=== PATIENT | female | born 1975 | race Caucasian/White ===

== ENCOUNTER 2018-09-19 16:19 | Inpatient (IN) | payer MEDICAID ==
[2018-09-19] VITALS (10 sets, daily range): BP systolic 84–184; BP diastolic 48–95; BMI 38.2
[~2018-09-19] VITALS: Ht 170.2 cm; Wt 106.8 kg
--- NOTE | 2018-09-19 18:18 | NUR ---
RECEIVED PT FROM SURVIVAL FLIGHT TO 2300 TRANSFERRED TO BED. COMFORT GLIDE AIR BLOW SLIDE SHEET PLACED UNDER BED. PT ORALLY INTUBATED SIZE 7.5 TUBE 23 CM LIPLINE VENT SETTINGS AC RATE 16 TV 450 100% PEEP 8.
--- NOTE | 2018-09-19 18:33 | NUR ---
PTS O2 SAT 78% DAVIE RT AT BEDSIDE PT ALREADY ON 100% PEEP INCREASED TO 10 STAT CXR ORDERED
--- NOTE | 2018-09-19 18:35 | NUR ---
DR MOORE ANSWERED PAGE INFORMED PTS O2 SAT 70'S SHE IS CYANOTIC AND VENT ALREADY ON 100% WITH PEEP OF 10. INFORMED RESP WAS GETTING ABG AND CHEST X RAY HERE NOW FOR STAT CHEST XRAY. ASKED WHEN HE WOULD BE HERE. HE STATED HE WOULD BE HERE IN 40-45 MIN TO CALL ABG RESULTS TO HIM
--- NOTE | 2018-09-19 18:37 | NUR ---
RT THERAPY TRYING TO GET STAT ABG
--- NOTE | 2018-09-19 18:38 | NUR ---
DR TERESA OVIEDO
--- NOTE | 2018-09-19 18:39 | NUR ---
XRAY HERE FOR STAT CHEST XRAY
--- NOTE | 2018-09-19 18:50 | NUR ---
DR MOORE PAGED WITH ABG RESULTS OF 7.269, CO2 58.6, PO2 36, HCO3 OF 26.8 HE REQUESTED TO SPEAK TO RESP THERAPIST PER RESP THERAPISTS SEE RESP NOTES FOR ORDERS.
--- NOTE | 2018-09-19 18:56 | NUR ---
CALLED LAB TO COME DRAW STAT LABS THAT ARE ORDERED
--- NOTE | 2018-09-19 19:00 | NUR ---
Received patient in bed on BiPAP 100% with Dr Pimentel at bedside, assessment completed per flowsheet. Patient restless in bed moving extremities, eyes PERRLA @ 3mm with brisk response. ETT 7.0 @ 23cm secured, OGT placed and verified by auscultation. S1/S2 noted NSR on telemetry with HR 98, rythmic and regular. Vent settings A/C R-24 V-450 100% P-12 with O2 sat 88%, crackles noted bilateral upper and mid with diminished lower. Abdomen is obese/soft with bowel sounds active x4, non-tender. Calero secured, small concentrated yellow urine noted. Weakness noted all extremities with all pulses palpable, cap refill < 3 sec with skin warm/dry. No further needs at this time, see flowsheet for details. Will continue close monitoring.
[2018-09-19 19:15] LABS: BASOPHILS 0.3 % (0-2); EOSINOPHILS 0 % (0-7); HEMATOCRIT 40.7 % (36.0-48.0); HEMOGLOBIN 14.1 g/dL (12-16); IMMATURE GRANULOCYTES 0.4 % (0-5); LYMPHOCYTES 6.8 % (15-50); MCH 32.2 pg (26.0-34.0); MCHC 34.6 g/dL (31.0-37.0); MCV 92.9 fL (80.0-100.0); MEAN PLATELET VOLUME 10.4 fL (7.4-10.4); MONOCYTES 3.3 % (2-11); NEUTROPHILS 89.2 % (40-80); PLATELET COUNT 167 10x3/uL (130-400); RBC 4.38 10x6/uL (4.00-5.40); RDW 12.7 % (11.5-14.5)
--- NOTE | 2018-09-19 19:17 | NUR ---
DR MOORE HERE DR SCHWARTZ HERE SLASHER RN KRISHNA AT BEDSIDE. PTS IS ENROUTE
[2018-09-19 19:31] LABS: ALBUMIN 2.5 g/dL (3.4-5.0); ANION GAP 15.4 mmol/L (8-16); BILIRUBIN - TOTAL 0.39 mg/dL (0.2-1.3); CALCIUM 8.1 mg/dL (8.5-10.1); CARBON DIOXIDE 24.9 mmol/L (21.0-32.0); POTASSIUM - SERUM 4.3 mmol/L (3.5-5.1); PROTEIN - SERUM 7.2 g/dL (6.4-8.2)
[2018-09-19 19:39] LABS: CALCIUM 7.8 mg/dL (8.5-10.1); CARBON DIOXIDE 25.3 mmol/L (21.0-32.0); POTASSIUM - SERUM 4.3 mmol/L (3.5-5.1)
--- NOTE | 2018-09-19 20:25 | NUR ---
Dr Pimentel at bedside to place R IJ CVL, to be verified by radiology.
--- NOTE | 2018-09-19 21:00 | NUR ---
Patient off unit to radiology for CTA of chest, patient desat to 76% with movement. Accompanied by RT with AMBU bag for ventilation, O2 sat slow to increase to 94%. Returned to 2300 and reconnected to monitors, family at bedside for visitation. Dr Pimentel/RN answered all questions to satisfaction, no further questions at this time. Will continue close monitoring.
[2018-09-19 21:25] LABS: CKMB 2.8 U/L (0.0-3.6)
[2018-09-19 21:26] LABS: CREATINE KINASE 974 UL (21-215)
[2018-09-19 21:27] LABS: TROPONIN-I 0.625 ng/mL (0.000-0.060)
--- NOTE | 2018-09-19 23:00 | NUR ---
Reassessment completed per flowsheet, patient sedated in bed on vent. S1/S2 noted NSR on telemetry with HR 74, rythmic and regular. Vent settings changed, A/C R-20 V-450 100% P-12 with O2 sat 90%. Crackles noted bilateral upper and mid with diminished lower. All pulses palpable with cap refill < 3 sec, skin warm/dry. No suctioning/repositioning per Dr Pimentel, patient decompensates quickly and slow to recover. See flowsheet for details, will continue close monitoring.
[2018-09-20] VITALS (25 sets, daily range): BP systolic 96–146; BP diastolic 49–66
--- NOTE | 2018-09-20 01:00 | NUR ---
Patient sedated in bed on vent with eyes closed, no changes from previous assessment. Will continue close monitoring.
--- NOTE | 2018-09-20 03:15 | NUR ---
Reassessment completed per flowsheet, no changes from previous assessment. S1/S2 noted NSR on telemetry, rythmic and regular. Vent settings unchanged, crackles noted bilateral upper and mid with diminished lower. All pulses palpable with cap refill < 3 sec, skin warm/dry. No further needs at thist lin, see flowsheet for details. Will continue close monitoring.
--- NOTE | 2018-09-20 05:00 | NUR ---
Patient sedated in bed on vent with eyes closed, no s/s of distress at this time. No changes from previous assessment, all VSS and will continue close monitoring.
[2018-09-20 06:50] LABS: BASOPHILS 0.2 % (0-2); EOSINOPHILS 0 % (0-7); HEMATOCRIT 35.2 % (36.0-48.0); HEMOGLOBIN 11.8 g/dL (12-16); IMMATURE GRANULOCYTES 0.3 % (0-5); LYMPHOCYTES 7.9 % (15-50); MCH 31.5 pg (26.0-34.0); MCHC 33.5 g/dL (31.0-37.0); MCV 93.9 fL (80.0-100.0); MEAN PLATELET VOLUME 10.3 fL (7.4-10.4); MONOCYTES 5.9 % (2-11); NEUTROPHILS 85.7 % (40-80); PLATELET COUNT 156 10x3/uL (130-400); RBC 3.75 10x6/uL (4.00-5.40); RDW 12.8 % (11.5-14.5); WBC 11.1 10x3/uL (4.8-10.8)
[2018-09-20 07:13] LABS: ALBUMIN 2.3 g/dL (3.4-5.0); ALKALINE PHOSPHATASE 97 U/L (46-116); ALT (SGPT) 47 U/L (10-68); BILIRUBIN - TOTAL 0.29 mg/dL (0.2-1.3); CALC OSMOLALITY 290 mosm/kg (275-300); CARBON DIOXIDE 27.1 mmol/L (21.0-32.0); CHLORIDE - SERUM 105 mmol/L (98-107); CKMB 1.9 U/L (0.0-3.6); CREATINE KINASE 770 UL (21-215); GLUCOSE 198 mg/dL (74-106); POTASSIUM - SERUM 4.7 mmol/L (3.5-5.1); PROTEIN - SERUM 6.4 g/dL (6.4-8.2); SODIUM 140 mmol/L (136-145); UREA NITROGEN 28 mg/dL (7-18); eGFR NON AFRICAN AMERICAN 64 mL/min (90-120)
[2018-09-20 07:14] LABS: TROPONIN-I 0.603 ng/mL (0.000-0.060)
--- NOTE | 2018-09-20 08:00 | NUR ---
DAVIE RESP THERAPIST AT BEDSIDE FOR EKG AND RESP TREATMENT.
--- NOTE | 2018-09-20 08:15 | NUR ---
PTS MOTHER (GILBERTO) AT BEDSIDE FOR VISITATION UPDATE GIVEN, INFORMED TRYING TO KEEP PT SEDATED
[2018-09-20 09:01] LABS: CKMB 2.1 U/L (0.0-3.6); CREATINE KINASE 779 UL (21-215)
[2018-09-20 09:02] LABS: TROPONIN-I 0.411 ng/mL (0.000-0.060)
--- NOTE | 2018-09-20 11:00 | NUR ---
HERE FOR ROUNDS
--- NOTE | 2018-09-20 12:18 | NUR ---
DR MOORE ON UNIT SEEING SEVERAL PATIENTS. FAMILY (PTS AND MOTHER) HERE FOR VISITATION INFORMED DR MOORE THEY WISHED TO SPEAK TO HIM HE STATED HE HAD A FEW PATIENTS TO SEE ELSEWHERE AND HE WOULD BE BACK TO SPEAK WITH THEM
--- NOTE | 2018-09-20 13:30 | NUR ---
DR MOORE INSTRUCTS THIS NURSE TO LOOK UP "PRONING FOR ARDS" A VIDEO ON THE NEW [employer] WEBSITE. DR MOORE STATES WE WILL DO THIS LATER TODAY. WHILE I UNDERSTAND THE THEORY AND PRACTICE WE DO NOT HAVE THE EQUIPMENT OR STAFF TO ACCOMODATE AT THIS TIME. RAMIRO GREEN RN, DAVIE RT IN AGREEMENT. NURSE OYSTER UNLOADER NOTIFIED BY PHONE.
--- NOTE | 2018-09-20 14:00 | NUR ---
IVANIA NURSE ARCHITECTURAL DRAFTING INSTRUCTOR SPEAKING WITH DR MOORE VIA PHONE ABOUT PRONING PATIENTS WITH ARDS.
--- NOTE | 2018-09-20 16:35 | NUR ---
DR MOORE HERE TO PLACE ARTLINE. HE SPOKE TO PTS SPOUSE AND PTS MOTHER INFORMED CONSENT BY PTS CONCHA.
--- NOTE | 2018-09-20 17:35 | NUR ---
PTS FAMILY AT BEDSIDE SHE HAS EYES OPEN AND HEART RATE INCREASING AND MOORE STATES INCREASE SEDATION SO DOLORES
--- NOTE | 2018-09-20 19:05 | NUR ---
Received patient sedated in bed on vent with eyes closed, assessment completed per flowsheet. ETT/OGT secured, R IJ CVL patent with dressing CDI. S1/S2 noted NSR on telemetry, rythmic and regular. Vent settings A/C R-26 V-400 100% P-14, lung sounds diminished throughout. R radial A-line zeroed with good waveform, wrist protector in use. Remaining pulses palpable with cap refill < 3 sec, skin warm/dry. No repositioning/suction per Pulmonology, see flowsheet for details. All VSS and will continue to monitor.
--- NOTE | 2018-09-20 21:00 | NUR ---
Patient sedated in bed on vent with eyes closed, family at bedside for visitation. Discussed ventilator/medications, all questions answered to satisfaction. No further needs at this time, all VSS and will continue to monitor.
--- NOTE | 2018-09-20 23:00 | NUR ---
Reassessment completed per flowsheet, no changes from previous assessment. Patient sedated on vent, settings unchanged from previous. R radial A-line with good waveform, wrist protector in use. Remaining pulses palpable with cap refill < 3 sec, skin warm/dry. No repositioning/suction per Pulmonology, no further needs at this time. See flowsheet for details, all VSS and will continue to monitor.
[2018-09-21] VITALS (36 sets, daily range): BP systolic 106–146; BP diastolic 48–87; Ht 170.2 cm; Wt 106.8 kg
--- NOTE | 2018-09-21 01:00 | NUR ---
Patient sedated in bed on vent with eyes closed, no s/s of distress at this time. All VSS and will continue to monitor.
--- NOTE | 2018-09-21 03:00 | NUR ---
Reassessment completed per flowsheet, no changes from previous assessment. ETT/OGT secured, R IJ patent with fluids infusing. Vent settings unchanged, lung sounds diminished throughout. R radial A-line with good waveform, wrist protector in use. Remaining pulses palpable with cap refill < 3 sec, skin warm/dry. No repositioning/suctioning per pulmonology, see flowsheet for details. All VSS and will continue to monitor.
[2018-09-21 04:46] LABS: BASOPHILS 0.1 % (0-2); EOSINOPHILS 0.1 % (0-7); HEMATOCRIT 32.3 % (36.0-48.0); HEMOGLOBIN 10.9 g/dL (12-16); IMMATURE GRANULOCYTES 0.5 % (0-5); LYMPHOCYTES 11.6 % (15-50); MCH 31.9 pg (26.0-34.0); MCHC 33.7 g/dL (31.0-37.0); MCV 94.4 fL (80.0-100.0); MEAN PLATELET VOLUME 10.2 fL (7.4-10.4); MONOCYTES 4.1 % (2-11); NEUTROPHILS 83.6 % (40-80); PLATELET COUNT 151 10x3/uL (130-400); RBC 3.42 10x6/uL (4.00-5.40); RDW 12.7 % (11.5-14.5); WBC 9.5 10x3/uL (4.8-10.8)
[2018-09-21 05:01] LABS: ALBUMIN 2.1 g/dL (3.4-5.0); ANION GAP 9.4 mmol/L (8-16); BILIRUBIN - TOTAL 0.62 mg/dL (0.2-1.3); CALCIUM 7.3 mg/dL (8.5-10.1); CARBON DIOXIDE 28.6 mmol/L (21.0-32.0); CREATININE - SERUM 1.1 mg/dL (0.6-1.3); PROTEIN - SERUM 6.1 g/dL (6.4-8.2)
--- NOTE | 2018-09-21 09:00 | NUR ---
SEDATION CONTINUE---SEE GRAPHIC---FAMILY AT BS
--- NOTE | 2018-09-21 13:00 | NUR ---
SEDATION CONTINUE --BECOME AGITATED AT TIMES----FAMILY AT BS --UPDATE STATUS REPORT GIVE TO FAMILY VIA DR CANNON
--- NOTE | 2018-09-21 17:00 | NUR ---
RESTING QUIETLY CONTINUE--PROPOFOL & FENTANYL CONTINUE FAMILY AT BS
--- NOTE | 2018-09-21 19:10 | NUR ---
PT RECEIVED SEDATED ON VENT. AC 26, TV 400, 100%, 14PEEP. VITAL SIGNS WNL. OGT PATENT TO PULMOCARE AT 20ML/HR AND INCREASE BY 10ML/HR Q 12HRS TOLERATED WITH GOAL OF 40ML/HR. GUNTER PATENT WITH EVELIO URINE. RIGHT IJ WITH DRESSNG C/D/I. FEET AND HANDS ELEVATED. WILL CONTINUE TO OBSERVE.
--- NOTE | 2018-09-21 20:30 | NUR ---
, MOTHER AND FRIEND IN FOR VISITATION. UPDATED ON LAB RESULTS AND ANSWERED OTHER QUESTIONS. WILL CONTINUE TO OBSERVE.
--- NOTE | 2018-09-21 21:40 | NUR ---
MOTHER LEFT UNIT. NO CONCERNS MADE KNOWN BEFORE LEAVING. JUST ASKED TO BE CALL IF CHANGE IN CONDITION. WILL CONTINUE TO OBSERVE.
--- NOTE | 2018-09-21 23:50 | NUR ---
REASSESSMENT COMPLETED, SEE FLOW SHEET. CONTINUES SEDATION WITH VENT. VITAL SIGNS REMAIN WNL, TEMP INCREASED TO 100.2, TYLENOL TO BE GIVEN. WILL CONTINUE TO OBSERVE
[2018-09-22] VITALS (24 sets, daily range): BP systolic 111–175; BP diastolic 56–75
--- NOTE | 2018-09-22 01:40 | NUR ---
PT CONTINUES SEDATION WITH VENT, NO CHANGES TO SETTINGS. FENTANYL SYRINGE CHANGED WITH NEW DIPROVAN BOTTLE. WILL CONTINUE TO OBSERVE.
--- NOTE | 2018-09-22 03:59 | NUR ---
REASSESSMENT COMPLETED, SEE FLOW SHEET. TUBE FEEDING RESIDUAL 90MLS WITH FEED RATE INCREASE TO 30ML/HR PER ORDERS. WILL CONTINUE TO OBSERVE.
[2018-09-22 04:59] LABS: BASOPHILS 0 % (0-2); EOSINOPHILS 0 % (0-7); HEMATOCRIT 30.1 % (36.0-48.0); HEMOGLOBIN 10.1 g/dL (12-16); IMMATURE GRANULOCYTES 0.3 % (0-5); LYMPHOCYTES 5.5 % (15-50); MCH 31.7 pg (26.0-34.0); MCHC 33.6 g/dL (31.0-37.0); MCV 94.4 fL (80.0-100.0); MEAN PLATELET VOLUME 9.7 fL (7.4-10.4); MONOCYTES 1.2 % (2-11); PLATELET COUNT 132 10x3/uL (130-400); RBC 3.19 10x6/uL (4.00-5.40); RDW 12.6 % (11.5-14.5)
[2018-09-22 05:00] LABS: WBC 6.8 10x3/uL (4.8-10.8)
[2018-09-22 05:30] LABS: % SATURATION 13 % (15-55); IRON 24 ug/dl (35-150); TOTAL IRON BIND CAPACITY 174 ug/dl (260-445); UNSAT IRON BIND CAPACITY 150 ug/dl (150-375)
[2018-09-22 05:37] LABS: ALBUMIN 1.9 g/dL (3.4-5.0); BILIRUBIN - TOTAL 0.47 mg/dL (0.2-1.3); CALCIUM 7.6 mg/dL (8.5-10.1); CARBON DIOXIDE 30.3 mmol/L (21.0-32.0); CREATININE - SERUM 0.9 mg/dL (0.6-1.3); PROTEIN - SERUM 6.3 g/dL (6.4-8.2)
[2018-09-22 05:40] LABS: ANION GAP 10.9 mmol/L (8-16); POTASSIUM - SERUM 5.2 mmol/L (3.5-5.1)
[2018-09-22 06:43] LABS: ERYTHROCYTE SEDIMENTATION RATE 75 mm/hr (0-20)
--- NOTE | 2018-09-22 07:00 | NUR ---
SHIFT ASSESSMENT COMPLETED, PT CARE ASSUMED, MONITORS ON AND WORKING, VITALS STABLE. LABS REVIEWED, NO SIGNS/SYMPTOMS OF PAIN OR DISCOMFORT NOTED, PT RESTING SEDATED ON VENTILATOR. WILL CONTINUE TO OBSERVE.
--- NOTE | 2018-09-22 09:00 | NUR ---
PT TURNED AND REPOSITIONED, NO CHANGES, MONITORS ON AND WORKING. VITALS STABLE. NO SIGNS/SYMPTOMS OF PAIN OR DISCOMFORT NOTED AT THIS TIME. WILL CONTINUE TO OBSERVE.
--- NOTE | 2018-09-22 10:45 | EC ---
PATIENT:LELA RIVERA DATE OF SERVICE: 09/19/18 SEX: F MEDICAL RECORD: [id number] DATE OF : [birth year] LOCATION:[facility] AGE OF PATIENT: 43 ADMISSION DATE: 09/19/18 REFERRING PHYSICIAN: INTERPRETING PHYSICIAN: MACEY MANRIQUE MD ECHOCARDIOGRAM REPORT ECHO CHARGES 4 ECHO COMPLETE Date: 09/20/18 CLINICAL DIAGNOSIS: RESP FAILURE,PNEUMONIA ECHOCARDIOGRAPHIC MEASUREMENTS (adult normal given) AC root (d.<3.7cm) 2.6 cm LV Septum d (<1.2 cm> 1.3 cm Valve Excursion 1.7 cm LV Septum (systole) 1.5 cm Left Atria (s.<4.0cm> 3.6 cm LVPW d(<1.2cm) 1.4 cm RV (d.<2.3cm) 3.8 cm LVPW (sytole) 1.5 cm LV diastole(<5.6CM) 3.7 cm MV E-F(>70mm/sec) cm LV systole 2.6 cm LVOT Diameter 1.8 cm MV exc.(>10mm) 1.3 cm Est.ejection fraction (50-75%) % DOPPLER: LVIT cm/sec A 56.0 cm/sec E 78.0 cm/sec LA cm/sec RVSP 40 mmHg LVOT 105 cm/sec AOP1/2T m/s Asc. Ao 176 cm/sec RVOT 100 cm/sec RA cm/sec PA 112 cm/sec AV Gradient Peak 12.37mmHg AV Mean 6.95 mmHg AV Area 1.5 cm MV Gradient Peak 3.95 mmHg MV Mean 1.63 mmHg MV Area cm COMMENTS: Driftman: Henry SHARP Design Consultant: 1 Dr. Manrique TAPE# PACS Pericardial Effusion N DATE OF SERVICE: 09/20/2018 PROCEDURE: Echocardiogram. FINDINGS: 1. Left ventricular chamber size is within normal limits. Left ventricular systolic function is normal. Overall ejection fraction estimated 60%. 2. Left atrium is within normal limits at 3.6 cm. Right atrium and right ventricular chamber sizes are mildly dilated. 3. Valvular structures have normal structure and motion. ECHOCARDIOGRAM REPORT [id number] LELA RIVERA 4. Doppler interrogation reveals mild to moderate tricuspid regurgitation, no other valvular insufficiency or stenosis. Pulmonary systolic pressure is estimated at 40 mmHg. 5. No evidence of pericardial effusion or left ventricular thrombus. TRANSINT:[id number] Voice Confirmation ID: [id number] DOCUMENT ID: [id number] MACEY MANRIQUE MD at 1045 CC: [id number] DICTATION DATE: 09/21/18921 PIPE FITTER FIRE SPRINKLER SYSTEMS: 09/21/18 1117 ADM IN [facility] [address] [id number]
--- NOTE | 2018-09-22 11:00 | NUR ---
PT TURNED AND REPOSITIONED. NO SIGNS/SYMPTOMS OF PAIN OR DISCOMFORT, SEE FLOW SHEET FOR FURTHER DETAILS. WILL CONTINUE TO OBSERVE.
--- NOTE | 2018-09-22 13:00 | NUR ---
PT TURNED AND REPOSITIONED, BED BATH GIVEN, LINEN CHANGE AND OVERLAY AIR MATTRESS PLACED ON PTS BED, NO SIGNS/SYMPTOMS OF PAIN OR DISCOMFORT NOTED AT THIS TIME. WILL CONTINUE TO OBSERVE.
--- NOTE | 2018-09-22 15:00 | NUR ---
PT TURNED AND REPOSITIONED, HEELS FLOATED. SEE FLOW SHEET FOR FURTHER DETAILS. FAMILY AT BEDSIDE DURING ALL VISITING HOURS, UPDATES PROVIDED EACH TIME. MONIOTRS ON AND WORKING, VITALS STABLE, WILL CONTINUE TO OBSERVE.
--- NOTE | 2018-09-22 16:05 | MORECARE ---
CASE MANAGEMENT DISCHARGE SUMMARY PATIENT: LELA RIVERA UNIT: [id number] ADM DATE: 09/19/18 AGE: 43 : [birth year] SEX: F ROOM/BED: D.2301 AUTHOR: YINA WHITTINGTON PHYSICIAN: REFERRING PHYSICIAN: ROYAL SCHWARTZ MD DATE OF SERVICE: 09/22/18 Discharge Plan Patient Name: LELA RIVERA [facility] [facility] 1975 Planned Disposition: Home Anticipated Discharge Date: Discharge Date: Expected LOS: Initial Reviewer: [email or web address] Initial Review Date: 09/21/2018 Generated: 09/22/18 5:04 pm DCPIA - Discharge Planning Initial Assessment Updated by [email or web address]: Jeanne Lopez on 09/22/18 4:04 pm * Is the patient Alert and Oriented? Yes * How many steps to enter\exit or inside your home? * PCP Artis Garcia * Pharmacy [facility] * Preadmission Environment Home with Family * ADLs Independent * Equipment None * List name and contact numbers for known caregivers / representatives who currently or will assist patient after discharge: [facility] - [phone] * Verbal permission to speak to the caregivers and representatives has been obtained from the patient. N/A * Community resources currently utilized None * Additional services required to return to the preadmission environment? No * Can the patient safely return to the preadmission environment? Yes * Has this patient been hospitalized within the prior 30 days at any hospital? No Patient Name: LELA RIVERA Page [phone] at 1605 All edits/amendments must be made on the electronic document DICTATION DATE: 09/22/18 160 BOX CAR CHECKER: FRANCISCA 09/22/18 1604 RPT#: [id number] DC DATE: STATUS: ADM IN [facility] [address] [place] [address] END OF REPORT
--- NOTE | 2018-09-22 16:14 | MORECARE ---
CASE MANAGEMENT DISCHARGE SUMMARY PATIENT: LELA RIVERA UNIT: [id number] ADM DATE: 09/19/18 AGE: 43 : [birth year] SEX: F ROOM/BED: D.2301 AUTHOR: PK,DOC PHYSICIAN: REFERRING PHYSICIAN: ROYAL SCHWARTZ MD DATE OF SERVICE: 09/22/18 Discharge Plan Patient Name: LELA RIVERA Facility: [facility]:[place] : 1975 Planned Disposition: Home Anticipated Discharge Date: Discharge Date: Expected LOS: Initial Reviewer: [email or web address] Initial Review Date: 09/21/2018 Generated: 09/22/18 5:14 pm Comments DCP- Discharge Planning Updated by [id number]: Jeanne Lopez on 09/22/18 3:[address] LATE ENTRY 09/21/18 @ 1610 Patient Name: LELA RIVERA Admission Status: Elective Accout number: [id number] Admission Date: 09-19-2018 : 1975 Admission Diagnosis:ACUTE RESPIRATORY FAILURE WITH HYPOXIA Attending: ROYAL SCHWARTZ Current LOS: 3 Anticipated DC Date: Planned Disposition: Home Primary [place]: [place] [employer] [place] Discharge Planning Comments: CM met with patients mother (Alma Rosa) at beside. Patient is currently on ventilator and sedated. Plan is for patient to return to her home upon discharge. Patient lives at home with her . Alma Rosa stated that the patient and her (Edy) are currently in process of moving. Family uncertain of discharge needs at this time. CM will continue to follow and assist as needed with discharge planning/ needs. Machine Hand: Jeanne Lopez DCPIA - Discharge Planning Initial Assessment Updated by [id number]: Jeanne Lopez on 09/22/18 4:04 pm * Is the patient Alert and Oriented? Yes * How many steps to enter\exit or inside your home? * PCP Artis Garcia * Pharmacy [place] * Preadmission Environment Home with Family * ADLs Independent * Equipment None * List name and contact numbers for known caregivers / representatives who currently or will assist patient after discharge: EDY - - [phone] * Verbal permission to speak to the caregivers and representatives has been obtained from the patient. N/A * Community resources currently utilized None * Additional services required to return to the preadmission environment? No * Can the patient safely return to the preadmission environment? Yes * Has this patient been hospitalized within the prior 30 days at any hospital? No Last DP export: 09/22/18 3:04 p Patient Name: LELA RIVERA Page [phone] at 1614 All edits/amendments must be made on the electronic document DICTATION DATE: 09/22/181612 MINE EQUIPMENT DESIGN ENGINEER: FRANCISCA 09/22/181612 RPT#: [id number] DC DATE: STATUS: ADM IN [facility] [address] [place] [address] END OF REPORT
--- NOTE | 2018-09-22 17:00 | NUR ---
PT TURNED AND REPOSITIONED, NO CHANGES, MONITORS ON AND WORKING, VITALS STABLE, NO SIGNS/SYMPTOMS OF PAIN OR DISCOMFORT NOTED. WILL CONTINUE TO OBSERVE.
--- NOTE | 2018-09-22 19:30 | NUR ---
REPORT RECEIVED, ASSESSEMENT COMPLETE PER FLOW SHEET, MONITORS ON AND WORKING, PT SEDATED ON VENT PER ORDERS, NO ACUTE DISTRESS AT THIS TIME NOTED, MEDS INFUSING PER ORDERS/MAR, VSS, PT MOTHER AT BEDSIDE, ALL QUESTIONS ANSWERED, WILL CONTINUE TO ASSESS
--- NOTE | 2018-09-22 21:00 | NUR ---
PT PLACED IN HEEL PROTECTORS TO REDUCE PRESSURE ON HEELS, FAMILY AT BEDSIDE AND AWARE, REMOVED AND SKIN ASSESSED UNDER RESTRAINTS NO BREAKDOWN NOTED RESTRAINTS REPLACED, VSS, WILL CONTINUE TO ASSESS
--- NOTE | 2018-09-22 22:00 | NUR ---
RT NOTIFIED OF PT GARGLING WITH RESPIRATIONS, ASKED TO CHECK CUFF PRESSURE, INFORMED BY RT THAT LONG Vt IS ABOVE 400 THEN PT IS OK, CUFF CONTINUES TO MAKE GARGLING SOUNDS, WILL CONTINUE TO MONITOR
--- NOTE | 2018-09-22 23:00 | NUR ---
REASSESSMENT COMPLETE PER FLOW SHEET, NO ACUTE CHANGES, PT ON MENSTRUAL CYCLE WITH SNOW PAD IN PLACE, x1 SMALL SEMISOLID BROWN BM NOTED, RPOSITIONED AND CLEANED WITH RT AT BEDSIDE, PT TOLLERATED POSITION CHANGES, VSS, WILL CONTINUE TO MONITOR
[2018-09-23] VITALS (24 sets, daily range): BP systolic 109–150; BP diastolic 49–68
--- NOTE | 2018-09-23 03:00 | NUR ---
REASSESSMENT COMPLETE PER FLOW SHEET, NO ACUTE CHANGES, REPOSITIONED WITH RT AT BEDSIDE, RT AWARE OF GARGLING SOUND FROM ETT CUFF, OGT PLACEMENT VERIFIED, HEEL PROTECTORS IN PLACE, VSS, WILL CONTINUE TO MONITOR
[2018-09-23 05:02] LABS: BASOPHILS 0 % (0-2); EOSINOPHILS 0 % (0-7); HEMATOCRIT 28.9 % (36.0-48.0); HEMOGLOBIN 9.6 g/dL (12-16); IMMATURE GRANULOCYTES 0.8 % (0-5); MCH 31.7 pg (26.0-34.0); MCHC 33.2 g/dL (31.0-37.0); MCV 95.4 fL (80.0-100.0); MEAN PLATELET VOLUME 10.2 fL (7.4-10.4); MONOCYTES 4.8 % (2-11); NEUTROPHILS 90.4 % (40-80); RBC 3.03 10x6/uL (4.00-5.40); RDW 12.8 % (11.5-14.5)
[2018-09-23 05:10] LABS: PLATELET COUNT 192 10x3/uL (130-400)
[2018-09-23 05:24] LABS: ALBUMIN 1.9 g/dL (3.4-5.0); ANION GAP 10.7 mmol/L (8-16); BILIRUBIN - TOTAL 0.36 mg/dL (0.2-1.3); CALCIUM 7.6 mg/dL (8.5-10.1); CARBON DIOXIDE 30.8 mmol/L (21.0-32.0); MAGNESIUM - SERUM 3.2 mg/dL (1.8-2.4); PHOSPHOROUS 2.6 mg/dL (2.5-4.9); POTASSIUM - SERUM 5.5 mmol/L (3.5-5.1); PROTEIN - SERUM 6.3 g/dL (6.4-8.2)
--- NOTE | 2018-09-23 06:00 | NUR ---
[facility], PT TOLLERATING WITH NO S/S OF ACUTE DISTRESS, WILL CONTINUE TO MONITOR
--- NOTE | 2018-09-23 08:07 | NUR ---
FAMILY AT BEDSIDE. UPDATE GIVEN.
--- NOTE | 2018-09-23 09:00 | NUR ---
PATIENT RESTING IN BED SEDATED ON VENT WITH PROPOFOL AT 55MCG AND FENTANYL AT 200MCG. VENT PER ORDERED SETTINGS. VSS. FAMILY IN ROOM. WITHDREW 120 ML RESIDUAL FROM OGT. AUSCULTATED FOR PLACEMENT VERIFICATION. WILL CONTINUE TO MONITOR
--- NOTE | 2018-09-23 09:09 | NUR ---
Nutrition follow-up: Pt remains intubated, sedated Propofol @ 36.4 ml/hr TF formula changed to Nepro due to elevated K Nepro infusing @ 20 ml/hr and will increase to goal rate of 35 ml/hr Labs reviewed WT: 261# +BM Recommend goal rate of 40 ml/hr to meet 100% of daily RDI's RDN following.
[2018-09-23] MEDS ORDERED: TOPROL XL50 MG PO (09:27)
--- NOTE | 2018-09-23 10:00 | NUR ---
CHANGED IV TUBING FOR PROPOFOL.
[2018-09-23 11:20] LABS: ANA REFLEX - DIRECT Negative (Negative)
--- NOTE | 2018-09-23 12:00 | NUR ---
CHANGED CENTRAL LINE DRESSING.
--- NOTE | 2018-09-23 14:10 | NUR ---
CONSULTED DR. SCHWARZ PER DR. CANNON ORDERS
--- NOTE | 2018-09-23 14:57 | NUR ---
CHANGED ALL PATIENT LINENS AND TURNED TO LEFT SIDE. SUCTIONED ORALLY AND ET. CHANGED PERINEAL PAD FOR PERIOD. PADS WERE BLOODY. CLEANED AREA AND CATHETER.
--- NOTE | 2018-09-23 17:00 | NUR ---
PT RESTING IN BED SEDATED ON VENTILATOR PER SETTINGS. FI02 AT 75%. PROPOFOL INFUSING AT 55 MCG. FENTANYL INFUSING AT 200MCG/KG/MIN. VSS. WILL CONTINUE TO MONITOR
--- NOTE | 2018-09-23 19:30 | NUR ---
SHIFT ASSESSMENT COMPLETE, ORAL CARE PROVIDED, PATIENT REPOSITIONED, WILL CONTINUE TO MONITOR
--- NOTE | 2018-09-23 20:00 | NUR ---
THIS PATIENTS MOTHER AND AT BEDSIDE. CURRENTLY ANSWERING QUESTIONS AND GIVING UPDATES
--- NOTE | 2018-09-23 21:30 | NUR ---
THIS NURSE HAS REMAINED AT PATIENT BEDSIDE, WITH PATIENT'S MOTHER AND SINCE 1999 ANSWERING ANY AND ALL QUESTIONS REGARDING LAB VALUES, MEDICAL EQUIPMENT, DISEASE PROCESS, ETC. MOTHER AND SON STATE THAT THEY HAVE NO FURTHER QUESTIONS AT THIS TIME, WILL CONTINUEU POC
--- NOTE | 2018-09-23 23:00 | NUR ---
RE-ASSESSMENT COMPLETE, PER NURSING FLOWSHEET, PATIENT REPOSITIONED, ORAL CARE PROVIDED, TYLENOL GIVEN FOR FEVER
[2018-09-24] VITALS (24 sets, daily range): BP systolic 109–149; BP diastolic 48–107
--- NOTE | 2018-09-24 | NUR ---
TEMPERATURE RECHECK FOR THIS PATIENT, STILL REMAINS ELEVATED, PLACED ICE PACKS TO THIS PATIENT'S ARM PITS AND GROIN, WILL RE-EVALUATE
--- NOTE | 2018-09-24 01:00 | NUR ---
PATIENT REPOSITIONED, GUNTER CARE PROVIDED, PATIENT TEMPERATURE RECHECKED AND HAS IMPROVED, WILL CONTINUE TO CLOSELY MONITOR
--- NOTE | 2018-09-24 03:00 | NUR ---
RE-ASSESSMENT COMPLETE, PER NURSING FLOWSHEET, PATIENT REPOSITIONED, ORAL CARE PROVIDED, CONTINOUSLY MONITORING VSS
--- NOTE | 2018-09-24 05:00 | NUR ---
PATIENT REPOSITIONED, ORAL CARE PROVIDED, FEVER IMPROVED, VSS, CONTINUE POC
[2018-09-24 06:18] LABS: BASOPHILS 0 % (0-2); EOSINOPHILS 0.5 % (0-7); HEMATOCRIT 28.5 % (36.0-48.0); HEMOGLOBIN 9.3 g/dL (12-16); LYMPHOCYTES 4.5 % (15-50); MCH 31.3 pg (26.0-34.0); MCHC 32.6 g/dL (31.0-37.0); MEAN PLATELET VOLUME 9.7 fL (7.4-10.4); MONOCYTES 7.1 % (2-11); NEUTROPHILS 86.9 % (40-80); PLATELET COUNT 225 10x3/uL (130-400); RBC 2.97 10x6/uL (4.00-5.40); RDW 13.3 % (11.5-14.5); WBC 8.7 10x3/uL (4.8-10.8)
--- NOTE | 2018-09-24 06:30 | NUR ---
COMPLETE LINEN CHANGE, SMALL INCONTINENT EPISODE, STOOL SAMPLE COLLECTED, SNOW CARE PROVIDED AND FEMININE PAD CHANGED, MINIMAL AMONUNT NOTED TO FEMININE PAD
[2018-09-24 06:39] LABS: ALBUMIN 2.1 g/dL (3.4-5.0); ANION GAP 11.3 mmol/L (8-16); BILIRUBIN - TOTAL 0.45 mg/dL (0.2-1.3); CALCIUM 7.9 mg/dL (8.5-10.1); CARBON DIOXIDE 31.1 mmol/L (21.0-32.0); POTASSIUM - SERUM 5.4 mmol/L (3.5-5.1); PROTEIN - SERUM 6.3 g/dL (6.4-8.2)
--- NOTE | 2018-09-24 07:00 | NUR ---
PATIENT RESTING IN BED SEDATED ON VENTILATOR. PROPOFOL INFUSING AT 55 MCG/MIN. NS INFUSING AT 20ML--BOTH THROUGH RIGHT IJ. DRESSING CLEAN AND DRY. RIGHT RADIAL ART LINE FLUSHES--DRESSING CLEAN AND DRY. BP MATCHES CUFF BLOOD PRESSURE. OGT CAME OUT OF PLACE--WILL REINSERT. RESTRAINTS IN PLACE. NURSES TURNED PATIENT LEFT SIDE LYING POSITION. LINENS CLEAN AND DRY. HEELS ELEVATED OFF BED. SUCTIONED. ORALLY AND ETT. VSS. WILL CONTINUE TO MONITOR
--- NOTE | 2018-09-24 08:36 | NUR ---
OGT FELL OUT LAST NIGHT. DROPPED NEW 18 GUAGE OGT. GOT YELLOW BILE RETURN. AUSCULTATED FOR PLACCEMENT. TAPED TO ETT.
--- NOTE | 2018-09-24 11:10 | NUR ---
ADMINISTERED MEDS. INCREASED NEPRO OGT FEED TO 30L/HR (35 IS GOAL). TEMP 100.6. MOVED BP CUFF FROM RIGHT CALF TO LEFT ARM--READING IS CLOSER TO ART LINE HERE. WILL CONTINUE TO MONITOR.
--- NOTE | 2018-09-24 13:00 | NUR ---
TURNED PATIENT TO RIGHT SIDE LYING POSITION AND CLEANED CATHETER. VSS. FAMILY IN ROOM.
--- NOTE | 2018-09-24 14:54 | NUR ---
DR. SCHWARZ CAME BY TO SEE PATIENT AND RECEIVE PATIENT UPDATE. NO VERBAL ORDERS GIVEN.
--- NOTE | 2018-09-24 15:30 | NUR ---
CALLED PATIENTS MOTHER GILBERTO PER DR. PARKER REQUEST SINCE HE MISSED THEM TODAY MAKING ROUNDS. JUST WANTED TO TOUCH BASE WITH THE FAMILY FOR TODAY AND GIVE UPDATES.
--- NOTE | 2018-09-24 15:50 | NUR ---
CHANGED FEMININ PADS AND CLEANED SNOW AREA/CATHETER. VSS. WILL CONTINUE TO MONITOR
--- NOTE | 2018-09-24 17:00 | NUR ---
PATIENT RESTING IN BED SEDATED ON VENTILATOR PER PRESCRIBED SETTINGS. VSS. WILL CONTINUE TO MONITOR
--- NOTE | 2018-09-24 19:25 | NUR ---
REPORT RECEIVED. PT CONTINUES SEDATION AND VENT. TUBE FEEDING PATENT TO OGT. RECEIVING FENTANYL AND DIPROVAN. GUNTER PATENT. RIGHT IJ DRESSING C/D/I. NO S/S OF DISTRESS. WILL CONTINUE TO OBSERVE.
--- NOTE | 2018-09-24 20:55 | NUR ---
MOTHER INTO ROOM AT 2009. DIPROVAN CHANGED WITH TUBING. NEW SYRINGE OF FENTANYL ADMINISTERING. TUBE FEEDING CHANGED WITH 65ML RESIDUAL NOTED. REPOSTIONING PROVIDED. GUNTER EMPTIED WITH 1200ML NOTED YELLOW URINE. ZOSYN ORDER D/C'D WITH MAXAPINE STARTED. WILL CONTINUE TO OBSERVE.
--- NOTE | 2018-09-24 23:15 | NUR ---
REASSESSMENT COMPLETED, SEE FLOW SHEET. NO CHANGES NOTED. REPOSITIONING PROVIDED. WILL CONTINUE TO OBSERVE.
[2018-09-25] VITALS (26 sets, daily range): BP systolic 91–169; BP diastolic 49–90
--- NOTE | 2018-09-25 01:26 | NUR ---
PT REPOSITIONED. PERICARE PROVIDED DUE TO MENSTRAL BLEEDING, SLIGHT BLEEDING NOTED. WILL CONTINUE TO OBSERVE.
--- NOTE | 2018-09-25 03:30 | NUR ---
REASSESSMENT COMPLETED, SEE FLOW SHEET. NO CHANGES NOTED. WILL CONTINUE TO OBSERVE.
[2018-09-25 04:31] LABS: BASOPHILS 0.1 % (0-2); EOSINOPHILS 0.6 % (0-7); HEMATOCRIT 28.8 % (36.0-48.0); HEMOGLOBIN 9.5 g/dL (12-16); IMMATURE GRANULOCYTES 4.2 % (0-5); LYMPHOCYTES 9.4 % (15-50); MCH 31.6 pg (26.0-34.0); MCV 95.7 fL (80.0-100.0); MEAN PLATELET VOLUME 9.6 fL (7.4-10.4); MONOCYTES 8.8 % (2-11); NEUTROPHILS 76.9 % (40-80); PLATELET COUNT 244 10x3/uL (130-400); RBC 3.01 10x6/uL (4.00-5.40); RDW 13.1 % (11.5-14.5); WBC 9.1 10x3/uL (4.8-10.8)
[2018-09-25 04:43] LABS: ALBUMIN 2.1 g/dL (3.4-5.0); ANION GAP 6.2 mmol/L (8-16); BILIRUBIN - TOTAL 0.41 mg/dL (0.2-1.3); CARBON DIOXIDE 36.3 mmol/L (21.0-32.0); CREATININE - SERUM 1.1 mg/dL (0.6-1.3); PROTEIN - SERUM 6.1 g/dL (6.4-8.2)
[2018-09-25 04:45] LABS: POTASSIUM - SERUM 4.5 mmol/L (3.5-5.1)
--- NOTE | 2018-09-25 06:03 | NUR ---
PT DRESSINGS REINFORCED WITH ABD PAD AND SECURED WITH TAPE. PT TOLERATED WELL. WILL CONTINUE TO OBSERVE.
--- NOTE | 2018-09-25 07:00 | NUR ---
PATIENT RESTING IN BED SEDATED ON VENTILATOR PER ORDERED SETTINGS WITH 60% FI02. O2 SAT 98%. BP STABLE. HR SLIGHTLY SINUS TACHY (101). TEMP 100.6. LUNG ARTEAGA CLEAR. HEELS PROPPED UP AND WITH HEEL PROTECTORS. SCD'S IN PLACE. ART LINE TO RIGHT RADIAL (BP MATCHES CUFF). CVP ZEROED AND READS 9. PROPOFOL AT 50 MCG, FENTANYL AT 200MCG, BOTH INFUSING THROUGH RIGHT IJ. LINENS ARE CLEAN AND DRY.
--- NOTE | 2018-09-25 07:43 | NUR ---
Nutrition follow-up: Intubated, sedated Nepro infusing @ 30 ml/hr via OGT; shoudl be at goal rate of 35 ml/hr today Labs reviewed; Na, Cl elevated NS @ 20 ml/hr Wt: 268# Diuretics increased Pt appears dry with no TF flushes ordered. Recommend 25 ml h2o flush hour RDN following.
--- NOTE | 2018-09-25 09:00 | NUR ---
FAMILY IN ROOM. PULLED PATIENT UP IN BED AND TURNED TO LEFT SIDE. SUCTIONED ETT. HOLDING LASIX FOR CVP OF 9. DR. CANNON WROTE NOTE TO HOLD LASIX FOR CVP LESS THAN 12. VSS.
--- NOTE | 2018-09-25 11:00 | NUR ---
CHANGED PROPOFOL TUBING. VSS. WILL CONTINUE TO MONITOR
--- NOTE | 2018-09-25 12:52 | NUR ---
VANCOMYCIN TROUGH WAS 9.7 DRAWN AFTER ABOUT 10 HOURS. WILL BUMP UP HIS DOSING FREQUENCY TO 1.5 GM Q8H
--- NOTE | 2018-09-25 13:00 | NUR ---
PULLED PATIENT UP IN BED AND TURNED TO RIGHT SIDE. LINENS CLEAN AND DRY. VSS.
--- NOTE | 2018-09-25 15:00 | NUR ---
INCREASED FENTANYL DRIP FROM 200 TO 300MCG/MIN BECAUSE PATIENT IS REQUIRING MORE AND MORE PROPOFOL TO REMAIN SEDATED.
--- NOTE | 2018-09-25 17:00 | NUR ---
CHANGED TUBING FOR OGT. NEPRO INFUSING AT 35ML/HR. VSS. WILL CONTINUE TO MONITOR.
--- NOTE | 2018-09-25 19:43 | NUR ---
RECEIVED PT CARE - PATIENT INTUBATED/SEDATED ON VENTILATOR SOFT WRIST RESTRAINTS BILAT. SHIFT ASSESSMENT COMPLETED - SEE FLOWSHEET VSS CPOC
--- NOTE | 2018-09-25 20:50 | NUR ---
HS MEDS RECEIVED - FAMILY AT BEDSIDE. ALL QUESTIONS ANSWERED UPDATE GIVEN, GUNTER CARE PERFORMED AT THIS TIME, SCANT MENSTURAL BLOOD NOTED VSS CPOC
--- NOTE | 2018-09-25 23:20 | NUR ---
REASSESSMENT COMPLETED SEE FLOWSHEET
[2018-09-26] VITALS (26 sets, daily range): BP systolic 87–140; BP diastolic 52–103
--- NOTE | 2018-09-26 00:02 | NUR ---
[facility] CONTACTED REGARDING ELEVATED SYSTOLIC BLOOD PRESSURE, NO NEW ORDERS AT THIS TIME
--- NOTE | 2018-09-26 01:05 | NUR ---
PT INTUBATED/SEDATED AND ON VENTILATOR - NO APPARANT DISTRESS NO ACUTE CHANGES VSS CPOC
--- NOTE | 2018-09-26 03:15 | NUR ---
REASSESSMENT COMPLETED SEE FLOWSHEET
--- NOTE | 2018-09-26 05:20 | NUR ---
PT INTUBATED AND SEDATED ON THE VENTILATOR - VSS CPOC
[2018-09-26 05:24] LABS: BASOPHILS 0.1 % (0-2); EOSINOPHILS 0.7 % (0-7); HEMATOCRIT 28.9 % (36.0-48.0); HEMOGLOBIN 9.6 g/dL (12-16); IMMATURE GRANULOCYTES 3.1 % (0-5); MCH 31.8 pg (26.0-34.0); MCHC 33.2 g/dL (31.0-37.0); MCV 95.7 fL (80.0-100.0); MEAN PLATELET VOLUME 9.6 fL (7.4-10.4); MONOCYTES 5.3 % (2-11); NEUTROPHILS 78.8 % (40-80); PLATELET COUNT 224 10x3/uL (130-400); RBC 3.02 10x6/uL (4.00-5.40); RDW 12.7 % (11.5-14.5); WBC 9.6 10x3/uL (4.8-10.8)
[2018-09-26 05:42] LABS: ALBUMIN 2.2 g/dL (3.4-5.0); ANION GAP 9.5 mmol/L (8-16); BILIRUBIN - TOTAL 0.45 mg/dL (0.2-1.3); CREATININE - SERUM 0.9 mg/dL (0.6-1.3); MAGNESIUM - SERUM 2.3 mg/dL (1.8-2.4); PHOSPHOROUS 3.5 mg/dL (2.5-4.9); POTASSIUM - SERUM 4.5 mmol/L (3.5-5.1); PROTEIN - SERUM 6.3 g/dL (6.4-8.2)
--- NOTE | 2018-09-26 07:00 | NUR ---
REPORT RECEIVED. INITIAL ASSESSMENT COMPLETE. PT SEDATED WITH DIPRIVAN AND FENTANYL SEE IV FLOWSHEET PT HAS RIGHT CENTRAL LINE WITH CVP AND RIGHT RADIAL ARTLINE BOTH CALIBRATED AND ZEROED CVP READING 11 AND ARTLINE CORRELATING WITH NIBP GOOD WAVEFORM. CM READING SR WITH ALARMS ON AND AUDIBLE PT ON FIRST STEP OVERLAY. ORALLY INTUBATED TO VENT SEE RESP FLOWSHEETS FOR DETAILS. O2 SAT READING 96%. BED IN LOW POSITION AND SIDE RAILS UP TIMES 3 FOR SAFETY. VSS AT THIS TIME WILL CONTINUE TO MONITOR
--- NOTE | 2018-09-26 08:00 | NUR ---
PTS MOTHER AND FATHER AT BEDSIDE UPDATED AND ANSWERED QUESTIONS
--- NOTE | 2018-09-26 10:00 | NUR ---
REPOSITIONED FOR PRESSURE RELIEF WITH WEDGES. VSS NO DISTRESS NOTED AT THIS ITME
--- NOTE | 2018-09-26 11:00 | NUR ---
REASSESSMENT COMPLETED SEE FLOWSHEET FOR CHANGES
--- NOTE | 2018-09-26 11:00 | NUR ---
DR CANNON ROUNDING NEW ORDERS NOTED PTS PEEP DECREASED TO 12
--- NOTE | 2018-09-26 12:00 | NUR ---
FAMILY HERE UPDATE GIVEN
--- NOTE | 2018-09-26 15:00 | NUR ---
REASSESSMENT MADE REPOSITIONED
--- NOTE | 2018-09-26 16:00 | NUR ---
PTS MOTHER AND FATHER AT BEDSIDE UPDATE GIVEN
--- NOTE | 2018-09-26 16:20 | NUR ---
DR CANNON CALLED UNIT REQUESTING TO SPEAK WITH PTS . UPDATE GIVEN VIA PHONE. THIS NURSE ALSO SPOKE WITH DAVIS INFORMED OF DECREASED URINE OUTPUT CVP 11 THIS AM AND 13 NOW, HE STATED JUST WATCH FOR NOW.
[2018-09-26 17:15] LABS: APPEARANCE HAZY (CLEAR); COLOR YELLOW (YELLOW); NITRITE NEGATIVE (NEGATIVE); PROTEIN TRACE mg/dL (NEGATIVE)
[2018-09-26 17:16] LABS: AMORPHOUS SEDIMENT <1+ /lpf (NONE SEEN); BACTERIA FEW /hpf (NONE SEEN); BILIRUBIN NEGATIVE (NEGATIVE); EPITHELIAL CELLS 0-5 /hpf (0-5); GLUCOSE 1000 mg/dL (NEGATIVE); KETONE NEGATIVE (NEGATIVE); UROBILINOGEN NORMAL (NORMAL); WHITE CELLS - URINE 0-5 /hpf (0-5)
--- NOTE | 2018-09-26 19:17 | NUR ---
RECEIVED PATIENT CARE - SHIFT ASSESSMENT COMPLETED SEE FLOWSHEET. PT REPOSITONED FOR COMFORT. VSS CPOC
--- NOTE | 2018-09-26 21:00 | NUR ---
HS MEDICATIONS RECEIVED - FAMILY AT BEDSIDE, ELEVATED HR AND BP NOTED - PT BREATHING 22-30 BREATHS PER MINUTE - FENTANYL TITRATED AT THIS TIME SEE FLOWSHEET. NO FEVER NOTED - TEMP 99.5. CPOC
--- NOTE | 2018-09-26 23:03 | NUR ---
REASSESSMENT COMPLETED SEE FLOWSHEET. VSS. NORMAL SINUS NOTED, BP STABLE. CPOC
[2018-09-27] VITALS (25 sets, daily range): BP systolic 103–140; BP diastolic 45–92
--- NOTE | 2018-09-27 02:47 | NUR ---
REASSESSMENT COMPLETED, ELEVATED TEMP AT THIS TIME. WILL REASSESS TEMPERATURE AFTER BED BATH. CVP TUBING CHANGED PER PROTOCOL, TUBE FEED BAG CHANGED PER PROTOCOL. VSS CPOC
[2018-09-27 05:15] LABS: BASOPHILS 0.1 % (0-2); EOSINOPHILS 0.7 % (0-7); HEMOGLOBIN 9.6 g/dL (12-16); IMMATURE GRANULOCYTES 2.7 % (0-5); LYMPHOCYTES 8.5 % (15-50); MCH 31.6 pg (26.0-34.0); MCHC 33.1 g/dL (31.0-37.0); MCV 95.4 fL (80.0-100.0); MEAN PLATELET VOLUME 10.3 fL (7.4-10.4); MONOCYTES 5.1 % (2-11); NEUTROPHILS 82.9 % (40-80); PLATELET COUNT 235 10x3/uL (130-400); RBC 3.04 10x6/uL (4.00-5.40); RDW 12.6 % (11.5-14.5)
[2018-09-27 05:18] LABS: WBC 12.8 10x3/uL (4.8-10.8)
[2018-09-27 05:34] LABS: CALC OSMOLALITY 300 mosm/kg (275-300); CALCIUM 8.1 mg/dL (8.5-10.1); CHLORIDE - SERUM 106 mmol/L (98-107); CREATINE KINASE 195 UL (21-215); CREATININE - SERUM 0.7 mg/dL (0.6-1.3); GLUCOSE 246 mg/dL (74-106); POTASSIUM - SERUM 4.5 mmol/L (3.5-5.1); SODIUM 144 mmol/L (136-145); UREA NITROGEN 29 mg/dL (7-18); eGFR NON AFRICAN AMERICAN > 90 mL/min (90-120)
--- NOTE | 2018-09-27 05:45 | NUR ---
PT TEMPERATURE 99.1 AT THIS TIME, FULL BED BATH AND LINEN CHANGE COMPLETED. VSS. NO SIGNS OF DISTRESS CPOC
--- NOTE | 2018-09-27 07:00 | NUR ---
ASSESSMENT COMPLETE PT SEDATED WITH FENTANYL AND DIPRIVAN. HELD DIPRIVAN FOR FEW MINUTES TO ASSESS NEURO SHE DOES MOVE UPPER EXTREMITIES HER HEART RATE AND BLOOD PRESSURE INCREASE RAPIDLY SO BACK ON DIPRIVAN. PT ON CM WITH ALARMS ON AND AUDIBLE READING SR WITHOUT ECTOPY. ORALLY INTUBATED SEE RESP CHARTING FOR VENT SETTINGS. RIGHT RADIAL ARTLINE AND CVP BOTH ZEROED AND CALIBRATED WITH GOOD WAVEFORM. CVP READING OF 7. BED IN LOW POSITION SIDE RAILS UP TIMES 3 FOR SAFETY. SKIN WARM AND DRY PT DOES HAVE DEEP TISSUE RED AREAS TO BUTTOCK AND LEFT HEEL SKIN INTACT. USING COMFORT GLIDE AND WEDGES TO RELIEVE PRESSURE
--- NOTE | 2018-09-27 08:00 | NUR ---
FAMILY HERE FOR VISITATION UPDATE GIVEN.
--- NOTE | 2018-09-27 09:00 | NUR ---
DR CANNON ROUNDING ON PT, HE DECREASED PTS VENT O2 DOWN TO 40% FROM 45%
--- NOTE | 2018-09-27 11:00 | NUR ---
REASSESSMENT MADE SEE FLOWSHEET FOR CHANGES. REPOSITIONED FOR COMFORT. NO DISTRESS NOTED
--- NOTE | 2018-09-27 12:45 | NUR ---
DR CANNON HERE SPEAKING WITH FAMILY AND UPDATE GIVEN
--- NOTE | 2018-09-27 13:30 | NUR ---
DR SORTO ROUNDING AND SPEAKING WITH FAMILY.
--- NOTE | 2018-09-27 16:00 | NUR ---
PTS FAMILY HERE FOR VISITATION. VSS NO DISTRESS NOTED.
--- NOTE | 2018-09-27 19:05 | NUR ---
RECEIVED PATIENT CARE - SHIFT ASSESSMENT COMPLETED, VSS SKIN WARM, TEMPERATURE SLIGHTLY ELEVATED. WILL CONTINUE TO MONITOR CPOC
--- NOTE | 2018-09-27 21:55 | NUR ---
FAMILY AT BEDSIDE, QUESTIONS ANSWERED UPDATE GIVEN CPOC - VSS
--- NOTE | 2018-09-27 23:30 | NUR ---
REASSESSMENT COMPLETED - SEE FLOWSHEET VSS CPOC
[2018-09-28] VITALS (25 sets, daily range): BP systolic 98–157; BP diastolic 52–96
--- NOTE | 2018-09-28 00:09 | NUR ---
PATIENT ALARMING - 15 BEAT RUN OF VTACH , HR AT 140 - CALLED DR SORTO. LINE IS BUSY
--- NOTE | 2018-09-28 00:16 | NUR ---
DR. SORTO CONTACTED - NEW ORDERS RECEIVED
--- NOTE | 2018-09-28 00:33 | NUR ---
RT AT BEDSIDE DRAWING ABG'S PER ORDER
[2018-09-28 01:36] LABS: CALC OSMOLALITY 297 mosm/kg (275-300); CALCIUM 7.9 mg/dL (8.5-10.1); CHLORIDE - SERUM 103 mmol/L (98-107); CKMB 0.6 U/L (0.0-3.6); CREATINE KINASE 124 UL (21-215); CREATININE - SERUM 0.8 mg/dL (0.6-1.3); GLUCOSE 300 mg/dL (74-106); MAGNESIUM - SERUM 2.1 mg/dL (1.8-2.4); POTASSIUM - SERUM 4.7 mmol/L (3.5-5.1); SODIUM 141 mmol/L (136-145); TROPONIN-I 0.025 ng/mL (0.000-0.060); UREA NITROGEN 30 mg/dL (7-18); eGFR NON AFRICAN AMERICAN 82 mL/min (90-120)
--- NOTE | 2018-09-28 03:07 | NUR ---
PT INTUBATED/SEDATED - VSS REASSESSMENT COMPLETED SEE FLOWSHEET CPOC
--- NOTE | 2018-09-28 05:50 | NUR ---
MOTHER GILBERTO CALLED QUESTIONS ANSWERED UPDATE GIVEN
[2018-09-28 05:55] LABS: BASOPHILS 0.2 % (0-2); EOSINOPHILS 0.6 % (0-7); HEMATOCRIT 26.8 % (36.0-48.0); HEMOGLOBIN 8.9 g/dL (12-16); LYMPHOCYTES 8.5 % (15-50); MCH 31.8 pg (26.0-34.0); MCHC 33.2 g/dL (31.0-37.0); MCV 95.7 fL (80.0-100.0); MONOCYTES 4.7 % (2-11); PLATELET COUNT 200 10x3/uL (130-400); RDW 12.8 % (11.5-14.5); WBC 13.1 10x3/uL (4.8-10.8)
[2018-09-28 06:32] LABS: ALBUMIN 2.2 g/dL (3.4-5.0); ALKALINE PHOSPHATASE 57 U/L (46-116); ALT (SGPT) 58 U/L (10-68); AMYLASE - SERUM 149 U/L (25-115); BILIRUBIN - TOTAL 0.53 mg/dL (0.2-1.3); CALC OSMOLALITY 298 mosm/kg (275-300); CALCIUM 8.1 mg/dL (8.5-10.1); CARBON DIOXIDE 31.3 mmol/L (21.0-32.0); CHLORIDE - SERUM 107 mmol/L (98-107); CKMB 0.6 U/L (0.0-3.6); CREATINE KINASE 105 UL (21-215); CREATININE - SERUM 0.7 mg/dL (0.6-1.3); MAGNESIUM - SERUM 2.3 mg/dL (1.8-2.4); PHOSPHOROUS 3.6 mg/dL (2.5-4.9); POTASSIUM - SERUM 4.3 mmol/L (3.5-5.1); PROTEIN - SERUM 6.4 g/dL (6.4-8.2); SODIUM 143 mmol/L (136-145); TROPONIN-I 0.024 ng/mL (0.000-0.060); UREA NITROGEN 30 mg/dL (7-18); eGFR NON AFRICAN AMERICAN > 90 mL/min (90-120)
[2018-09-28 07:09] LABS: GLUCOSE 246 mg/dL (74-106); LIPASE 1611 U/L (73-393)
--- NOTE | 2018-09-28 09:06 | NUR ---
Nutrition follow-up: Pt remains intubated, sedated Propofol @ 36.4 ml/hr Nepro @ 35 ml/hr Labs reviewed; glucose elevated; pt on SoluMedrol Wt: 272# Recommend increasing TF to goal rate of 40 ml/hr to better meet est protein needs. RDN following.
--- NOTE | 2018-09-28 09:20 | NUR ---
DR. MOORE - ORDERED ADD ONE CHOLESTEROL - SUGGESTED LOWERING PROPROFOL AFTER ASSESSMENT OF CHOLESEROL LABS
--- NOTE | 2018-09-28 10:20 | MORECARE ---
CASE MANAGEMENT DISCHARGE SUMMARY PATIENT: LELA RIVERA UNIT: [id number] ADM DATE: 09/19/18 AGE: 43 : 73 SEX: F ROOM/BED: D.2301 AUTHOR: PK,DOC PHYSICIAN: REFERRING PHYSICIAN: ROYAL SCHWARTZ MD DATE OF SERVICE: 09/28/18 Discharge Plan Patient Name: LELA RIVERA Facility: [facility]:[place] : 1975 Planned Disposition: Home Anticipated Discharge Date: Discharge Date: Expected LOS: Initial Reviewer: [id number] Initial Review Date: 09/21/2018 Generated: 09/28/18 11:19 am Comments DCP- Discharge Planning Updated by [email or web address]: Jeanne Lopez on 09/22/18 3:[address] LATE ENTRY 09/21/18 @ 1610 Patient Name: LELA RIVERA Admission Status: Elective Accout number: [id number] Admission Date: 09-19-2018 : 1975 Admission Diagnosis:ACUTE RESPIRATORY FAILURE WITH HYPOXIA Attending: ROYAL SCHWARTZ Current LOS: 3 Anticipated DC Date: Planned Disposition: Home Primary [place]: [place] [employer] [place] Discharge Planning Comments: CM met with patients mother (Alma Rosa) at beside. Patient is currently on ventilator and sedated. Plan is for patient to return to her home upon discharge. Patient lives at home with her . Alma Rosa stated that the patient and her (Edy) are currently in process of moving. Family uncertain of discharge needs at this time. CM will continue to follow and assist as needed with discharge planning/ needs. Outboard Motor Inspector: Jeanne Lopez DCPIA - Discharge Planning Initial Assessment Updated by [id number]: Jeanne Lopez on 09/22/18 4:04 pm * Is the patient Alert and Oriented? Yes * How many steps to enter\exit or inside your home? * PCP Artis Garcia * Pharmacy [facility] * Preadmission Environment Home with Family * ADLs Independent * Equipment None * List name and contact numbers for known caregivers / representatives who currently or will assist patient after discharge: EDY - - [phone] * Verbal permission to speak to the caregivers and representatives has been obtained from the patient. N/A * Community resources currently utilized None * Additional services required to return to the preadmission environment? No * Can the patient safely return to the preadmission environment? Yes * Has this patient been hospitalized within the prior 30 days at any hospital? No Last DP export: 09/22/18 3:14 p Patient Name: LELA RIVERA Page [id number] at 1020 All edits/amendments must be made on the electronic document DICTATION DATE: 09/28/18 1019 ROOF BOLTER HELPER: FRANCISCA 09/28/18 1019 RPT#: [id number] DC DATE: STATUS: ADM IN [facility] [address] [place] [address] END OF REPORT
[2018-09-28 13:19] LABS: CKMB 0.9 U/L (0.0-3.6); CREATINE KINASE 133 UL (21-215)
--- NOTE | 2018-09-28 14:26 | NUR ---
DR. SCHWARZ AT BEDSIDE FOR ASSESMSENT - REQUESTED ARTLINE TO BE REMOVED IF MD APPROVES - WILL F/U WITH
--- NOTE | 2018-09-28 14:27 | NUR ---
DR. SCHWARZ D/C CONTACT [facility]
--- NOTE | 2018-09-28 14:29 | NUR ---
PAGED DR. MOORE TO DISCUSS REMOVAL OF ARTLINE RECOMMENDATIONS - AWAITING CALL BACK
[2018-09-28 14:56] LABS: CHOL - HDL RATIO 5.5 ratio (2.3-4.1); LDL-HDL RATIO 2.3 ratio (1.5-3.5)
--- NOTE | 2018-09-28 15:00 | NUR ---
ASSESSMENT COMPLETE - NO JOSRE JACK
--- NOTE | 2018-09-28 16:00 | NUR ---
I&O COMPLETE - BATHED PATIENT - CHANGED LINENS - DECREASED PROPROFOL PER DR. MOORE DIRECTED - CALLED LAB ASKED FOR CHOLESTEROL RESULTS - WILL NOTIFY
--- NOTE | 2018-09-28 17:00 | NUR ---
NOTIFIED DR. MOORE OF TRIG 335. ;O[OD 169, HDL 31, LDL 71 - DR. MOORE SAID TO D/C PROPROFOL AND CONFIRMED TO GIVE VERSED Q2 HOURS PRN FOR PAIN
--- NOTE | 2018-09-28 18:30 | NUR ---
DR. MOORE UPDATED - NO NEW ORDERS
--- NOTE | 2018-09-28 19:07 | NUR ---
BEDSIDE SHIFT REPORT GIVEN BY DEPARTING RN. SEDATED ON VENT AND RESTRAINED. SEE FLOWSHEET FOR FULL ASSESSMENT. RT IJ CENTRAL LINE PATENT AND INFUSING MD ORDERED MEDS. F/C DRAINING TO GRAVITY. HEELS FLOATED. REPOSITIONED FOR COMFORT. ORAL CARE PROVIDED. SAFETY MEASURES IN PLACE. CBIR.
--- NOTE | 2018-09-28 19:40 | NUR ---
PAGED DR. MOORE. RETURNED PHONE CALL IMMEDIATELY. VERIFIED MED ORDERS. UPDATED MD ON PT VS. ELEVATED HR AND BP. PT 6 ON RASHID SCALE. ORDERED TO DC PROPOFOL ORDER AND FOR VERSED PRN IVP TO BE CHANGED FROM Q2H TO Q1H. ORDERS RECIEVED, VERIFIED, AND READ BACK.
--- NOTE | 2018-09-28 20:00 | NUR ---
FAMILY AT BEDSIDE. UPDATE GIVEN. ALL QUESTIONS ANSWERED.
--- NOTE | 2018-09-28 21:12 | NUR ---
REPOSITIONED PT. ORAL CARE PROVIDED.
--- NOTE | 2018-09-28 23:44 | NUR ---
REASSESSMENT COMPLETE. NO CHANGE IN PT CONDITION. SEE MAR FOR FULL PRN DETAILS.
[2018-09-29] VITALS (24 sets, daily range): BP systolic 105–190; BP diastolic 55–101
--- NOTE | 2018-09-29 03:34 | NUR ---
REASSESSMENT COMPLETE. REPOSITIONED. ORAL CARE PROVIDED. TUBE FEEDING BAG CHANGED. SNOW CARE PERFORMED. TOLERATED OK.
[2018-09-29 04:41] LABS: BASOPHILS 0.1 % (0-2); EOSINOPHILS 0.1 % (0-7); HEMATOCRIT 27.8 % (36.0-48.0); HEMOGLOBIN 9.2 g/dL (12-16); IMMATURE GRANULOCYTES 1.1 % (0-5); LYMPHOCYTES 7.3 % (15-50); MCH 31.7 pg (26.0-34.0); MCHC 33.1 g/dL (31.0-37.0); MCV 95.9 fL (80.0-100.0); MEAN PLATELET VOLUME 10.1 fL (7.4-10.4); MONOCYTES 4.4 % (2-11); PLATELET COUNT 220 10x3/uL (130-400); WBC 14.3 10x3/uL (4.8-10.8)
[2018-09-29 05:16] LABS: ALBUMIN 2.2 g/dL (3.4-5.0); ALKALINE PHOSPHATASE 60 U/L (46-116); ALT (SGPT) 60 U/L (10-68); BILIRUBIN - TOTAL 0.58 mg/dL (0.2-1.3); CALC OSMOLALITY 300 mosm/kg (275-300); CALCIUM 7.8 mg/dL (8.5-10.1); CARBON DIOXIDE 30.2 mmol/L (21.0-32.0); CHLORIDE - SERUM 107 mmol/L (98-107); CREATININE - SERUM 0.7 mg/dL (0.6-1.3); GLUCOSE 241 mg/dL (74-106); POTASSIUM - SERUM 3.7 mmol/L (3.5-5.1); PRO BNP 1445 pg/mL (0-125); PROTEIN - SERUM 5.9 g/dL (6.4-8.2); SODIUM 144 mmol/L (136-145); UREA NITROGEN 28 mg/dL (7-18); eGFR NON AFRICAN AMERICAN > 90 mL/min (90-120)
--- NOTE | 2018-09-29 17:34 | NUR ---
0700 RECEIVED REPORT FROM OUTGOING SAMPLING EXPERT COMPLETE
--- NOTE | 2018-09-29 17:41 | NUR ---
0751 VERSED 2MG IV GIVEN TO SUPPLIMENT FENTANYL WHILE ON VENT
--- NOTE | 2018-09-29 17:43 | NUR ---
0941 FEMTANYL REMAINS CONTINIOUS INFUSION AT 500MCG/HOUR VERSED 2MG IVP GIVEN FOR ANXIETY AND RESTLESSNESS
--- NOTE | 2018-09-29 17:45 | NUR ---
1100 CONTINUE TO TURN EVERY 2 HOURS PT SEDATED AND FOLLOWS COMMANDS
--- NOTE | 2018-09-29 17:45 | NUR ---
1300 FAMILY REMAINS AT BEDSIDE EMOTIONAL SUPPORT GIVEN
--- NOTE | 2018-09-29 17:46 | NUR ---
1500 PEEP 10. TOLERATING VENT WELL
--- NOTE | 2018-09-29 17:46 | NUR ---
1323 VERSED 2MG IVP GIVEN
--- NOTE | 2018-09-29 17:47 | NUR ---
1602 VERSED 2MG IVP GIVEN CBS 268 COVERED WITH 16 UNITS.
--- NOTE | 2018-09-29 18:43 | NUR ---
1822 VERSED 2MG IV GIVEN
--- NOTE | 2018-09-29 19:16 | NUR ---
BEDSIDE SHIFT REPORT GIVEN BY DEPARTING RN. SEDATED ON VENT IN SOFT WRIST RESTRAINTS. ASSESSMENT COMPLETE. SEE FLOWSHEET FOR FULL DETAILS. REPOSITIONED FOR COMFORT. ORAL CARE PROVIDED. SAFETY MEASURES IN PLACE.
--- NOTE | 2018-09-29 19:43 | NUR ---
PRN VERSED GIVEN. PT RASHID SCALE 6. HR ELEVATED, BP ELEVATED. PT IN CLEAR DISTRESS. SEE MAR FOR DETAILS.
--- NOTE | 2018-09-29 19:51 | NUR ---
TEMP 100.7 (AX) PRN TYLENOL GIVEN PER OGT. SEE MAR FOR DETAILS
--- NOTE | 2018-09-29 20:01 | NUR ---
FAMILY AT BEDSIDE CONCERNED ABOUT PROGNOSIS. UPDATE GIVEN. ALL QUESTIONS ANSWERED.
--- NOTE | 2018-09-29 20:10 | NUR ---
PT IN DISTRESS. HR ELEVATED, BP ELEVATED. AGITATED AND PULLING AT RESTRAINTS. FENTANYL TITRATED PER HOSPITAL PROTOCOL. REPOSITIONED FOR COMFORT. ORAL CARE PROVIDED. SAFETY MEASURES IN PLACE. CBIR.
--- NOTE | 2018-09-29 23:08 | NUR ---
REASSESSMENT COMPLETE. NO CHANGES IN PT CONDITION. NO SS OF DISTRESS.
[2018-09-30] VITALS (24 sets, daily range): BP systolic 107–181; BP diastolic 56–99
--- NOTE | 2018-09-30 00:51 | NUR ---
TEMP 101.3 (AX). PRN TYLENOL GIVEN. SEE MAR FOR DETAILS. REPOSITIONED FOR COMFORT. ORAL CARE PROVIDED.
--- NOTE | 2018-09-30 02:00 | NUR ---
TUBE FEEDING BAGS CHANGED PER HOSPITAL PROTOCOL. CENTRAL LINE DRESSING CHANGED USING STERILE PROCEDURE. TOLERATED WELL.
--- NOTE | 2018-09-30 03:18 | NUR ---
REASSESSMENT COMPLETE. NO CHANGES NOTED. AX TEMP 100.2. REPOSITIONED FOR COMFORT. ORAL CARE PROVIDED. CBIR.
--- NOTE | 2018-09-30 04:14 | NUR ---
PRN VERSED GIVEN. PT ANXIOUS AND REACHING FOR LINES. HR AND BP ELEVATED. SEE MAR FOR FULL DETAILS. COMPLETE BED BATH GIVEN. LINENS CHANGED. RT ARM PIT NOTICIBLY RED AND ESCORIATED. WILL REPORT TO ONCIMING SHIFT.
[2018-09-30 05:30] LABS: BASOPHILS 0.1 % (0-2); EOSINOPHILS 0 % (0-7); HEMATOCRIT 24.3 % (36.0-48.0); HEMOGLOBIN 8.1 g/dL (12-16); IMMATURE GRANULOCYTES 0.8 % (0-5); LYMPHOCYTES 10.6 % (15-50); MCH 31.8 pg (26.0-34.0); MCHC 33.3 g/dL (31.0-37.0); MCV 95.3 fL (80.0-100.0); MEAN PLATELET VOLUME 10.4 fL (7.4-10.4); MONOCYTES 5.6 % (2-11); NEUTROPHILS 82.9 % (40-80); PLATELET COUNT 219 10x3/uL (130-400); RBC 2.55 10x6/uL (4.00-5.40); RDW 13.3 % (11.5-14.5); WBC 14.4 10x3/uL (4.8-10.8)
--- NOTE | 2018-09-30 05:33 | NUR ---
PRN VERSED GIVEN. RASHID SCALE OF 6. SEE MAR FOR DETAILS.
[2018-09-30 05:54] LABS: CALC OSMOLALITY 296 mosm/kg (275-300); CALCIUM 8.1 mg/dL (8.5-10.1); CARBON DIOXIDE 30.2 mmol/L (21.0-32.0); CHLORIDE - SERUM 106 mmol/L (98-107); CREATININE - SERUM 0.7 mg/dL (0.6-1.3); POTASSIUM - SERUM 3.5 mmol/L (3.5-5.1); PRO BNP 1540 pg/mL (0-125); SODIUM 144 mmol/L (136-145); UREA NITROGEN 30 mg/dL (7-18); eGFR NON AFRICAN AMERICAN > 90 mL/min (90-120)
[2018-09-30 06:00] LABS: GLUCOSE 173 mg/dL (74-106)
--- NOTE | 2018-09-30 07:56 | NUR ---
0735 RESTLESS B/P 180/99 HR 126 VERSED 2MG IV GIVEN
--- NOTE | 2018-09-30 10:40 | NUR ---
Nutrition follow-up: Intubated, sedated. Propofol discontinue Nepro infusing @ 35 ml/hr Labs reviewed Wt: 300# RDN will increase TF to 45 ml/hr to better meet pts estimated energy needs now that propofol discontinued. RDN following.
--- NOTE | 2018-09-30 15:15 | NUR ---
0700 [facility]
--- NOTE | 2018-09-30 15:17 | NUR ---
0735 RESTLESS AND AGITATED ELEVATED B/P AND HEART RATE
--- NOTE | 2018-09-30 15:18 | NUR ---
0936 UPDATING FAMILY MEMBERS ON PATIENTS NIGHT.
--- NOTE | 2018-09-30 15:19 | NUR ---
0935 FENTANYL INFUSING AT 600MCG/HOUR SUPPLEMENTED WITH VERSED 2MG IV
--- NOTE | 2018-09-30 15:20 | NUR ---
1100 PEEP DECREASED FROM 10 TO 9 TUBE FEEDING OF NEPRO INCREASED TO 45ML/HOUR RESIDUAL 15ML TOLERATED WELL
--- NOTE | 2018-09-30 15:23 | NUR ---
1300 FAMILY AT BEDSIDE EMOTIONAL SUPPORT PROVIDED
--- NOTE | 2018-09-30 15:24 | NUR ---
1500 CHANGED VENT SETTINGS TO SIMV AND PRESSURE SUPPORT OF 15 DECREASED FEMTANYL TO 400 MCG/HR
--- NOTE | 2018-09-30 15:26 | NUR ---
1520 RETURNED VENT TO ASSIST CONTROL WITH NO PRESSURE SUPPORT VERSED 2MG IV GIVEN AND INCREASED FENTANYL BACK UP TO 600MCG/MG TRIAL UNCUCCESSFUL RAPID HEART RATE 123, 178/99
--- NOTE | 2018-09-30 20:06 | NUR ---
PHONED DR MOORE REGARDING VERSED IVP AND FREQUENCY OF NEED. NEW MEDICATION ORDERED. SEE MAR FOR DETAILS. ORDERS RECEIVED, VERIFIED, AND READ BACK.
--- NOTE | 2018-09-30 20:12 | NUR ---
FAMILY REQUESTING PT BE PULLED UP IN BED. Marciano CLARK RN AND MYSELF PULLED PT UP IN BED. REPOSITIONED AND PILLOWS PLACED UNDER BONY PROMINENCES. TOLERATED OK. HR ELEVATED AND BP ELEVATED. FAMILY ASKING PT QUESTIONS FREQUENTLY ABOUT POSITIONING AND COMFORTABILITY. HR INCREASINGLY ELEVATING. ASKED FAMILY TO ALLOW PT TO REST AND TO HELP LOWER STIMULATION. FAMILY DEMONSTRATED NO COMPREHENSION THEY CONTINUED TO SHOWER PT WITH QUESTIONS.
--- NOTE | 2018-09-30 21:42 | NUR ---
SPOUSE REMAINS AT BEDSIDE. UPON ENTERING ROOM, PT RAISED ARM UP TO ETT TUBE. RESTRAINTS LOOSE AND HANGING OFF BED RAILS. WHEN ASKED, SPOUSE ADMITTED TO LOOSENING RESTRAINTS AFTER NURSE TIED THEM. SAID "SHE NEEDS TO BE ABLE TO MOVE HER ARMS AROUND MORE." EDUCATION PROVIDED IMMEDIATELY. DANGERS OF SELF EXTUBATION EXPLAINED IN GREAT DETAIL. RESTRAINTS IMMEDIATELY TIED AND CHECKED FOR SECURE PLACEMENT. SPOUSE PASSIVE AND UNYEILDING IN REASONING. EXPLAINED TO SPOUSE THAT HE WILL BE ESCORTED BY SECURITY IF HE INTERFERES WILL MEDICAL EQUIPMENT AND TREATMENT AGAIN. NURSE REMAINED AT BEDSIDE UNTIL VISITING HOURS ENDED.
[2018-10-01] VITALS (24 sets, daily range): BP systolic 116–179; BP diastolic 63–96
[2018-10-01 05:16] LABS: BASOPHILS 0.2 % (0-2); EOSINOPHILS 0.4 % (0-7); HEMATOCRIT 25.2 % (36.0-48.0); HEMOGLOBIN 8.2 g/dL (12-16); IMMATURE GRANULOCYTES 0.4 % (0-5); LYMPHOCYTES 10.5 % (15-50); MCH 31.4 pg (26.0-34.0); MCHC 32.5 g/dL (31.0-37.0); MCV 96.6 fL (80.0-100.0); MONOCYTES 5.5 % (2-11); PLATELET COUNT 223 10x3/uL (130-400); RBC 2.61 10x6/uL (4.00-5.40); RDW 13.7 % (11.5-14.5); WBC 11.2 10x3/uL (4.8-10.8)
[2018-10-01 05:44] LABS: ALBUMIN 2.2 g/dL (3.4-5.0); ALKALINE PHOSPHATASE 54 U/L (46-116); ALT (SGPT) 60 U/L (10-68); BILIRUBIN - TOTAL 0.63 mg/dL (0.2-1.3); CALC OSMOLALITY 301 mosm/kg (275-300); CALCIUM 8.3 mg/dL (8.5-10.1); CARBON DIOXIDE 31.2 mmol/L (21.0-32.0); CHLORIDE - SERUM 104 mmol/L (98-107); CREATININE - SERUM 0.8 mg/dL (0.6-1.3); POTASSIUM - SERUM 3.9 mmol/L (3.5-5.1); PROTEIN - SERUM 7.1 g/dL (6.4-8.2); SODIUM 144 mmol/L (136-145); UREA NITROGEN 32 mg/dL (7-18); eGFR NON AFRICAN AMERICAN 82 mL/min (90-120)
[2018-10-01 05:47] LABS: GLUCOSE 239 mg/dL (74-106)
--- NOTE | 2018-10-01 12:01 | NUR ---
0700 REPORT FROM [facility] ASSESSMENT COMPLETE SEDATED WITH CONT FENTANYL AND PRECIDEX MIGUEL WELL
--- NOTE | 2018-10-01 12:02 | NUR ---
0900 D/C FENTANYL PRECIDEX REMAINS INFUSING FAMILY REMAINS AT BEDSIDE
--- NOTE | 2018-10-01 12:03 | NUR ---
1100 SMALL LOOSE BM NOTED PATIENT AWAKE BED LINENS CHANGED
--- NOTE | 2018-10-01 12:04 | NUR ---
1142 EXTUBATED PER DANIELA RESP THERAPY PATIENT MIGUEL WELL FAMILY MEMBERS NOTIFIED
--- NOTE | 2018-10-01 12:05 | NUR ---
[address] GARCIA UPDATING FAMILY PATIENT PLACED ON BPAP AT40% TOLERATED WELL
--- NOTE | 2018-10-01 15:12 | NUR ---
1400 RESTING QUIETLY ON 40% BPAP RR 33 O2SAT 98%
--- NOTE | 2018-10-01 19:30 | NUR ---
SHIFT ASSESSMENT COMPLETE, PER NURSING FLOWSHEET, PATIENT REPOSITIONED, BIPAP REMAINS IN PLACE, PER DR. TEREAS PACK
--- NOTE | 2018-10-01 19:42 | NUR ---
1800 MOTHER REMAINS AT BEDSIDE TO KEEP PATIENT CALM
--- NOTE | 2018-10-01 20:35 | NUR ---
LAB CALLED, NOTIFIED THIS NURSE OF GRAM + COCCI IN BLOOD CULTURE THAT WAS DRAWN YESTERDAY. DR. MOORE NOTIFIED, NEW ORDER RECEIVED. MOTHER AND AT BEDSIDE, UPDATE GIVEN, QUESTIONS ANSWERED
--- NOTE | 2018-10-01 21:00 | NUR ---
COMPLETE LINEN CHANGE FOR LARGE INCONTINENT BOWEL EPISODE, GUNTER CARE PROVIDED, METICULOUS SNOW CARE PROVIDED, BARRIED CREAM APPLIED, PATIENT REPOSITIONED
--- NOTE | 2018-10-01 23:00 | NUR ---
RE-ASSESSMENT COMPLETE, PER NURSING FLOWSHEET, PATIENT SNOW AREA C/D/I, PATIENT REPOSITIONED
[2018-10-02] VITALS (24 sets, daily range): BP systolic 117–169; BP diastolic 55–88
--- NOTE | 2018-10-02 01:00 | NUR ---
PATIENT REPOSITIONED, CONTINUOUSLY TITRATING PRECEDEX FOR AGGITATION, WILL CONTINUE TO MONITOR
--- NOTE | 2018-10-02 03:00 | NUR ---
COMPLETE LINEN CHANGE FOR INCONTINENT BOWEL EPISODE, PATIENT REPOSITIONED, CONTINUE POC
--- NOTE | 2018-10-02 05:00 | NUR ---
PATIENT REPOSITIONED, CONTINUOUSLY TITRATING PRECEDEX FOR AGGITATION, NO OTHER NEEDS VOICED OR NOTED AT THIS TIME
[2018-10-02 06:04] LABS: CALC OSMOLALITY 305 mosm/kg (275-300); CALCIUM 8.3 mg/dL (8.5-10.1); CARBON DIOXIDE 32.8 mmol/L (21.0-32.0); CHLORIDE - SERUM 108 mmol/L (98-107); CREATININE - SERUM 0.7 mg/dL (0.6-1.3); GLUCOSE 234 mg/dL (74-106); LIPASE 238 U/L (73-393); POTASSIUM - SERUM 3.6 mmol/L (3.5-5.1); PRO BNP 1609 pg/mL (0-125); SODIUM 145 mmol/L (136-145); UREA NITROGEN 37 mg/dL (7-18); eGFR NON AFRICAN AMERICAN > 90 mL/min (90-120)
[2018-10-02 06:16] LABS: HEMATOCRIT 23.4 % (36.0-48.0); HEMOGLOBIN 8.2 g/dL (12-16); LYMPHOCYTES 8.7 % (15-50); MCH 33.2 pg (26.0-34.0); MCV 94.7 fL (80.0-100.0); MEAN PLATELET VOLUME 9.8 fL (7.4-10.4); NEUTROPHILS 85.8 % (40-80); PLATELET COUNT 190 10x3/uL (130-400); RBC 2.47 10x6/uL (4.00-5.40); WBC 9.6 10x3/uL (4.8-10.8)
--- NOTE | 2018-10-02 07:00 | NUR ---
PATIENT RESTING IN BED ON BIPAP FIO2 40%. 25/03. SEDATED ON PRECEDEX AT 0.8MCG. NS INFUSING AT 10ML/HR. BOTH INFUSING THROUGH RIGHT IJ CENTRAL LINE. CVP ZEROED READS 12. LUNG ARTEAGA CLEAR. VSS. BOWELS SOUNDS PRESENT. SCD'S INTACT. HEELS FLOATED. TURNED TO RIGHT SIDE WITH PANMAN NURSE. LINENS CLEAN AND DRY. WILL CONTINUE TO MONITOR.
--- NOTE | 2018-10-02 09:03 | NUR ---
CALLED PHARMACY FOR SECOND TIME TO BRING UP HUMILIN. PATIENT RESTING IN BED STABLE ON BIPAP. FAMILY IN ROOM. VSS.
--- NOTE | 2018-10-02 09:44 | NUR ---
CUT PRECEDEX SEDATION DOWN TO 0.5 IN PREPARATION FOR VAPOTHERM.
--- NOTE | 2018-10-02 10:52 | NUR ---
NUTRITION F//U PT EXTUBATED. NURSING TO ORDER SWALLOW EVAL FOR TODAY. PT STATES SHE IS WANTING TO GO HOME. WILL PROVIDE DIET PER SPEECH REC'S, MONITOR PO INTAKE. RD FOLLOWING
--- NOTE | 2018-10-02 13:00 | NUR ---
PATIENT RESTING IN BED ON VAPOTHERM MILDLY SEDATED WITH PRECEDEX INFUSING AT 0.5MCG/KG/MIN. O2 SAT ABOVE 95%. FAMILY IN ROOM. ALLOWING ICE CHIPS TILL SWALLOW EVALUATION.
--- NOTE | 2018-10-02 15:00 | NUR ---
PATIENT RESTING IN C STABLE VS ON VAPOTHERM. MILDLY SEDATED WITH PRECEDEX AT O.4MCG. WILL CONTINUE TO MONITOR
--- NOTE | 2018-10-02 16:21 | NUR ---
PULLED UP PATIENT IN BED AND TURNED TO LEFT SIDE. LINENS CLEAN AND DRY.
--- NOTE | 2018-10-02 16:58 | NUR ---
SERVED DINNER TRAY. RAISED HEAD OF BED HIGH IT WILL GO. FAMILY IS GOING TO ASSIST PATIENT EAT. INSTRUCTED TO GIVE PLENTY OF TIME TO CHEW AND ALLOW FOR SIPS OF TEA BETWEEN BITES.
--- NOTE | 2018-10-02 18:00 | NUR ---
CHANGED ALL PATIENT LINENS, PULLED UP IN BED AND TURNED TO RIGHT SIDE. VSS. WILL CONTINUE TO MONITOR. REDNESS ON BUTTOCK NO LONGER VISIBLE.
--- NOTE | 2018-10-02 19:30 | NUR ---
SHIFT ASSESSMENT COMPLETE, PATIENT REPOSITIONED, CONTINUES ON VASSOTHERM AT 40%, VSS, C/. IN REACH
--- NOTE | 2018-10-02 21:00 | NUR ---
PATIENT REPOSITIONED, MOTHER & AT BEDSIDE, UPDATE GIVEN, QUESTIONS ANSWERED
--- NOTE | 2018-10-02 23:00 | NUR ---
RE-ASSESSMENT COMPLETE, PER NURSING FLOWSHEET, BIPAP PLACED, VSS, CONTINUE POC
[2018-10-03] VITALS (24 sets, daily range): BP systolic 125–148; BP diastolic 63–85
--- NOTE | 2018-10-03 01:00 | NUR ---
PATIENT REPOSITIONED, GUNTER CARE PROVIDED, NO OTHER NEED COMMUNICATED OR NOTED AT THIS TIME, C/L IN REACH
--- NOTE | 2018-10-03 03:00 | NUR ---
RE-ASSESSMENT COMPLETE, PER NURSING FLOWSHEET, PATIENT REPOSITIONED, ORAL CARE PROVIDED, LEFT HEEL FLOATED
--- NOTE | 2018-10-03 05:00 | NUR ---
PATIENT REPOSITIONED, EASILY FALLS BACK TO SLEEP, IS ON VASOTHERM AT 40%, VSS, WILL CONTINUE TO MONITOR
[2018-10-03 07:21] LABS: ALKALINE PHOSPHATASE 47 U/L (46-116); ALT (SGPT) 50 U/L (10-68); BILIRUBIN - TOTAL 0.67 mg/dL (0.2-1.3); CALC OSMOLALITY 294 mosm/kg (275-300); CARBON DIOXIDE 27.2 mmol/L (21.0-32.0); CHLORIDE - SERUM 105 mmol/L (98-107); CREATININE - SERUM 0.7 mg/dL (0.6-1.3); POTASSIUM - SERUM 3.1 mmol/L (3.5-5.1); PROTEIN - SERUM 6.5 g/dL (6.4-8.2); SODIUM 142 mmol/L (136-145); UREA NITROGEN 34 mg/dL (7-18); eGFR NON AFRICAN AMERICAN > 90 mL/min (90-120)
[2018-10-03 07:22] LABS: GLUCOSE 173 mg/dL (74-106)
[2018-10-03 08:04] LABS: BASOPHILS 0.1 % (0-2); HEMATOCRIT 25.8 % (36.0-48.0); HEMOGLOBIN 8.7 g/dL (12-16); IMMATURE GRANULOCYTES 0.3 % (0-5); LYMPHOCYTES 8.4 % (15-50); MCH 31.9 pg (26.0-34.0); MCHC 33.7 g/dL (31.0-37.0); MCV 94.5 fL (80.0-100.0); MEAN PLATELET VOLUME 9.6 fL (7.4-10.4); NEUTROPHILS 85.2 % (40-80); PLATELET COUNT 198 10x3/uL (130-400); RBC 2.73 10x6/uL (4.00-5.40); RDW 13.7 % (11.5-14.5); WBC 9.6 10x3/uL (4.8-10.8)
--- NOTE | 2018-10-03 09:00 | NUR ---
DR TERESA FORD NEW ORDERS RECEIVED
--- NOTE | 2018-10-03 09:00 | NUR ---
DR TERESA FORD NEW ORDERS RECEIVED
--- NOTE | 2018-10-03 09:45 | NUR ---
COMPLETE BED BATH GIVEN AND LINEN CHANGE. PT HAD SMALL SMEAR OF LIQUID BROWN STOOL. NO REDNESS OR BREAKDOWN OF SKIN NOTED TO BUTTOCKS.
--- NOTE | 2018-10-03 11:00 | NUR ---
REASSESSMENT MADE NO CHANGES SEE FLOWSHEET. DENIES PAIN OR DISCOMFORT AT THIS TIME
--- NOTE | 2018-10-03 11:55 | NUR ---
TROUGH LEVEL HIGH PER LAB. DUE TO THIS AM LABS HAVING TO BE REDRAWN. SENDING ANOTHER SAMPLE AFTER FLUSHING BROWN PORT WITH 10 CC NORMAL SALINE AND WASTING 20 CC TO MAKE SURE LEVEL
--- NOTE | 2018-10-03 12:00 | NUR ---
PTS AND MOTHER HERE FOR VISITATION
--- NOTE | 2018-10-03 12:30 | NUR ---
DR MOORE BACK CHECKING ON DIURESIS POST LASIX. INFORMED URINE CLEAR AND ABOUT 400-500 IN GUNTER BAG. ALSO ASKED AGAIN ABOUT POTASSIUM DUE TO IT BEING 3.1 THIS AM AND THEN WITH LASIX WANTED TO REPLACE NEW ORDERS NOTED.
--- NOTE | 2018-10-03 12:45 | NUR ---
SPOKE WITH ANN MARIE IN PHARMACY INFORMED OF VANC RETEST JUST TO CONFIRM LEVEL. SHE STATED OK JUST TO HOLD VANC DOSE WILL DECIDE AFTER RECEIVING RESULT
--- NOTE | 2018-10-03 13:20 | NUR ---
VANC TROUGH RESULT AT 1155 WAS 17.1 CALLED AND SPOKE WITH ANN MARIE IN PHARMACY ABOUT VANC DOSING, SINCE THE PREVIOUS RESULT WAS HIGH AT 21.8. PER ANN MARIE IN PHARMACY GIVE THE 1100 DOSE
--- NOTE | 2018-10-03 15:00 | NUR ---
REASSESSMENT MADE REPOSITIONED PT DENIES PAIN OR DISCOMFORT VSS
--- NOTE | 2018-10-03 15:15 | NUR ---
ATTEMPT TO GET PIV UNSUCCESSFUL TIMES 2. BOTH GOT BLOOD RETURN THEN VEIN BLEW.
--- NOTE | 2018-10-03 16:00 | NUR ---
PTS AND MOTHER HERE FOR VISITATION
--- NOTE | 2018-10-03 16:30 | NUR ---
DR MOORE HERE ASKING ABOUT URINE OUTPUT POST LASIX INFORMED OF 2200 OUT ON THIS SHIFT. ALSO INFORMED OF ATTEMPT TO GET PIV UNSUCCESSFUL HE SAID MAKE SURE VASCULAR NURSE PLACES PICC FIRST THING FRIDAY MORNING OR SOONER IF POSSIBLE.
--- NOTE | 2018-10-03 17:06 | NUR ---
NEEMA RESP THERAPIST DECREASING VAPOTHERM 30/[address] TERESA PACK
--- NOTE | 2018-10-03 18:00 | NUR ---
PT DOING WELL WITH DECREASE OF VAPOTHERM TO 30 O2 SAT 97% PRECEDEX STILL AT 0.4MCG NO DISTRESS OR DISCOMFORT VSS
--- NOTE | 2018-10-03 19:30 | NUR ---
SHIFT ASSESSMENT COMPLETE, PER NURSING FLOWSHEET, PATIENT REPOSITONED, NO OTHER NEEDS VOICED OR NOTED AT THIS TIME
--- NOTE | 2018-10-03 21:00 | NUR ---
PATIENT REPOSITIONED, MOTHER AND AT BEDSIDE, UPDATE GIVEN, QUESTIONS ANSWERED, CONTINUE POC
--- NOTE | 2018-10-03 23:00 | NUR ---
RE-ASSESSMENT COMPLETE, PER NURSING FLOWSHEET, PATIENT REPOSITIONED, ASSISTED WITH ORAL CARE, VSS, WILL CONTINUE TO MONITOR
[2018-10-04] VITALS (24 sets, daily range): BP systolic 114–151; BP diastolic 51–91
--- NOTE | 2018-10-04 01:00 | NUR ---
PATIENT REPOSITIONED, GUNTER CARE PROVIDED, CONTINUE POC
--- NOTE | 2018-10-04 03:00 | NUR ---
RE-ASSESSMENT COMPLETE, PER NURSING FLOWSHEET, PATIENT REPOSITIONED, BIPAP MASK IN PLACE, MONITORING PATIENT BRADYCARDIA, C/L IN REACH
--- NOTE | 2018-10-04 05:00 | NUR ---
PATIENT REPOSITIONED, ASSISTED WITH ORAL CARE, DRINK PROVIDED, PARTIAL LINEN CHANGE, NO OTHER NEEDS VOICED OR NOTED, C/L IN REACH
[2018-10-04 06:11] LABS: ALBUMIN 2.1 g/dL (3.4-5.0); ALKALINE PHOSPHATASE 50 U/L (46-116); ALT (SGPT) 52 U/L (10-68); BILIRUBIN - TOTAL 0.57 mg/dL (0.2-1.3); CALC OSMOLALITY 286 mosm/kg (275-300); CALCIUM 8.1 mg/dL (8.5-10.1); CARBON DIOXIDE 27.6 mmol/L (21.0-32.0); CHLORIDE - SERUM 104 mmol/L (98-107); CREATININE - SERUM 0.6 mg/dL (0.6-1.3); GLUCOSE 172 mg/dL (74-106); MAGNESIUM - SERUM 2.2 mg/dL (1.8-2.4); PHOSPHOROUS 3.7 mg/dL (2.5-4.9); PROTEIN - SERUM 6.4 g/dL (6.4-8.2); SODIUM 139 mmol/L (136-145); UREA NITROGEN 26 mg/dL (7-18); eGFR NON AFRICAN AMERICAN > 90 mL/min (90-120)
[2018-10-04 06:12] LABS: POTASSIUM - SERUM 3.8 mmol/L (3.5-5.1)
[2018-10-04 06:34] LABS: BASOPHILS 0.2 % (0-2); EOSINOPHILS 0.8 % (0-7); HEMATOCRIT 21.7 % (36.0-48.0); IMMATURE GRANULOCYTES 0.3 % (0-5); LYMPHOCYTES 12.9 % (15-50); MCH 31.3 pg (26.0-34.0); MCHC 33.2 g/dL (31.0-37.0); MCV 94.3 fL (80.0-100.0); MEAN PLATELET VOLUME 10.2 fL (7.4-10.4); MONOCYTES 4.1 % (2-11); NEUTROPHILS 81.7 % (40-80); PLATELET COUNT 237 10x3/uL (130-400); RDW 13.7 % (11.5-14.5); WBC 8.7 10x3/uL (4.8-10.8)
[2018-10-04 06:36] LABS: HEMOGLOBIN 7.2 g/dL (12-16)
--- NOTE | 2018-10-04 07:00 | NUR ---
REPORT RECEIVED. SHIFT ASSESSMENT COMPLETE. PT ON BUILDING MECHANIC WITH ALARMS ON AND AUDIBLE READING SB RATE OF 45 UP TO SR NO ECTOPIC BEATS NOTED AT THIS TIME. BED IN LOW POSITION SIDE RAILS UP X3 CALL LIGHT IN REACH. PRECEDEX INFUSING AT 0.4 MCG. SLEEPING BUT AROUSES EASILY, ORIENTED X4 FOLLOWS COMMANDS WITH EQUAL STRENGTH AND STRONGER THAN YESTERDAY.
--- NOTE | 2018-10-04 07:25 | NUR ---
Alexandr PAGED WITH CRITICAL LAB, AWAITING CALL BACK
--- NOTE | 2018-10-04 07:40 | NUR ---
Alexandr PAGED WITH CRITICAL LAB, AWAITING CALL BACK
--- NOTE | 2018-10-04 07:49 | NUR ---
DR. SORTO RETURNED PAGED REGARDING CRITICAL HEMOGLOBIN. Alexandr REQUESTED A LAB RE-CHECK USING PIV, TO ENSURE ACCURACY. Alexandr STATES IF LAB RE-CHECK YIELDS SAME RESULTS TO INFUSE 2 UNITS OF PRBC, DAY SHIFT RN NOTIFIED OF Alexandr PLAN
--- NOTE | 2018-10-04 08:15 | NUR ---
PTS MOTHER HERE FOR VISITATION
--- NOTE | 2018-10-04 08:30 | NUR ---
MOORE HERE FOR ROUNDS. PRECEDEX DECREASED TO 0.2 MCG PER MOORE ORDER
--- NOTE | 2018-10-04 09:15 | NUR ---
LAB HERE TO REDRAW AM LABS WITH PERIPHERAL STICK DUE TO RESULTS. ATTEMPTS TO DRAW BLOOD UNSUCCESSFUL.
[2018-10-04 09:27] LABS: BASOPHILS 0.1 % (0-2); EOSINOPHILS 0.3 % (0-7); IMMATURE GRANULOCYTES 0.3 % (0-5); LYMPHOCYTES 9.3 % (15-50); MCH 31.3 pg (26.0-34.0); MCHC 33.3 g/dL (31.0-37.0); MCV 93.8 fL (80.0-100.0); MEAN PLATELET VOLUME 9.7 fL (7.4-10.4); MONOCYTES 3.9 % (2-11); NEUTROPHILS 86.1 % (40-80); PLATELET COUNT 224 10x3/uL (130-400); RDW 13.6 % (11.5-14.5)
[2018-10-04 09:29] LABS: HEMATOCRIT 27.3 % (36.0-48.0); HEMOGLOBIN 9.1 g/dL (12-16); RBC 2.91 10x6/uL (4.00-5.40)
--- NOTE | 2018-10-04 09:45 | NUR ---
PT REQUESTING BED FRANKLIN FOR BM. LARGE LIQUID BROWN STOOL COMPLETE BED BATH AND LINEN CHANGE.
--- NOTE | 2018-10-04 12:00 | NUR ---
PTS MOM HERE FOR VISITATION UPDATE GIVEN. PT AND MOTHER WANT TO HOLD OFF ON STARTING SEROQUEL AND WISH TO SPEAK TO DR MOORE ABOUT STARTING SOMETHING PRN IF NEED ARISES AFTER PRECEDEX DISCONTINUED. PT DOES NOT WANT TO FEEL DROWSY
--- NOTE | 2018-10-04 13:45 | NUR ---
DR MOORE AT BEDSIDE UPDATING PT AND PTS MOTHER. THEY SPOKE AT LENGTH AFTER TALKING PT AND MOTHER ABOUT BIPAP AND THE MEDICATION THEY WERE CONCERNED ABOUT FOR ANXIETY.
--- NOTE | 2018-10-04 14:20 | NUR ---
PT HERE PT UP TO CHAIR WEAK BUT ABLE TO HOLD WEIGHT SHORT PERIOD OF TIME
--- NOTE | 2018-10-04 15:10 | NUR ---
PT REALLY TIRED WANTS BACK IN BED SHE STATES HER MOM WORE HER OUT WASHING HER HAIR WHILE UP TO CHAIR. MOM REMAINS AT BEDSIDE CALL LIGHT IN REACH VSS
--- NOTE | 2018-10-04 16:00 | NUR ---
MOM HERE FOR VISITATION
--- NOTE | 2018-10-04 17:20 | NUR ---
TYLENOL GIVEN FOR HEADACHE AND LOW GRADE FEVER
--- NOTE | 2018-10-04 18:00 | NUR ---
PT C/O HAVING GAS WITH ABD DISCOMFORT MID EPIGASTRIC REGION
--- NOTE | 2018-10-04 18:45 | NUR ---
PT STATES SHE JUST PASSED ALOT OF GAS AND HAD SOME RELIEF OF ABD PAIN
--- NOTE | 2018-10-04 19:30 | NUR ---
SHIFT ASSESSMENT COMPLETE NURSING FLOWSHEET, PATIENT REPOSITIONED, ASSISTED IN ORAL CARE, PATIENT REPOSITIONED, CONTINUE POC
--- NOTE | 2018-10-04 21:00 | NUR ---
PATIENT REPOSITIONED, MOTHER AND AT BEDSIDE, UPDATE GIVEN, QUESTIONS ANSWERED
[2018-10-04 21:41] LABS: APPEARANCE CLEAR (CLEAR); COLOR YELLOW (YELLOW); GLUCOSE NEGATIVE (NEGATIVE); NITRITE NEGATIVE (NEGATIVE); PROTEIN NEGATIVE (NEGATIVE); SPECIFIC GRAVITY 1.015 (1.005-1.020)
[2018-10-04 21:42] LABS: BILIRUBIN NEGATIVE (NEGATIVE); KETONE SMALL mg/dL (NEGATIVE); UROBILINOGEN NORMAL (NORMAL)
--- NOTE | 2018-10-04 23:00 | NUR ---
RE-ASSESSMENT COMPLETE, PATIENT REPOSITIONED, NO OTHER NEED VOICED OR NOTED, C/L IN REACH
[2018-10-05] VITALS (13 sets, daily range): BP systolic 108–175; BP diastolic 73–90
--- NOTE | 2018-10-05 01:00 | NUR ---
PATIENT REPOSITIONED, GUNTER CARE PROVIDED, VSS, CONTINUE POC
--- NOTE | 2018-10-05 03:00 | NUR ---
RE-ASSESSMENT COMPLETE, PER NURSING FLOWSHEET, PATIENT REPOSITONED, DRINK PROVIDED, WILL CONTINUE POC
--- NOTE | 2018-10-05 05:00 | NUR ---
COMPLETE LINEN CHANGE. PATIENT HAD MEDIUM SOFT BM ON BED FRANKLIN, SNOW CARE PROVIDED, VSS
[2018-10-05 05:55] LABS: BASOPHILS 0.1 % (0-2); EOSINOPHILS 0.2 % (0-7); HEMATOCRIT 25.8 % (36.0-48.0); HEMOGLOBIN 8.9 g/dL (12-16); IMMATURE GRANULOCYTES 0.3 % (0-5); LYMPHOCYTES 9.9 % (15-50); MCH 32.1 pg (26.0-34.0); MCHC 34.5 g/dL (31.0-37.0); MCV 93.1 fL (80.0-100.0); MEAN PLATELET VOLUME 9.6 fL (7.4-10.4); NEUTROPHILS 86.5 % (40-80); RBC 2.77 10x6/uL (4.00-5.40); RDW 14.2 % (11.5-14.5); WBC 9.2 10x3/uL (4.8-10.8)
[2018-10-05 06:00] LABS: PLATELET COUNT 284 10x3/uL (130-400)
[2018-10-05 06:09] LABS: ALBUMIN 2.1 g/dL (3.4-5.0); ALKALINE PHOSPHATASE 62 U/L (46-116); BILIRUBIN - TOTAL 0.84 mg/dL (0.2-1.3); CALCIUM 7.9 mg/dL (8.5-10.1); CARBON DIOXIDE 25.1 mmol/L (21.0-32.0); CHLORIDE - SERUM 102 mmol/L (98-107); CREATININE - SERUM 0.6 mg/dL (0.6-1.3); GLUCOSE 170 mg/dL (74-106); MAGNESIUM - SERUM 1.9 mg/dL (1.8-2.4); PHOSPHOROUS 3.7 mg/dL (2.5-4.9); POTASSIUM - SERUM 3.7 mmol/L (3.5-5.1); PROTEIN - SERUM 6.5 g/dL (6.4-8.2); SODIUM 137 mmol/L (136-145); eGFR NON AFRICAN AMERICAN > 90 mL/min (90-120)
[2018-10-05 06:10] LABS: ALT (SGPT) 82 U/L (10-68); CALC OSMOLALITY 279 mosm/kg (275-300); UREA NITROGEN 19 mg/dL (7-18)
--- NOTE | 2018-10-05 07:50 | NUR ---
REPORT RECEIVED INITIAL ASSESSMENT COMPLETE. PT AWAKE ALERT AND ORIENTED. VINER OPERATOR READING SR WITHOUT ECTOPY ALARMS ON AND AUDIBLE. PT STATES ABD PAIN A LITTLE BETTER THIS AM. BED IN LOW POSITION SIDE RAILS UP TIMES 3 CALL LIGHT IN REACH VSS NO DISTRESS NOTED AT THIS TIME. BREAKFAST TRAY HERE PT SITTING UP IN BED BUT STATES SHE IS NOT VERY HUNGRY
--- NOTE | 2018-10-05 08:00 | NUR ---
PTS MOTHER AND HERE FOR VISITATION UPDATE GIVEN BY RAJIV GREENFIELD NURSE.
--- NOTE | 2018-10-05 09:04 | NUR ---
Nutrition follow-up: Diet: Regular mechanical soft with thin liquids PO intake ~25% of meals Labs reviewed Wt: 277# +BM, liquid BIPAP PRN Pt not meeting estimated energy needs with current po intake. May need to consider nutrition support short-term. RDN following.
--- NOTE | 2018-10-05 09:45 | NUR ---
VASCULAR ACCESS NURSE HERE SPEAKING WITH PT AND HER MOTHER AND ABOUT IV ACCESS.
--- NOTE | 2018-10-05 10:15 | NUR ---
MARIAM WELCH VASCULAR NURSE PLACED MIDLINE TO RIGHT UPPER ARM
--- NOTE | 2018-10-05 10:30 | NUR ---
PT REQUESTING BED FRANKLIN SMALL SEMILIQUID BROWN STOOL PARTIAL BED BATH AND LINEN CHANGE
--- NOTE | 2018-10-05 10:45 | NUR ---
RIGHT IJ CENTRAL LINE D/C'D. NO BLEEDING NOTED 4X4 GAUZE TAPE DRESSING APPLIED
--- NOTE | 2018-10-05 11:00 | NUR ---
DR CANNON AND MACARIO STATED OK TO TRANSFER TO FLOOR.
--- NOTE | 2018-10-05 11:00 | NUR ---
DR MACARIO SILVA
--- NOTE | 2018-10-05 11:15 | NUR ---
DR DAVIS SILVA
--- NOTE | 2018-10-05 11:30 | NUR ---
DR DEJESUS HERE INFORMED OF FLUSHING AND INCREASED HEART RATE SHE WAS GOING D/C THE VANC TODAY ANYWAY SO VANC DISCONTINUED.
--- NOTE | 2018-10-05 12:00 | NUR ---
FAMILY HERE FOR VISITATION
--- NOTE | 2018-10-05 12:15 | NUR ---
PT REQUESTING BED FRANKLIN ABLE TO TURN SELF MUCH STRONGER TODAY
--- NOTE | 2018-10-05 14:00 | NUR ---
PT REQUESTING BED FRANKLIN SMALL SEMI FORMED STOOL PARTIAL BED BATH GIVEN
--- NOTE | 2018-10-05 14:15 | NUR ---
PHYSICAL THERAPY HERE TO GET PT UP TO CHAIR.
--- NOTE | 2018-10-05 15:15 | NUR ---
REPORT GIVEN TO MELA COHEN NURSE TAKING PATIENT TO ROOM 3655.
--- NOTE | 2018-10-05 15:20 | NUR ---
PT STILL UP IN CHAIR. TRANSFERRED TO WHEELCHAIR AND TRANSFERRED TO ROOM 6272. ASSISSTED TO BED SIDE RAILS UP TIMES 3, CALL LIGHT IN REACH, PT ON O2 2 LPM
--- NOTE | 2018-10-05 15:46 | NUR ---
PT ARRIVED VIA W/C FROM ICU. PT IS A&O ASSISTED WITH MAX ASSIST INTO BED. RESPIRATORY SETTING UP THEIR BIPAP AND EQUIPMENT. RR NONLABORED AT THIS TIME WITH NC @2L IN PLACE. TELEMETRY APPLIED ORDERED. PT VERBALIZED UNDERSTANDING OF OUR UNIT AND HOW TO CALL FOR ASSISTANCE IF NEEDED. CL IN REACH, BED IN LOWEST, SIDE RAILS X2. WILL CTM.
--- NOTE | 2018-10-05 19:15 | NUR ---
ALERT/AWAKE DENIES PAIN OR ANY NEEDS. ORIENTED X4. HAS 02 AT 2L/NC. RR 22 EVEN U/L. MIDLINE IV IN RT UA INTACT SL. TELEMETRY SHOWS 98 SR. GUNTER DRAINING EVELIO COLORED URINE. HER MOTHER IS PRESENT IN ROOM. ORIENTED TO CALL LIGHT FOR ANY NEEDS.
--- NOTE | 2018-10-05 21:05 | NUR ---
ADMIN SCHED MEDS. REFUSED SEROQUEL. CHECKED BS AT 214, ADMIN LANTUS 20 UNITS. ASSISTED WITH REPOSITIONING TO RIGHT SIDE WITH ORTO PILLOW WEDGES TO HER BACK. NO OTHER NEEDS VOICED.
[2018-10-06] VITALS: BP 147/95
--- NOTE | 2018-10-06 00:30 | NUR ---
DISPLAY ASSOCIATE PRESENT IN ROOM TAKING VS. DENIES ANY NEEDS. FAMILY MEMBER SLEEPING IN RECLINER.
[2018-10-06 04:00] VITALS: BP 146/85
[2018-10-06 05:26] LABS: BASOPHILS 0.1 % (0-2); EOSINOPHILS 0.5 % (0-7); HEMOGLOBIN 9.5 g/dL (12-16); IMMATURE GRANULOCYTES 0.7 % (0-5); LYMPHOCYTES 13.1 % (15-50); MCH 31.9 pg (26.0-34.0); MCHC 33.9 g/dL (31.0-37.0); MEAN PLATELET VOLUME 10.1 fL (7.4-10.4); NEUTROPHILS 80.6 % (40-80); PLATELET COUNT 289 10x3/uL (130-400); RBC 2.98 10x6/uL (4.00-5.40); RDW 14.4 % (11.5-14.5); WBC 9.4 10x3/uL (4.8-10.8)
[2018-10-06 05:57] LABS: CALC OSMOLALITY 280 mosm/kg (275-300); CALCIUM 8.4 mg/dL (8.5-10.1); CARBON DIOXIDE 25.2 mmol/L (21.0-32.0); CHLORIDE - SERUM 103 mmol/L (98-107); CREATININE - SERUM 0.6 mg/dL (0.6-1.3); GLUCOSE 185 mg/dL (74-106); MAGNESIUM - SERUM 2.2 mg/dL (1.8-2.4); POTASSIUM - SERUM 4.1 mmol/L (3.5-5.1); SODIUM 137 mmol/L (136-145); UREA NITROGEN 17 mg/dL (7-18); eGFR NON AFRICAN AMERICAN > 90 mL/min (90-120)
--- NOTE | 2018-10-06 06:35 | NUR ---
ADMIN 8 UNITS OF HUMULIN R FOR BS 185. EMPTIED GUNTER 650 CC.
--- NOTE | 2018-10-06 08:37 | NUR ---
PT ASSISTED ONTO AND OFF BEDPAN, ON C/O GAS. PT CLEANED AND ASSISTED UP IN BED. PROPPED UP ON WEDGE TO L SIDE.
--- NOTE | 2018-10-06 08:57 | NUR ---
PT SITTING UP IN BED DRINKING NEPRO. VITALS STABLE. TOOK MEDS WITHOUT DIFFICULTY. REFUSED SEROQUEL. NO FURTHER CONCERNS AT THIS TIME. BED LOWERED AND LOCKED. CL IN REACH. GUNTER IN PLACE. WILL CPOC.
[2018-10-06 09:06] VITALS: BP 141/86
--- NOTE | 2018-10-06 11:18 | CN ---
PATIENT NAME:LELA RIVERA MEDICAL RECORD: [id number] : 73 LOCATION:D. D.2137 ADMIT DATE: 09/19/18 ACCOUNT: [id number] CONSULTING PHYSICIAN: MACEY WASHINGTON MD REFERRING PHYSICIAN: ROYAL SCHWARTZ MD DATE OF CONSULTATION: 09/28/2018 CARDIOLOGY CONSULTATION DATE OF SERVICE: 09/28/2018 DIAGNOSES: 1. Nonsustained ventricular tachycardia. 2. Respiratory failure. 3. Chronic obstructive pulmonary disease. 4. Pneumonia. 5. Anemia. HISTORY OF PRESENT ILLNESS: Ms. Rivera presents to [facility] with respiratory failure, found to have pneumonia as well as flu, was transferred here, has been intubated. She had an episode of nonsustained ventricular tachycardia. She has had an echocardiogram, this was overall normal. She had troponins, this was normal. Her EKG is with no ST-T changes. PHYSICAL EXAMINATION: GENERAL APPEARANCE: Well-nourished, well-developed, appears stated age. Level of distress, comfortable. PSYCHIATRIC: Mental status, alert, normal affect. Orientation, oriented to time, place and person. EYES: Lids and conjunctiva, noninjected. No discharge, no pallor. ENT: Lips, teeth, gums, normal dentition. Oropharynx, no cyanosis, no pallor. NECK: Carotid arteries, bilateral normal upstroke, no bruits, no thrills. JUGULAR VEINS: No jugular venous pressure or distention. CERVICAL LYMPH NODES: Nontender, nonenlarged. THYROID: Not enlarged. Nontender. No nodules. LUNGS: Respiratory effort, unlabored. CHEST: Normal curvature. No thoracic deformity. No chest wall tenderness. Percussion, resonant. Auscultation, clear. No wheezes, no rales, no rhonchi. CARDIOVASCULAR: Precordial exam, nondisplaced. No heaves or pericardial thrills. Rate and rhythm, regular. Heart sounds, normal S1, normal S2. No S3, no gallop, no rub. Systolic murmur, not heard. Diastolic murmur, not heard. EXTREMITIES: No cyanosis, no edema. Peripheral pulses, full and equal in all extremities, except as noted. No bruits appreciated. ABDOMEN: Soft, nondistended. Normal aorta. No bruit. Nontender. No masses. Liver, nontender, no hepatomegaly. Spleen, nontender, no splenomegaly. MUSCULOSKELETAL: No joint tenderness. No joint swelling. No erythema. NEUROLOGICAL: Normal gait, normal strength, normal tone. SKIN: Warm and dry. OVERALL IMPRESSION: Nonsustained ventricular tachycardia. At this time, we will start her on Lopressor as she is hypertensive and tachycardic, 25 mg down her OG tube b.i.d. No other cardiac workup or treatment is necessary. TRANSINT:[id number] Voice Confirmation ID: [id number] DOCUMENT ID: [id number] CONSULT REPORT [id number] LELA RIVERA, MACEY TOLBERT at 1118 CC: [id number] DICTATION DATE: 09/28/18 1256 SHIFT LAB TECHNICIAN: 09/28/18 1355 ADM IN [place] [id number] [place] [id number]
--- NOTE | 2018-10-06 11:49 | NUR ---
PT SITTING UP IN CHAIR AT BEDSIDE. CL IN REACH.
[2018-10-06 12:49] VITALS: BP 136/90
--- NOTE | 2018-10-06 13:12 | NUR ---
PT AT BS. DIONNA REVIEWED AND AGREE.
--- NOTE | 2018-10-06 13:26 | NUR ---
PHYSICAL THERAPY IN ROOM GETTING PT BACK TO BED.
--- NOTE | 2018-10-06 16:05 | NUR ---
REHAB PRESCREENING Rehab referral received and chart reviewed. This patient has [employer] as her insurance provider. This rehab is unable to accept this insurance. Thank you for this referral! Kat Barrera, CLINIC SUPERVISOR Rehab PD
[2018-10-06 16:59] VITALS: BP 142/77
--- NOTE | 2018-10-06 17:33 | NUR ---
OT NOTE: PT COMPLETED UE AROM EXS FOR INCREASED AX TOLERANCE. PT COMPLETED GROOMING TASKS WITH EXTRA TIME. THANK YOU, VINITA CHARLES
--- NOTE | 2018-10-06 17:52 | NUR ---
OT NOTE: PT SEEN IN PM; MOD ASSIST WITH TRANSFER WITH USE OF RW; BED MOB WITH INSTRUCTIONAL CUES AND MIN/MOD ASSIST; EDUCATION ON EXS TO IMPROVE FUNCTIONAL ENDURANCE ANIL JORDAN, OTR/L
--- NOTE | 2018-10-06 19:16 | NUR ---
[facility] PT DENIES NEEDS AT THIS TIME.
--- NOTE | 2018-10-06 19:30 | NUR ---
RESUMING CARE.PT LAYING IN BED A&O X4C BREATH SOUNDS EVEN , O2 ON AT 2LITERS HF, RT UPPER ARM MIDLINE SL, GUNTER IN PLACE , FAMILY BEDSIDE NO C/O PAIN OT DISTRESS @ THIS TIME CL IN REACH WILL CONT TO MONITOR
[2018-10-06 20:00] VITALS: BP 147/77
--- NOTE | 2018-10-07 03:04 | NUR ---
RESTING QUITELY IN BED RESP UNLABORED NO APPARENT DISTRESS CALL LIGHT IN REACH
[2018-10-07 04:00] VITALS: BP 140/69
[2018-10-07 06:42] LABS: BASOPHILS 0.1 % (0-2); EOSINOPHILS 1.7 % (0-7); HEMATOCRIT 27.7 % (36.0-48.0); HEMOGLOBIN 9.3 g/dL (12-16); IMMATURE GRANULOCYTES 0.9 % (0-5); LYMPHOCYTES 14.4 % (15-50); MCH 31.5 pg (26.0-34.0); MCHC 33.6 g/dL (31.0-37.0); MCV 93.9 fL (80.0-100.0); MEAN PLATELET VOLUME 9.6 fL (7.4-10.4); MONOCYTES 5.2 % (2-11); NEUTROPHILS 77.7 % (40-80); PLATELET COUNT 288 10x3/uL (130-400); RBC 2.95 10x6/uL (4.00-5.40); RDW 14.7 % (11.5-14.5); WBC 8.6 10x3/uL (4.8-10.8)
[2018-10-07 06:45] LABS: CALC OSMOLALITY 275 mosm/kg (275-300); CALCIUM 8.2 mg/dL (8.5-10.1); CARBON DIOXIDE 25.7 mmol/L (21.0-32.0); CHLORIDE - SERUM 102 mmol/L (98-107); CREATININE - SERUM 0.5 mg/dL (0.6-1.3); GLUCOSE 166 mg/dL (74-106); POTASSIUM - SERUM 3.9 mmol/L (3.5-5.1); SODIUM 136 mmol/L (136-145); TRIGLYCERIDE 110 mg/dL (30-200); UREA NITROGEN 12 mg/dL (7-18); eGFR NON AFRICAN AMERICAN > 90 mL/min (90-120)
--- NOTE | 2018-10-07 07:47 | NUR ---
PT SITTING UP ON SIDE OF BED EATING BREAKFAST. DENIES PAIN AT THIS TIME. MOM AT BEDSIDE. R UPPER ARM MIDLINE SL. 2L O2 VIA HIGH FLOW NC. NORMAL SINUS ON TELE. GUNTER IN PLACE, EVELIO URINE NOTED. PT STATED THAT SHE WOULD LIKE TO GET INTO THE SHOWER TODAY, INFORMED PT THAT I WOULD HAVE TO DISCUSS IT WITH PHYSICAL THERAPY IF OKAY AND IF PT IS STABLE ENOUGH. PT AGREED TO POC. NO FURTHER CONCERNS AT THIS TIME. BED LOWERED AND LOCKED. CL IN REACH. WILL CPOC.
--- NOTE | 2018-10-07 07:55 | NUR ---
PT ATE 100% OF BREAKFAST.
[2018-10-07 08:57] VITALS: BP 126/69
--- NOTE | 2018-10-07 09:42 | NUR ---
PHYSICAL THERAPY GOT PT UP AND INTO THE SHOWER. STUDENT NURSE, RICKEY, HELPING PT WITH SHOWER. NO FURTHER CONCERNS AT THIS TIME. CPOC. MIDLINE WRAPPED.
--- NOTE | 2018-10-07 10:13 | NUR ---
REVIEWED AND AGREE WITH ASSESMENT.
[2018-10-07 11:30] VITALS: BP 128/62
--- NOTE | 2018-10-07 11:34 | NUR ---
STAT LOCK CHANGED TO PT R LEG. TELE APPLIED. PT SINUS TACH 105
--- NOTE | 2018-10-07 13:21 | NUR ---
DRSG TO R UPPER ARM MIDLINE CHANGED AND DATED. PT DENIES FURTHER NEEDS AT THIS TIME. BED LOWERED AND LOCKED. CL IN REACH. WILL CPOC.
--- NOTE | 2018-10-07 14:41 | NUR ---
OT NOTE: PT DOING WELL; AMB WITH MOD ASSIST X 2 AND WALKER TO SHOWER; STEPPED OVER THRESHOLD AND TRANSFERRED TO BS COMMODE PLACED IN SHOWER INSTEAD OF SHOWER BENCH. PT VERY FAIGUED AND REQUIRED APPROX 5 MIN TO RECOUP. MIN ASSIST WITH UPPER BATHING; EXT ASSIST WITH LE BATHING AND PERINEAL AREA. AMB BACK TO CHAIR WITH MOD ASSIST FOLLOWING SHOWER. AGAIN, PT VERY FATIGUED. WOULD BENEFIT FROM IN PT REHAB FOR MORE EXTENSIVE STRENGTHENING AND ENDURANCE BUILDING TASKS. ANIL JORDAN,OTR/L
--- NOTE | 2018-10-07 16:34 | MORECARE ---
CASE MANAGEMENT DISCHARGE SUMMARY PATIENT: LELA RIVERA UNIT: [id number] ADM DATE: 09/19/18 AGE: 43 : [birth year] SEX: F ROOM/BED: D.0815 AUTHOR: PKDOC PHYSICIAN: REFERRING PHYSICIAN: ROYAL SCHWARTZ MD DATE OF SERVICE: 10/07/18 Discharge Plan Patient Name: LELA RIVERA Facility: [facility]:[place] : 1975 Planned Disposition: Inpatient Rehab Anticipated Discharge Date: 10/08/18 Discharge Date: Expected LOS: 19 Initial Reviewer: [email or web address] Initial Review Date: 09/21/2018 Generated: 10/07/18 5:34 pm Comments DCP- Discharge Planning Updated by [email or web address]: Jeanne Lopez on 09/22/18 3:[address] LATE ENTRY 09/21/18 @ 1610 Patient Name: LELA RIVERA Admission Status: Elective Accout number: [id number] Admission Date: 09-19-2018 : 1975 Admission Diagnosis:ACUTE RESPIRATORY FAILURE WITH HYPOXIA Attending: ROYAL SCHWARTZ Current LOS: 3 Anticipated DC Date: Planned Disposition: Home Primary Insurance: [place] [employer] [place] Discharge Planning Comments: CM met with patients mother (Alma Rosa) at beside. Patient is currently on ventilator and sedated. Plan is for patient to return to her home upon discharge. Patient lives at home with her . Alma Rosa stated that the patient and her (Edy) are currently in process of moving. Family uncertain of discharge needs at this time. CM will continue to follow and assist as needed with discharge planning/ needs. Ceramics Teacher: Jeanne Lopez DCPIA - Discharge Planning Initial Assessment Updated by [id number]: Remy Julian on 10/07/18 4:33 pm * Is the patient Alert and Oriented? Yes * How many steps to enter\exit or inside your home? * PCP Artis Garcia * Pharmacy [place] * Preadmission Environment Home with Family * ADLs Independent * Equipment None * List name and contact numbers for known caregivers / representatives who currently or will assist patient after discharge: EDY - - [phone] * Verbal permission to speak to the caregivers and representatives has been obtained from the patient. N/A * Community resources currently utilized None * Additional services required to return to the preadmission environment? No * Can the patient safely return to the preadmission environment? Yes * Has this patient been hospitalized within the prior 30 days at any hospital? No Last DP export: 09/28/18 9:20 a Patient Name: LELA RIVERA Page [id number] at 1634 All edits/amendments must be made on the electronic document DICTATION DATE: 10/07/18 163 BALL FRINGE MACHINE OPERATOR: FRANCISCA 10/07/18 163 RPT#: [id number] DC DATE: STATUS: ADM IN [facility] [address] [place] [address] END OF REPORT
--- NOTE | 2018-10-07 16:42 | MORECARE ---
CASE MANAGEMENT DISCHARGE SUMMARY PATIENT: LELA RIVERA UNIT: [id number] ADM DATE: 09/19/18 AGE: 43 : [birth year] SEX: F ROOM/BED: D.8107 AUTHOR: PKDOC PHYSICIAN: REFERRING PHYSICIAN: ROYAL SCHWARTZ MD DATE OF SERVICE: 10/07/18 Discharge Plan Patient Name: LELA RIVERA [facility] [facility] 1975 Planned Disposition: Inpatient Rehab Anticipated Discharge Date: 10/08/18 Discharge Date: Expected LOS: 19 Initial Reviewer: [email or web address] Initial Review Date: 09/21/2018 Generated: 10/07/18 5:42 pm Comments DCP- Discharge Planning Updated by [id number]: Remy Julian on 10/07/18 3:[address] Patient Name: LELA RIVERA Admission Status: Elective Accout number: [id number] Admission Date: 09-19-2018 : 1975 Admission Diagnosis:ACUTE RESPIRATORY FAILURE WITH HYPOXIA Attending: ROYAL SCHWARTZ Current LOS: 18 Anticipated DC Date: 10-08-2018 Planned Disposition: Inpatient Rehab Primary Insurance: [facility] [employer] OPTIONS SCOUT PLANNED EXTER[facility] Discharge Planning Comments: CM RECEIVED INPATIENT REHAB PRESCREENING ORDER. CM SPOKE TO DANIE OF [facility] INPATIENT [facility]HAB WHO REPORTS THEY DO NOT ACCEPT PT'S INSURANCE. CM MET WITH PT IN ROOM TO DISCUSS DISCHARGE NEEDS AND PLANNING. CM DISCUSSED AVAILABILITY OF HOME HEALTH, REHAB SERVICES AND MEDICAL EQUIPMENT. CM DISCUSSED REHAB OPTIONS, PROVIDERS AND LOCATIONS OF REHAB AT GREAT LENGTH, PUTTING OPTIONS IN WRITING AT PT'S REQUEST. PT UNSURE OF WHAT SHE WANTS TO DO AND WANTS TO DISCUSS OPTIONS WITH HER SPOUSE AND MOTHER. CM PROVIDED PT WITH CM, SUPERVISOR BOATBUILDERS WOOD AND VENTILATED RIB FITTER CONTACT INFORMATION. CM WAITING ON PT'S DECISION REGARDING REHAB (INPATIENT, SHELTER, OUTPATIENT OR HOME HEALTH) AFTER SHE DISCUSSES THESE OPTIONS WITH HER FAMILY. Remittance Clerk: Remy Julian DCP- Discharge Planning Updated by [email or web address]: Jeanne Lopez on 09/22/18 3:[address] LATE ENTRY 09/21/18 @ 1610 Patient Name: LELA RIVERA Admission Status: Elective Accout number: [id number] Admission Date: 09-19-2018 : 1975 Admission Diagnosis:ACUTE RESPIRATORY FAILURE WITH HYPOXIA Attending: ROYAL SCHWARTZ Current LOS: 3 Anticipated DC Date: Planned Disposition: Home Primary Insurance: [place] [employer] [facility] Discharge Planning Comments: CM met with patients mother (Alma Rosa) at [facility]. Patient is currently on ventilator and sedated. Plan is for patient to return to her home upon discharge. Patient lives at home with her . Alma Rosa stated that the patient and her (Edy) are currently in process of moving. Family uncertain of discharge needs at this time. CM will continue to follow and assist as needed with discharge planning/ needs. Remittance Clerk: Jeanne Lopez DCPIA - Discharge Planning Initial Assessment Updated by [id number]: Remy Julian on 10/07/18 4:33 pm * Is the patient Alert and Oriented? Yes * How many steps to enter\exit or inside your home? * PCP Artis Garcia * Pharmacy [place] * Preadmission Environment Home with Family * ADLs Independent * Equipment None * List name and contact numbers for known caregivers / representatives who currently or will assist patient after discharge: EDY - - [phone] * Verbal permission to speak to the caregivers and representatives has been obtained from the patient. N/A * Community resources currently utilized None * Additional services required to return to the preadmission environment? No * Can the patient safely return to the preadmission environment? Yes * Has this patient been hospitalized within the prior 30 days at any hospital? No Last DP export: 10/07/18 3:34 p Patient Name: LELA RIVERA Page [phone] at 1642 All edits/amendments must be made on the electronic document DICTATION DATE: 10/07/181640 PRINCIPAL ARCHAEOLOGIST: FRANCISCA 10/07/181640 RPT#: [id number] DC DATE: STATUS: ADM IN [facility] [address] [place] [address] END OF REPORT
[2018-10-07 20:00] VITALS: BP 146/81
[2018-10-08] VITALS: BP 134/73
[2018-10-08 04:00] VITALS: BP 151/77
[2018-10-08 06:07] LABS: BASOPHILS 0 % (0-2); EOSINOPHILS 2.1 % (0-7); HEMATOCRIT 30.6 % (36.0-48.0); HEMOGLOBIN 10.3 g/dL (12-16); IMMATURE GRANULOCYTES 0.9 % (0-5); LYMPHOCYTES 17.4 % (15-50); MCH 31.6 pg (26.0-34.0); MCHC 33.7 g/dL (31.0-37.0); MCV 93.9 fL (80.0-100.0); MEAN PLATELET VOLUME 9.4 fL (7.4-10.4); MONOCYTES 6.7 % (2-11); NEUTROPHILS 72.9 % (40-80); PLATELET COUNT 316 10x3/uL (130-400); RBC 3.26 10x6/uL (4.00-5.40); RDW 14.9 % (11.5-14.5); WBC 7.8 10x3/uL (4.8-10.8)
[2018-10-08 06:21] LABS: CALC OSMOLALITY 277 mosm/kg (275-300); CALCIUM 8.7 mg/dL (8.5-10.1); CHLORIDE - SERUM 101 mmol/L (98-107); CREATININE - SERUM 0.6 mg/dL (0.6-1.3); GLUCOSE 162 mg/dL (74-106); POTASSIUM - SERUM 3.8 mmol/L (3.5-5.1); SODIUM 137 mmol/L (136-145); UREA NITROGEN 13 mg/dL (7-18); eGFR NON AFRICAN AMERICAN > 90 mL/min (90-120)
[2018-10-08 09:21] VITALS: BP 132/85
--- NOTE | 2018-10-08 11:28 | NUR ---
OT NOTE: BED MOB WITH MIN ASSIST; IN ROOM AMBULATION WITH WALKER AND MIN ASSIST; TRANSFERS WITH MIN ASSIST; SIMPLE GROOMING TASKS WITH SET UP; REQUIRES EXT ASSIST WITH LE DRESSING AT THIS TIME. PT DOING VERY WELL..WOULD GREATLY BENEFIT FROM IN PT REHAB. ANIL JORDAN, OTR/L
[2018-10-08 11:59] VITALS: BP 136/56
--- NOTE | 2018-10-08 13:04 | MORECARE ---
CASE MANAGEMENT DISCHARGE SUMMARY PATIENT: LELA RIVERA UNIT: [id number] ADM DATE: 09/19/18 AGE: 43 : [birth year] SEX: F ROOM/BED: D.5307 AUTHOR: PKDOC PHYSICIAN: REFERRING PHYSICIAN: ROYAL SCHWARTZ MD DATE OF SERVICE: 10/08/18 Discharge Plan Patient Name: LELA RIVERA [facility] [facility] 1975 Planned Disposition: Inpatient Rehab Anticipated Discharge Date: 10/08/18 Discharge Date: Expected LOS: 19 Initial Reviewer: [email or web address] Initial Review Date: 09/21/2018 Generated: 10/08/18 2:04 pm Comments DCP- Discharge Planning Updated by [id number]: Remy Julian on 10/07/18 3:[address] Patient Name: LELA RIVERA Admission Status: Elective Accout number: [id number] Admission Date: 09-19-2018 : 1975 Admission Diagnosis:ACUTE RESPIRATORY FAILURE WITH HYPOXIA Attending: ROYAL SCHWARTZ Current LOS: 18 Anticipated DC Date: 10-08-2018 Planned Disposition: Inpatient Rehab Primary Insurance: [facility] PRIVATE OPTIONS SCOUT PLANNED [facility] Discharge Planning Comments: CM RECEIVED INPATIENT REHAB PRESCREENING ORDER. CM SPOKE TO DANIE OF [facility] INPATIENT REHAB WHO REPORTS THEY DO NOT ACCEPT PT'S INSURANCE. CM MET WITH PT IN ROOM TO DISCUSS DISCHARGE NEEDS AND PLANNING. CM DISCUSSED AVAILABILITY OF HOME HEALTH, REHAB SERVICES AND MEDICAL EQUIPMENT. CM DISCUSSED REHAB OPTIONS, PROVIDERS AND LOCATIONS OF REHAB AT GREAT LENGTH, PUTTING OPTIONS IN WRITING AT PT'S REQUEST. PT UNSURE OF WHAT SHE WANTS TO DO AND WANTS TO DISCUSS OPTIONS WITH HER SPOUSE AND MOTHER. CM PROVIDED PT WITH CM, DECKHAND OYSTER DREDGE AND DIFFERENTIAL REPAIRER CONTACT INFORMATION. CM WAITING ON PT'S DECISION REGARDING REHAB (INPATIENT, [facility], OUTPATIENT OR HOME HEALTH) AFTER SHE DISCUSSES THESE OPTIONS WITH HER FAMILY. Lead Network Engineer: Remy Julian DCP- Discharge Planning Updated by [email or web address]: Jeanne Lopez on 09/22/18 3:[address] LATE ENTRY 09/21/18 @ 1610 Patient Name: LELA RIVERA Admission Status: Elective Accout number: [id number] Admission Date: 09-19-2018 : 1975 Admission Diagnosis:ACUTE RESPIRATORY FAILURE WITH HYPOXIA Attending: ROYAL SCHWARTZ Current LOS: 3 Anticipated DC Date: Planned Disposition: Home Primary Insurance: [place] PRIVATE OPTIONS [facility] Discharge Planning Comments: CM met with patients mother (Alma Rosa) at [facility]. Patient is currently on ventilator and sedated. Plan is for patient to return to her home upon discharge. Patient lives at home with her . Alma Rosa stated that the patient and her (Edy) are currently in process of moving. Family uncertain of discharge needs at this time. CM will continue to follow and assist as needed with discharge planning/ needs. Lead Network Engineer: Jeanne Lopez DCPIA - Discharge Planning Initial Assessment Updated by [email or web address]: Remy Julian on 10/07/18 4:33 pm * Is the patient Alert and Oriented? Yes * How many steps to enter\exit or inside your home? * PCP Artis Garcia * Pharmacy [facility] * Preadmission Environment Home with Family * ADLs Independent * Equipment None * List name and contact numbers for known caregivers / representatives who currently or will assist patient after discharge: EDY - - [phone] * Verbal permission to speak to the caregivers and representatives has been obtained from the patient. N/A * Community resources currently utilized None * Additional services required to return to the preadmission environment? No * Can the patient safely return to the preadmission environment? Yes * Has this patient been hospitalized within the prior 30 days at any hospital? No External Providers External Provider: [facility] Next Contact Date: 10/08/2018 Service Request Date: Service Type: Resolution: Reviewer: Comments: Last DP export: 10/07/18 3:42 p Patient Name: LELA RIVERA Page [phone] at 1304 All edits/amendments must be made on the electronic document DICTATION DATE: 10/08/18 1304 HEAD FIELD HOCKEY COACH: FRANCISCA 10/08/18 1304 RPT#: [id number] DC DATE: STATUS: ADM IN [facility] [address] [place] [address] END OF REPORT
--- NOTE | 2018-10-08 13:18 | MORECARE ---
CASE MANAGEMENT DISCHARGE SUMMARY PATIENT: LELA RIVERA UNIT: [id number] ADM DATE: 09/19/18 AGE: 43 : [birth year] SEX: F ROOM/BED: D.2137 AUTHOR: PK,DOC PHYSICIAN: REFERRING PHYSICIAN: ROYAL SCHWARTZ MD DATE OF SERVICE: 10/08/18 Discharge Plan Patient Name: LELA RIVERA Facility: [facility]:[place] : 1975 Planned Disposition: Inpatient Rehab Anticipated Discharge Date: 10/08/18 Discharge Date: Expected LOS: 19 Initial Reviewer: [id number] Initial Review Date: 09/21/2018 Generated: 10/08/18 2:18 pm Comments DCP- Discharge Planning Updated by [email or web address]: Remy Julian on 10/08/18 12:[address] Patient Name: LELA RIVERA Encounter No: [id number] : 1975 Primary Insurance: [employer] PRIVATE [employer] SCOUT Anticipated DC Date: 10-08-2018 Planned Disposition: Inpatient Rehab External Planned Provider: [facility] DCP follow-up note: CM SPOKE TO PT IN ROOM WHO REQUESTED INPATIENT REHAB AT [facility] IN [place]. CM CALLED [facility] AT [phone], SPOKE TO HAFSA OF ADMISSIONS WHO TOOK REFERRAL INFORMATION AND WILL SCREEN FOR ADMISSION. CM FAXED REFERRAL TO [facility] AT [phone]. CM WAITING ADMISSION DETERMINATION WELL INSURANCE AUTHORIZATION FOR INPATIENT REHAB AT [facility]. JENNYFER Miller DCP- Discharge Planning Updated by [email or web address]: Remy Julian on 10/07/18 3:[address] Patient Name: LELA RIVERA Admission Status: Elective Accout number: [id number] Admission Date: 09-19-2018 : 1975 Admission Diagnosis:ACUTE RESPIRATORY FAILURE WITH HYPOXIA Attending: ROYAL SCHWARTZ Current LOS: 18 Anticipated DC Date: 10-08-2018 Planned Disposition: Inpatient Rehab Primary Insurance: [employer] PRIVATE OPTIONS SCOUT PLANNED EXTERNAL PROVIDER: [facility] INPATIENT REHAB Discharge Planning Comments: CM RECEIVED INPATIENT REHAB PRESCREENING ORDER. CM SPOKE TO DANIE OF [facility] INPATIENT REHAB WHO REPORTS THEY DO NOT ACCEPT PT'S INSURANCE. CM MET WITH PT IN ROOM TO DISCUSS DISCHARGE NEEDS AND PLANNING. CM DISCUSSED AVAILABILITY OF HOME HEALTH, REHAB SERVICES AND MEDICAL EQUIPMENT. CM DISCUSSED REHAB OPTIONS, PROVIDERS AND LOCATIONS OF REHAB AT GREAT LENGTH, PUTTING OPTIONS IN WRITING AT PT'S REQUEST. PT UNSURE OF WHAT SHE WANTS TO DO AND WANTS TO DISCUSS OPTIONS WITH HER SPOUSE AND MOTHER. CM PROVIDED PT WITH CM, FIRST LINE PRODUCTION SUPERVISOR AND SUBCONTRACT ADMINISTRATOR CONTACT INFORMATION. CM WAITING ON PT'S DECISION REGARDING REHAB (INPATIENT, PENITENTIARY, OUTPATIENT OR HOME HEALTH) AFTER SHE DISCUSSES THESE OPTIONS WITH HER FAMILY. Operating Systems Specialist: Remy Julian DCP- Discharge Planning Updated by [email or web address]: Jeanne Lopez on 09/22/18 3:[address] LATE ENTRY 09/21/18 @ 1610 Patient Name: LELA RIVERA Admission Status: Elective Accout number: [id number] Admission Date: 09-19-2018 : 1975 Admission Diagnosis:ACUTE RESPIRATORY FAILURE WITH HYPOXIA Attending: ROYAL SCHWARTZ Current LOS: 3 Anticipated DC Date: Planned Disposition: Home Primary Insurance: [place] PRIVATE OPTIONS SCOUT Discharge Planning Comments: CM met with patients mother (Alma Rosa) at beside. Patient is currently on ventilator and sedated. Plan is for patient to return to her home upon discharge. Patient lives at home with her . Alma Rosa stated that the patient and her (Edy) are currently in process of moving. Family uncertain of discharge needs at this time. CM will continue to follow and assist as needed with discharge planning/ needs. Operating Systems Specialist: Jeanne Lopez DCPIA - Discharge Planning Initial Assessment Updated by [id number]: Remy Julian on 10/07/18 4:33 pm * Is the patient Alert and Oriented? Yes * How many steps to enter\exit or inside your home? * PCP Artis Garcia * Pharmacy [facility] * Preadmission Environment Home with Family * ADLs Independent * Equipment None * List name and contact numbers for known caregivers / representatives who currently or will assist patient after discharge: EDY - - [phone] * Verbal permission to speak to the caregivers and representatives has been obtained from the patient. N/A * Community resources currently utilized None * Additional services required to return to the preadmission environment? No * Can the patient safely return to the preadmission environment? Yes * Has this patient been hospitalized within the prior 30 days at any hospital? No Last DP export: 10/08/18 12:04 p Patient Name: LELA RIVERA Page 90337 at 1318 All edits/amendments must be made on the electronic document DICTATION DATE: 10/08/181317 DATA REPORTING ANALYST: FRANCISCA 10/08/188 RPT#: [id number] DC DATE: STATUS: ADM IN [facility] [address] [place] [address] END OF REPORT
--- NOTE | 2018-10-08 13:26 | NUR ---
OT NOTE: (LATE ENTRY DOS 10/06/18) PT COMPLETED BED MOB AND EOB SITTING WITH MIN/MOD A. PT COMPLETED UE AROM . THANK YOU, VINITA CHARLES
--- NOTE | 2018-10-08 13:43 | NUR ---
Nutrition follow-up: Diet: Regular mechanical soft with Mighty Shake TID PO intake 100% of some meals Pt working with speech and OT Labs reviewed Wt: 235# Will continue to provide food choices and honor food preferences. RDN following.
--- NOTE | 2018-10-08 16:31 | NUR ---
RESTING QUIETLY . RESP SOB WITH O2 @ 2L PER NC. MONITOR SHOWS SR @87. WILL CONTINUE WITH POC.
[2018-10-08 17:31] VITALS: BP 100/71
--- NOTE | 2018-10-08 19:20 | NUR ---
PT URINATED FOR THE FIRST SINCE JANI WAS D/C'D , URINE YELLOW IN COLOR VERY SMALL AMOUNTS OF BLOOD IN URINE
--- NOTE | 2018-10-08 19:20 | NUR ---
RESUMING CARE. PT LAYING IN BED A&O X4 BREATH SOUNDS EVEN, PT HAS BIPAP AT BEDSIDE JANI WAS DC'D TODAY AT APPROX 1800 NOT NOTED THIS WAS PER PT , O2 ON @ 2L , PT IS SR ON MONITOR , RT UPPERARM MIDLINE, PT IS NOW UP WITH ASSIST , FAMILY @BEDSIDE CALL LIGHT IN REACH WILL CONT TO MONITOR
--- NOTE | 2018-10-08 19:39 | NUR ---
OT NOTE: PT PRESENTED IN BED. PT COMPLETED SUPINE TO SIT WITH SBA. PT COMPLETED EOB SITTING ENDURANCE WITH SBA. PT COMPLETED SIT TO STAND WITH SBA. PT IS ANXIOUS TO MOVE TO INPATIENT REHAB FOR MORE EXTENSIVE THERAPY IN ORDER TO RETURN TO PLOF. THANK YOU, VINITA CHARLES
[2018-10-08 20:00] VITALS: BP 138/75
[2018-10-09] VITALS: BP 140/72
[2018-10-09 04:00] VITALS: BP 121/65
--- NOTE | 2018-10-09 04:00 | NUR ---
PT URINATED A 2ND TIME SINCE GUNTER BEING DC'D YELLOW VERY SMALL AMOUNT OF BLOOD
[2018-10-09 06:55] LABS: BASOPHILS 0.1 % (0-2); EOSINOPHILS 2.8 % (0-7); HEMATOCRIT 31.3 % (36.0-48.0); HEMOGLOBIN 10.5 g/dL (12-16); IMMATURE GRANULOCYTES 0.9 % (0-5); LYMPHOCYTES 19.6 % (15-50); MCH 31.7 pg (26.0-34.0); MCHC 33.5 g/dL (31.0-37.0); MCV 94.6 fL (80.0-100.0); MEAN PLATELET VOLUME 9.5 fL (7.4-10.4); MONOCYTES 7.3 % (2-11); NEUTROPHILS 69.3 % (40-80); PLATELET COUNT 288 10x3/uL (130-400); RBC 3.31 10x6/uL (4.00-5.40); RDW 15.3 % (11.5-14.5); WBC 7.8 10x3/uL (4.8-10.8)
[2018-10-09 07:24] LABS: CALCIUM 8.8 mg/dL (8.5-10.1); CARBON DIOXIDE 23.8 mmol/L (21.0-32.0); CHLORIDE - SERUM 102 mmol/L (98-107); CREATININE - SERUM 0.6 mg/dL (0.6-1.3); GLUCOSE 167 mg/dL (74-106); POTASSIUM - SERUM 4.1 mmol/L (3.5-5.1); SODIUM 137 mmol/L (136-145); eGFR NON AFRICAN AMERICAN > 90 mL/min (90-120)
[2018-10-09 07:41] LABS: CALC OSMOLALITY 277 mosm/kg (275-300); UREA NITROGEN 12 mg/dL (7-18)
--- NOTE | 2018-10-09 07:42 | NUR ---
REPORT RECEIVED. WILL CONTINUE WITH POC. PT CURRENTLY LYING SEMI FOWLERS. CALL LIGHT W/I REACH. PT IS AAO AND UP AD GRACIE. RR EVEN AND UNLABORED ON ON RA. R.HAND PIV IS SALINE LOCKED. PT DENIES ANY NEEDS AT THIS TIME. NO S/S OF DISTRESS NOTED. WILL CTM.
[2018-10-09 08:27] VITALS: BP 137/81
--- NOTE | 2018-10-09 08:49 | MORECARE ---
CASE MANAGEMENT DISCHARGE SUMMARY PATIENT: LELA RIVERA UNIT: [id number] ADM DATE: 09/19/18 AGE: 43 : [birth year] SEX: F ROOM/BED: D.2137 AUTHOR: PK,DOC PHYSICIAN: REFERRING PHYSICIAN: ROYAL SCHWARTZ MD DATE OF SERVICE: 10/09/18 Discharge Plan Patient Name: LELA RIVERA Facility: [facility]:[place] : 1975 Planned Disposition: Inpatient Rehab Anticipated Discharge Date: 10/09/18 Discharge Date: Expected LOS: 20 Initial Reviewer: [id number] Initial Review Date: 09/21/2018 Generated: 10/09/18 9:49 am Comments DCP- Discharge Planning Updated by [id number]: Remy Julian on 10/08/18 12:[address] Patient Name: LELA RIVERA Encounter No: [id number] : 1975 Primary Insurance: [employer] PRIVATE [employer] SCOUT Anticipated DC Date: 10-08-2018 Planned Disposition: Inpatient Rehab External Planned Provider: [facility] DCP follow-up note: CM SPOKE TO PT IN ROOM WHO REQUESTED INPATIENT REHAB AT [facility] IN [place]. CM CALLED [facility] AT [phone], SPOKE TO HAFSA OF ADMISSIONS WHO TOOK REFERRAL INFORMATION AND WILL SCREEN FOR ADMISSION. CM FAXED REFERRAL TO [facility] AT [phone]. CM WAITING ADMISSION DETERMINATION WELL INSURANCE AUTHORIZATION FOR INPATIENT REHAB AT [facility]. JENNYFER Miller DCP- Discharge Planning Updated by [email or web address]: Remy Julian on 10/07/18 3:[address] Patient Name: LELA RIVERA Admission Status: Elective Accout number: [id number] Admission Date: 09-19-2018 : 1975 Admission Diagnosis:ACUTE RESPIRATORY FAILURE WITH HYPOXIA Attending: ROYAL SCHWARTZ Current LOS: 18 Anticipated DC Date: 10-08-2018 Planned Disposition: Inpatient Rehab Primary Insurance: [employer] PRIVATE OPTIONS SCOUT PLANNED EXTERNAL PROVIDER: [facility] INPATIENT REHAB Discharge Planning Comments: CM RECEIVED INPATIENT REHAB PRESCREENING ORDER. CM SPOKE TO DANIE OF [facility] INPATIENT REHAB WHO REPORTS THEY DO NOT ACCEPT PT'S INSURANCE. CM MET WITH PT IN ROOM TO DISCUSS DISCHARGE NEEDS AND PLANNING. CM DISCUSSED AVAILABILITY OF HOME HEALTH, REHAB SERVICES AND MEDICAL EQUIPMENT. CM DISCUSSED REHAB OPTIONS, PROVIDERS AND LOCATIONS OF REHAB AT GREAT LENGTH, PUTTING OPTIONS IN WRITING AT PT'S REQUEST. PT UNSURE OF WHAT SHE WANTS TO DO AND WANTS TO DISCUSS OPTIONS WITH HER SPOUSE AND MOTHER. CM PROVIDED PT WITH CM, FOREIGN LANGUAGE INSTRUCTOR AND DERMATOLOGIST AND DERMATOPATHOLOGIST CONTACT INFORMATION. CM WAITING ON PT'S DECISION REGARDING REHAB (INPATIENT, LONG TERM, OUTPATIENT OR HOME HEALTH) AFTER SHE DISCUSSES THESE OPTIONS WITH HER FAMILY. Ironworker Apprentice Shop: Remy Julian DCP- Discharge Planning Updated by [id number]: Jeanne Lopez on 09/22/18 3:[address] LATE ENTRY 09/21/18 @ 1610 Patient Name: LELA RIVERA Admission Status: Elective Accout number: [id number] Admission Date: 09-19-2018 : 1975 Admission Diagnosis:ACUTE RESPIRATORY FAILURE WITH HYPOXIA Attending: ROYAL SCHWARTZ Current LOS: 3 Anticipated DC Date: Planned Disposition: Home Primary Insurance: [employer] [place] PRIVATE [employer] SCOUT Discharge Planning Comments: CM met with patients mother (Alma Rosa) at beside. Patient is currently on ventilator and sedated. Plan is for patient to return to her home upon discharge. Patient lives at home with her . Alma Rosa stated that the patient and her (Edy) are currently in process of moving. Family uncertain of discharge needs at this time. CM will continue to follow and assist as needed with discharge planning/ needs. Ironworker Apprentice Shop: Jeanne Lopez DCPIA - Discharge Planning Initial Assessment Updated by [email or web address]: Remy Julian on 10/07/18 4:33 pm * Is the patient Alert and Oriented? Yes * How many steps to enter\exit or inside your home? * PCP Artis Garcia * Pharmacy [facility] * Preadmission Environment Home with Family * ADLs Independent * Equipment None * List name and contact numbers for known caregivers / representatives who currently or will assist patient after discharge: EDY - - [phone] * Verbal permission to speak to the caregivers and representatives has been obtained from the patient. N/A * Community resources currently utilized None * Additional services required to return to the preadmission environment? No * Can the patient safely return to the preadmission environment? Yes * Has this patient been hospitalized within the prior 30 days at any hospital? No Last DP export: 10/08/18 12:18 p Patient Name: LELA RIVERA Page [id number] at 0849 All edits/amendments must be made on the electronic document DICTATION DATE: 10/09/18847 VOCATIONAL SERVICES SPECIALIST: FRANCISCA 10/09/18847 RPT#: [id number] DC DATE: STATUS: ADM IN [facility] [address] [place] [address] END OF REPORT
--- NOTE | 2018-10-09 08:55 | MORECARE ---
CASE MANAGEMENT DISCHARGE SUMMARY PATIENT: LELA RIVERA UNIT: [id number] ADM DATE: 09/19/18 AGE: 43 : 73 SEX: F ROOM/BED: D.6557 AUTHOR: PK,DOC PHYSICIAN: REFERRING PHYSICIAN: ROYAL SCHWARTZ MD DATE OF SERVICE: 10/09/18 Discharge Plan Patient Name: LELA RIVERA Facility: [facility]:[place] : 1975 Planned Disposition: Inpatient Rehab Anticipated Discharge Date: 10/09/18 Discharge Date: Expected LOS: 20 Initial Reviewer: [id number] Initial Review Date: 09/21/2018 Generated: 10/09/18 9:55 am Comments DCP- Discharge Planning Updated by [id number]: Remy Julian on 10/09/18 7:[address] Patient Name: LELA RIVERA Encounter No: [id number] : 1975 Primary Insurance: [employer] PRIVATE OPTIONS SCOUT Anticipated DC Date: 10-09-2018 Planned Disposition: Inpatient Rehab External Planned Provider: [facility] DCP follow-up note: CM FAXED REFERRAL UPDATE TO [facility] [place] AT [phone]. CM WAITING ADMISSION DETERMINATION WELL INSURANCE AUTHORIZATION FOR INPATIENT REHAB AT [facility]. JENNYFER Miller DCP- Discharge Planning Updated by [id number]: Remy Julian on 10/08/18 12:[address] Patient Name: LELA RIVERA Encounter No: [id number] : 1975 Primary Insurance: [employer] PRIVATE OPTIONS [facility] Anticipated DC Date: 10-08-2018 Planned Disposition: Inpatient Rehab External Planned Provider: [facility] DCP follow-up note: CM SPOKE TO IN ROOM WHO REQUESTED INPATIENT REHAB AT [facility] IN [place]. CM CALLED [facility] AT [phone], SPOKE TO [facility] OF ADMISSIONS WHO TOOK REFERRAL INFORMATION AND WILL SCREEN FOR ADMISSION. CM FAXED REFERRAL TO [facility] AT [phone]. CM WAITING ADMISSION DETERMINATION WELL INSURANCE [facility] Remy Julian CASE MANAGEMENT DCP- Discharge Planning Updated by [id number]: Remy Julian on 10/07/18 3:[address] Patient Name: LELA RIVERA Admission Status: Elective Accout number: [id number] Admission Date: 09-19-2018 : 1975 Admission Diagnosis:ACUTE RESPIRATORY FAILURE WITH HYPOXIA Attending: ROYAL SCHWARTZ Current LOS: 18 Anticipated DC Date: 10-08-2018 Planned Disposition: Inpatient Rehab Primary Insurance: [employer] PRIVATE OPTIONS SCOUT PLANNED EXTERNAL PROVIDER: [facility] INPATIENT REHAB Discharge Planning Comments: CM RECEIVED INPATIENT REHAB PRESCREENING ORDER. CM SPOKE TO DANIE OF [facility] INPATIENT REHAB WHO REPORTS THEY DO NOT ACCEPT PT'S INSURANCE. CM MET WITH PT IN ROOM TO DISCUSS DISCHARGE NEEDS AND PLANNING. CM DISCUSSED AVAILABILITY OF HOME HEALTH, REHAB SERVICES AND MEDICAL EQUIPMENT. CM DISCUSSED REHAB OPTIONS, PROVIDERS AND LOCATIONS OF REHAB AT GREAT LENGTH, PUTTING OPTIONS IN WRITING AT PT'S REQUEST. PT UNSURE OF WHAT SHE WANTS TO DO AND WANTS TO DISCUSS OPTIONS WITH HER SPOUSE AND MOTHER. CM PROVIDED PT WITH CM, HAND BUTTON SPLITTER AND BELLY ROLLER CONTACT INFORMATION. CM WAITING ON PT'S DECISION REGARDING REHAB (INPATIENT, PRISON, OUTPATIENT OR HOME HEALTH) AFTER SHE DISCUSSES THESE OPTIONS WITH HER FAMILY. Regional Marketing Manager: Remy Julian DCP- Discharge Planning Updated by [id number]: Jeanne Lopez on 09/22/18 3:[address] LATE ENTRY 09/21/18 @ 1610 Patient Name: LELA RIVERA Admission Status: Elective Accout number: [id number] Admission Date: 09-19-2018 : 1975 Admission Diagnosis:ACUTE RESPIRATORY FAILURE WITH HYPOXIA Attending: ROYAL SCHWARTZ Current LOS: 3 Anticipated DC Date: Planned Disposition: Home Primary Insurance: [employer] [place] PRIVATE [employer]IONS SCOUT Discharge Planning Comments: CM met with patients mother (Alma Rosa) at beside. Patient is currently on ventilator and sedated. Plan is for patient to return to her home upon discharge. Patient lives at home with her . Alma Rosa stated that the patient and her (Edy) are currently in process of moving. Family uncertain of discharge needs at this time. CM will continue to follow and assist as needed with discharge planning/ needs. Regional Marketing Manager: Jeanne Lopez DCPIA - Discharge Planning Initial Assessment Updated by [email or web address]: Remy Julian on 10/07/18 4:33 pm * Is the patient Alert and Oriented? Yes * How many steps to enter\exit or inside your home? * PCP Artis Garcia * Pharmacy [place] * Preadmission Environment Home with Family * ADLs Independent * Equipment None * List name and contact numbers for known caregivers / representatives who currently or will assist patient after discharge: EDY CHANG - [phone] * Verbal permission to speak to the caregivers and representatives has been obtained from the patient. N/A * Community resources currently utilized None * Additional services required to return to the preadmission environment? No * Can the patient safely return to the preadmission environment? Yes * Has this patient been hospitalized within the prior 30 days at any hospital? No Last DP export: 10/09/18 7:49 am Patient Name: LELA RIVERA Page 29238 at 0855 All edits/amendments must be made on the electronic document DICTATION DATE: 10/09/18854 POLL WATCHER: FRANCISCA 10/09/18854 RPT#: [id number] DC DATE: STATUS: ADM IN [facility] [address] [place] [address] END OF REPORT
[2018-10-09 11:50] VITALS: BP 11/63
--- NOTE | 2018-10-09 13:19 | MORECARE ---
CASE MANAGEMENT DISCHARGE SUMMARY PATIENT: LELA RIVERA UNIT: [id number] ADM DATE: 09/19/18 AGE: 43 : [birth year] SEX: F ROOM/BED: D.3577 AUTHOR: PK,DOC PHYSICIAN: REFERRING PHYSICIAN: ROYAL SCHAWRTZ MD DATE OF SERVICE: 10/09/18 Discharge Plan Patient Name: LELA RIVERA Facility: [facility]:[place] : 1975 Planned Disposition: Inpatient Rehab Anticipated Discharge Date: 10/09/18 Discharge Date: Expected LOS: 20 Initial Reviewer: [id number] Initial Review Date: 09/21/2018 Generated: 10/09/18 2:19 pm Comments DCP- Discharge Planning Updated by [id number]: Remy Julian on 10/09/18 12:[address] Patient Name: LELA RIVERA Encounter No: [id number] : 1975 Primary Insurance: [employer] PRIVATE OPTIONS SCOUT Anticipated DC Date: 10-09-2018 Planned Disposition: Inpatient Rehab External Planned Provider: [facility] DCP follow-up note: CM FAXED REFERRAL UPDATE TO [facility] AT [phone]. CM WAITING ADMISSION DETERMINATION WELL INSURANCE AUTHORIZATION FOR INPATIENT REHAB AT [facility]. Remy Julian, CASE MANAGEMENT Appended by Remy Julian on 10/09/2018 13:12 ON AIR HOST: CM [facility]ED [facility], , REQUESTED UPDATE ON PLACEMENT. [facility] REPORTS THEY ARE CONTACTING PT'S INSURANCE FOR AUTHORIZATION OF REHAB SERVICES. CM NOTIFIED PT WHO IS STILL IN AGREEMENT WITH INPATIENT REHAB SOON POSSIBLE. CM WAITING ADMISSION DETERMINATION WELL INSURANCE AUTHORIZATION FOR INPATIENT REHAB AT [facility]. JENNYFER LEIVA DCP- Discharge Planning Updated by [email or web address]: Remy Julian on 10/08/18 12:[address] Patient Name: LELA RIVERA Encounter No: [id number] : 1975 Primary Insurance: [employer] PRIVATE OPTIONS SCOUT Anticipated DC Date: 10-08-2018 Planned Disposition: Inpatient Rehab External Planned Provider: [facility] DCP follow-up note: CM SPOKE TO PT IN ROOM WHO REQUESTED INPATIENT REHAB AT [facility] [place]. CM CALLED [facility] AT [phone], SPOKE TO [facility] OF ADMISSIONS WHO TOOK REFERRAL INFORMATION AND WILL SCREEN FOR ADMISSION. CM FAXED REFERRAL TO [facility] AT [phone]. CM WAITING ADMISSION DETERMINATION WELL INSURANCE AUTHORIZATION FOR INPATIENT REHAB AT [facility]. Remy Julian, CASE MANAGEMENT DCP- Discharge Planning Updated by [id number]: Remy Julian on 10/07/18 3:[address] Patient Name: LELA RIVERA Admission Status: Elective Accout number: [id number] Admission Date: 09-19-2018 : 1975 Admission Diagnosis:ACUTE RESPIRATORY FAILURE WITH HYPOXIA Attending: ROYAL SCHWARTZ Current LOS: 18 Anticipated DC Date: 10-08-2018 Planned Disposition: Inpatient Rehab Primary Insurance: [employer] PRIVATE OPTIONS SCOUT PLANNED EXTERNAL PROVIDER: [facility] Discharge Planning Comments: CM RECEIVED INPATIENT REHAB PRESCREENING ORDER. CM SPOKE TO DANIE OF [facility] INPAT[facility] WHO REPORTS THEY DO NOT ACCEPT PT'S INSURANCE. CM MET WITH PT IN ROOM TO DISCUSS DISCHARGE NEEDS AND PLANNING. CM DISCUSSED AVAILABILITY OF HOME HEALTH, REHAB SERVICES AND MEDICAL EQUIPMENT. CM DISCUSSED REHAB OPTIONS, PROVIDERS AND LOCATIONS OF REHAB AT GREAT LENGTH, PUTTING OPTIONS IN WRITING AT PT'S REQUEST. PT UNSURE OF WHAT SHE WANTS TO DO AND WANTS TO DISCUSS OPTIONS WITH HER SPOUSE AND MOTHER. CM PROVIDED PT WITH CM, VALVE SETTER AND WIRE WRAPPER MACHINE OPERATOR CONTACT INFORMATION. CM WAITING ON PT'S DECISION REGARDING REHAB (INPATIENT, ALF, OUTPATIENT OR HOME HEALTH) AFTER SHE DISCUSSES THESE OPTIONS WITH HER FAMILY. Aluminum Pool Installer: Remy Julian DCP- Discharge Planning Updated by [id number]: Jeanne Lopez on 09/22/18 3:[address] LATE ENTRY 09/21/18 @ 1610 Patient Name: LELA RIVERA Admission Status: Elective Accout number: [id number] Admission Date: 09-19-2018 : 1975 Admission Diagnosis:ACUTE RESPIRATORY FAILURE WITH HYPOXIA Attending: ROYAL SCHWARTZ Current LOS: 3 Anticipated DC Date: Planned Disposition: Home Primary Insurance: [employer] [place] PRIVATE OPTIONS SCOUT Discharge Planning Comments: CM met with patients mother (Alma Rosa) at [facility]. Patient is currently on ventilator and sedated. Plan is for patient to return to her home upon discharge. Patient lives at home with her . Alma Rosa stated that the patient and her (Edy) are currently in process of moving. Family uncertain of discharge needs at this time. CM will continue to follow and assist as needed with discharge planning/ needs. Aluminum Pool Installer: Jeanne MASTERS - Discharge Planning Initial Assessment Updated by [id number]: Remy Julian on 10/07/18 4:33 pm * Is the patient Alert and Oriented? Yes * How many steps to enter\exit or inside your home? * PCP Artis Garcia * Pharmacy [place] * Preadmission Environment Home with Family * ADLs Independent * Equipment None * List name and contact numbers for known caregivers / representatives who currently or will assist patient after discharge: EDY - - [phone] * Verbal permission to speak to the caregivers and representatives has been obtained from the patient. N/A * Community resources currently utilized None * Additional services required to return to the preadmission environment? No * Can the patient safely return to the preadmission environment? Yes * Has this patient been hospitalized within the prior 30 days at any hospital? No Last DP export: 10/09/18 7:55 am Patient Name: LELA RIVERA Page 34589 at 1319 All edits/amendments must be made on the electronic document DICTATION DATE: 10/09/18 1319 HOT END OPERATOR: FRANCISCA 10/09/18 1319 RPT#: [id number] DC DATE: STATUS: ADM IN [facility] [address] [place] [address] END OF REPORT
[2018-10-09] MEDS ORDERED: MIRALAX17 GM NG (15:30)
[2018-10-09] MEDS ORDERED: LANTUS INSULIN10 ML SC (15:31)
[2018-10-09] MEDS ORDERED: PREDNISONE10 MG PO (15:33)
[2018-10-09] MEDS ORDERED: IPRAT-ALBUT 0.5-3 ML UPD (15:39)
--- NOTE | 2018-10-09 15:49 | MORECARE ---
CASE MANAGEMENT DISCHARGE SUMMARY PATIENT: LELA RIVERA UNIT: [id number] ADM DATE: 09/19/18 AGE: 43 : [birth year] SEX: F ROOM/BED: D.1437 AUTHOR: PK,DOC PHYSICIAN: REFERRING PHYSICIAN: ROYAL SCHWARTZ MD DATE OF SERVICE: 10/09/18 Discharge Plan Patient Name: LELA RIVERA Facility: [facility]:[place] : 1975 Planned Disposition: Inpatient Rehab Anticipated Discharge Date: 10/09/18 Discharge Date: Expected LOS: 20 Initial Reviewer: [id number] Initial Review Date: 09/21/2018 Generated: 10/09/18 4:49 pm Comments DCP- Discharge Planning Updated by [id number]: Remy Julian on 10/09/18 12:[address] Patient Name: LELA RIVERA Encounter No: [id number] : 1975 Primary Insurance: [employer] PRIVATE OPTIONS SCOUT Anticipated DC Date: 10-09-2018 Planned Disposition: Inpatient Rehab External Planned Provider: [facility] DCP follow-up note: CM FAXED REFERRAL UPDATE TO [facility] AT [phone]. CM WAITING ADMISSION DETERMINATION WELL INSURANCE AUTHORIZATION FOR INPATIENT REHAB AT [facility]. Remy Julian, CASE MANAGEMENT Appended by Remy Julian on 10/09/2018 13:12 HEAD LIBRARIAN: [facility], , REQUESTED UPDATE ON PLACEMENT. [facility] REPORTS THEY ARE CONTACTING PT'S INSURANCE FOR AUTHORIZATION OF REHAB SERVICES. CM NOTIFIED PT WHO IS STILL IN AGREEMENT WITH INPATIENT REHAB SOON POSSIBLE. CM WAITING ADMISSION DETERMINATION WELL INSURANCE AUTHORIZATION FOR INPATIENT REHAB AT [facility]. JENNYFER LEIVA DCP- Discharge Planning Updated by [id number]: Remy Julian on 10/08/18 12:[address] Patient Name: LELA RIVERA Encounter No: [id number] : 1975 Primary Insurance: [employer] PRIVATE OPTIONS SCOUT Anticipated DC Date: 10-08-2018 Planned Disposition: Inpatient Rehab External Planned Provider: [facility] DCP follow-up note: CM SPOKE TO PT IN ROOM WHO REQUESTED [facility]AB [facility] [place]. CM CALLED [facility] AT [phone], SPOKE TO [facility] OF ADMISSIONS WHO TOOK REFERRAL INFORMATION AND WILL SCREEN FOR ADMISSION. CM FAXED REFERRAL TO [facility] AT [phone]. CM WAITING ADMISSION DETERMINATION WELL INSURANCE AUTHORIZATION FOR INPATIENT REHAB AT [facility]. Remy Julian, CASE MANAGEMENT DCP- Discharge Planning Updated by [id number]: Remy Julian on 10/07/18 3:[address] Patient Name: LELA RIVERA Admission Status: Elective Accout number: [id number] Admission Date: 09-19-2018 : 1975 Admission Diagnosis:ACUTE RESPIRATORY FAILURE WITH HYPOXIA Attending: ROYAL SCHWARTZ Current LOS: 18 Anticipated DC Date: 10-08-2018 Planned Disposition: Inpatient Rehab Primary Insurance: [employer] PRIVATE OPTIONS SCOUT PLANNED EXTERNAL PROVIDER: [facility] Discharge Planning Comments: CM RECEIVED INPATIENT REHAB PRESCREENING ORDER. CM SPOKE TO DANIE OF [facility] INPAT[facility] WHO REPORTS THEY DO NOT ACCEPT PT'S INSURANCE. CM MET WITH PT IN ROOM TO DISCUSS DISCHARGE NEEDS AND PLANNING. CM DISCUSSED AVAILABILITY OF HOME HEALTH, REHAB SERVICES AND MEDICAL EQUIPMENT. CM DISCUSSED REHAB OPTIONS, PROVIDERS AND LOCATIONS OF REHAB AT GREAT LENGTH, PUTTING OPTIONS IN WRITING AT PT'S REQUEST. PT UNSURE OF WHAT SHE WANTS TO DO AND WANTS TO DISCUSS OPTIONS WITH HER SPOUSE AND MOTHER. CM PROVIDED PT WITH CM, POLICE ARTIST AND THERMAL TECHNICIAN CONTACT INFORMATION. CM WAITING ON PT'S DECISION REGARDING REHAB (INPATIENT, [facility]PC, OUTPATIENT OR HOME HEALTH) AFTER SHE DISCUSSES THESE OPTIONS WITH HER FAMILY. Marketing Proposal Specialist: Remy Julian DCP- Discharge Planning Updated by [id number]: Jeanne Lopez on 09/22/18 3:[address] LATE ENTRY 09/21/18 @ 1610 Patient Name: LELA RIVERA Admission Status: Elective Accout number: [id number] Admission Date: 09-19-2018 : 1975 Admission Diagnosis:ACUTE RESPIRATORY FAILURE WITH HYPOXIA Attending: ROYAL SCHWARTZ Current LOS: 3 Anticipated DC Date: Planned Disposition: Home Primary Insurance: [employer] [place] PRIVATE OPTIONS SCOUT Discharge Planning Comments: CM met with patients mother (Alma Rosa) at [facility]. Patient is currently on ventilator and sedated. Plan is for patient to return to her home upon discharge. Patient lives at home with her . Alma Rosa stated that the patient and her (Edy) are currently in process of moving. Family uncertain of discharge needs at this time. CM will continue to follow and assist as needed with discharge planning/ needs. Marketing Proposal Specialist: Jeanne MASTERS - Discharge Planning Initial Assessment Updated by [id number]: Remy Julian on 10/07/18 4:33 pm * Is the patient Alert and Oriented? Yes * How many steps to enter\exit or inside your home? * PCP Artis Garcia * Pharmacy [place] * Preadmission Environment Home with Family * ADLs Independent * Equipment None * List name and contact numbers for known caregivers / representatives who currently or will assist patient after discharge: EDY - - [phone] * Verbal permission to speak to the caregivers and representatives has been obtained from the patient. N/A * Community resources currently utilized None * Additional services required to return to the preadmission environment? No * Can the patient safely return to the preadmission environment? Yes * Has this patient been hospitalized within the prior 30 days at any hospital? No Last DP export: 10/09/18 12:19 pm Patient Name: LELA RIVERA Page 50307 at 1549 All edits/amendments must be made on the electronic document DICTATION DATE: 10/09/181547 GROUNDS AND NURSERY SPECIALIST: FRANCISCA 10/09/18 1548 RPT#: [id number] DC DATE: STATUS: ADM IN [facility] [address] [place] [address] END OF REPORT
--- NOTE | 2018-10-09 16:06 | MORECARE ---
CASE MANAGEMENT DISCHARGE SUMMARY PATIENT: LELA RIVERA UNIT: [id number] ADM DATE: 09/19/18 AGE: 43 : [birth year] SEX: F ROOM/BED: D.2139 AUTHOR: PK,DOC PHYSICIAN: REFERRING PHYSICIAN: ROYAL SCHWARTZ MD DATE OF SERVICE: 10/09/18 Discharge Plan Patient Name: LELA RIVERA Facility: [facility]:[employer] : 1975 Planned Disposition: Inpatient Rehab Anticipated Discharge Date: 10/09/18 Discharge Date: Expected LOS: 20 Initial Reviewer: [id number] Initial Review Date: 09/21/2018 Generated: 10/09/18 5:06 pm Comments DCP- Discharge Planning Updated by [id number]: Remy Shankar on 10/09/18 3:[address] Patient Name: LELA RIVERA Encounter No: [id number] : 1975 Primary Insurance: [employer] SCOUT Anticipated DC Date: 10-09-2018 Planned Disposition: Inpatient Rehab External Planned Provider: [facility] DCP follow-up note: CM RECEIVED CALL FROM [facility], , THEY HAVE RECEIVED INSURANCE AUTHORIZATION AND WILL ACCEPT PT FOR REHAB TODAY. CM NOTIFIED DR. SORTO. CM NOTIFIED PT AND HER MOTHER IN ROOM. PT IN AGREEMENT WITH DISCHARGE TODAY TO REHAB AT [facility]. CM FAXED DISCHARGE INFORMATION TO [facility] AT [phone]. NURSE REPORT TO BE CALLED TO [facility] INPATIENT [facility] AT [phone], PT WILL ADMIT TO ROOM 119. [facility] TO ARRANGE VAN DRESSAGE INSTRUCTOR. Remy Shankar, CASE MANAGEMENT DCP- Discharge Planning Updated by [email or web address]: Remy Shankar on 10/09/18 12:[address] Patient Name: LELA RIVERA Encounter No: [id number] : 1975 Primary Insurance: [employer] PRIVATE OPTIONS SCOUT Anticipated DC Date: 10-09-2018 Planned Disposition: Inpatient Rehab External Planned Provider: [facility] DCP follow-up note: CM FAXED REFERRAL UPDATE TO [facility] AT [phone]. CM WAITING ADMISSION DETERMINATION WELL INSURANCE AUTHORIZATION FOR INPATIENT REHAB AT [facility]. Remy Shankar, CASE MANAGEMENT Appended by Remy Shankar on 10/09/2018 13:12 FURRIER DESIGNER: CM CALLED [facility], , REQUESTED UPDATE ON PLACEMENT. [facility] ARE CONTACTING PT'S INSURANCE FOR AUTHORIZATION OF REHAB SERVICES. CM NOTIFIED PT WHO IS STILL IN AGREEMENT WITH INPATIENT REHAB SOON POSSIBLE. CM WAITING ADMISSION DETERMINATION WELL INSURANCE AUTHORIZATION FOR INPATIENT REHAB AT [facility]. REMY SHANKAR CASE MANAGEMENT DCP- Discharge Planning Updated by [email or web address]: Remy Shankar on 10/08/18 12:[address] Patient Name: LELA RIVERA Encounter No: [id number] : 1975 Primary Insurance: [employer] [place] PRIVATE OPTIONS SCOUT Anticipated DC Date: 10-08-2018 Planned Disposition: Inpatient Rehab External Planned Provider: [facility] DCP follow-up note: CM SPOKE TO PT IN ROOM WHO REQUESTED INPATIENT REHAB AT [facility] IN [place]. CM CALLED [facility] AT [phone], SPOKE TO [facility] OF ADMISSIONS WHO TOOK REFERRAL INFORMATION AND WILL SCREEN FOR ADMISSION. CM FAXED REFERRAL TO [facility] AT [phone]. CM WAITING ADMISSION DETERMINATION WELL INSURANCE AUTHORIZATION FOR INPATIENT REHAB AT [facility]. Remy Shankar CASE MANAGEMENT DCP- Discharge Planning Updated by [id number]: Remy Shankar on 10/07/18 3:[address] Patient Name: LELA RIVERA Admission Status: Elective Accout number: [id number] Admission Date: 09-19-2018 : 1975 Admission Diagnosis:ACUTE RESPIRATORY FAILURE WITH HYPOXIA Attending: ROYAL SCHWARTZ Current LOS: 18 Anticipated DC Date: 10-08-2018 Planned Disposition: Inpatient Rehab Primary Insurance: [employer] [place] PR[employer]IONS SCOUT PLANNED EXTERNAL PROVIDER: [facility] INPAT[facility] Discharge Planning Comments: CM RECEIVED INPATIENT REHAB PRESCREENING ORDER. CM SPOKE TO DANIE OF [facility] INPAT[facility] WHO REPORTS THEY DO NOT ACCEPT PT'S INSURANCE. CM MET WITH PT IN ROOM TO DISCUSS DISCHARGE NEEDS AND PLANNING. CM DISCUSSED AVAILABILITY OF HOME HEALTH, REHAB SERVICES AND MEDICAL EQUIPMENT. CM DISCUSSED REHAB OPTIONS, PROVIDERS AND LOCATIONS OF REHAB AT GREAT LENGTH, PUTTING OPTIONS IN WRITING AT PT'S REQUEST. PT UNSURE OF WHAT SHE WANTS TO DO AND WANTS TO DISCUSS OPTIONS WITH HER SPOUSE AND MOTHER. CM PROVIDED PT WITH CM, WELDING MACHINE OPERATOR/TENDER AND [employer] WELDING MACHINE OPERATOR CONTACT INFORMATION. CM WAITING ON PT'S DECISION REGARDING REHAB (INPATIENT, LONG-TERM, OUTPATIENT OR HOME HEALTH) AFTER SHE DISCUSSES THESE OPTIONS WITH HER FAMILY. Technical Business Systems Analyst: Remy Shankar DCP- Discharge Planning Updated by [id number]: Jeanne Lopez on 09/22/18 3:[address] LATE ENTRY 09/21/18 @ 1610 Patient Name: LELA RIVERA Admission Status: Elective Accout number: [id number] Admission Date: 09-19-2018 : 1975 Admission Diagnosis:ACUTE RESPIRATORY FAILURE WITH HYPOXIA Attending: ROYAL SCHWARTZ Current LOS: 3 Anticipated DC Date: Planned Disposition: Home Primary Insurance: [place] PR[employer] SCOUT Discharge Planning Comments: CM met with patients mother (Alma Rosa) at beside. Patient is currently on ventilator and sedated. Plan is for patient to return to her home upon discharge. Patient lives at home with her . Alma Rosa stated that the patient and her (Edy) are currently in process of moving. Family uncertain of discharge needs at this time. CM will continue to follow and assist as needed with discharge planning/ needs. Technical Business Systems Analyst: Jeanne Lopez DCPIA - Discharge Planning Initial Assessment Updated by [id number]: Remy Shankar on 10/07/18 4:33 pm * Is the patient Alert and Oriented? Yes * How many steps to enter\exit or inside your home? * PCP Artis Garcia * Pharmacy [place] * Preadmission Environment Home with Family * ADLs Independent * Equipment None * List name and contact numbers for known caregivers / representatives who currently or will assist patient after discharge: EDY - - [phone] * Verbal permission to speak to the caregivers and representatives has been obtained from the patient. N/A * Community resources currently utilized None * Additional services required to return to the preadmission environment? No * Can the patient safely return to the preadmission environment? Yes * Has this patient been hospitalized within the prior 30 days at any hospital? No Last DP export: 10/09/18 2:49 pm Patient Name: LELA RIVERA Page 46884 at 1606 All edits/amendments must be made on the electronic document DICTATION DATE: 10/09/181605 GREENSMAN: FRANCISCA 10/09/181605 RPT#: [id number] DC DATE: STATUS: ADM IN [facility] [address] [place] [address] END OF REPORT
[2018-10-09] MEDS ORDERED: HUMULIN R100 U/ML SC (16:17)
--- NOTE | 2018-10-09 16:26 | NUR ---
OT NOTE: PT PERFORMED VERY WELL TDOAY. BED MOB WITH SPV; SIT TO STAND WITH SBA; ABLE TO AMB WITH WALKER AND MIN ASSIST X 2 FOR GREATER THAN 200FT; PT WAS ABLE TO GO WITHOUT 02 FOR APPROX 100FT AND SATS REMAINED ABOVE 90. UPON RETURNING TO ROOM, SATS HAD DROPPED TO 87; 02 WAS APPLIED AND SATS JUMPED BACK UP TO 92 IN LESS THAN 1 MIN. PT TOLERATED SITTING UP IN CHAIR WITHOUT DIFFICULTY. REPORTED THAT SHE AMB TO BATHROOM SEVERAL TIMES OVERNIGHT WITH USE OF WALKER. PT ABLE TO PERFORM SIMPLE GROOMING AND FEEDING WITH SET UP; MIN ASSIST TO KAR GOWN; SBA TO ADJUST SOCKS WHILE IN SEATED POSITION. ANIL JORDAN, OTR/L
--- NOTE | 2018-10-09 17:09 | NUR ---
[facility] TRANSF[facility]IA [facility] TRANSPORT. MIDLINE REMOVED WITH CATHETER TIP FULLY INTACT. PT SIGNED PROPER DISCHARGE INSTRUCTION AND REMOVED ALL VALUABLES FROM THE ROOM. REPORT CALLED TO [facility]. TELEMETRY REMOVED AND RETURNED.
--- NOTE | 2018-10-09 17:22 | NUR ---
OT NOTE: PT COMPLETED SUPINE TO SIT WITH SBA. PT COMPLETED EOB SITTING WITH SBA. PT COMPLETED SIT TO STAND WITH SBA. PT COMPLETED MODIFIED LEG SQUATS WITH CGA. PT COMPLETED BUE AROM EXS. THANK YOU, VINITA CHARLES
--- NOTE | 2018-10-09 17:31 | MORECARE ---
CASE MANAGEMENT DISCHARGE SUMMARY PATIENT: LELA RIVERA UNIT: [id number] ADM DATE: 09/19/18 AGE: 43 : [birth year] SEX: F ROOM/BED: D.2137 AUTHOR: PK,DOC PHYSICIAN: REFERRING PHYSICIAN: ROYAL SCHWARTZ MD DATE OF SERVICE: 10/09/18 Discharge Plan Patient Name: LELA RIVERA Facility: [facility]:[place] : 1975 Planned Disposition: Inpatient Rehab Anticipated Discharge Date: 10/09/18 Discharge Date: 10/09/2018 Expected LOS: 20 Initial Reviewer: [email or web address] Initial Review Date: 09/21/2018 Generated: 10/09/18 6:31 pm Comments DCP- Discharge Planning Updated by [email or web address]: Remy Shankar on 10/09/18 3:[address] Patient Name: LELA RIVERA Encounter No: [id number] : 1975 Primary Insurance: [employer] PRIVATE OPTIONS SCOUT Anticipated DC Date: 10-09-2018 Planned Disposition: Inpatient Rehab External Planned Provider: [facility] DCP follow-up note: [facility] , THEY HAVE RECEIVED INSURANCE AUTHORIZATION AND WILL ACCEPT PT FOR REHAB TODAY. CM NOTIFIED DR. SORTO. CM NOTIFIED PT AND HER MOTHER IN ROOM. PT IN AGREEMENT WITH DISCHARGE TODAY TO REHAB AT [facility]. CM FAXED DISCHARGE INFORMATION TO [facility] AT [phone]. NURSE REPORT TO BE CALLED TO [facility] AT [phone], PT WILL ADMIT TO ROOM 119. [facility] TO ARRANGE VAN ELECTRONICS ASSEMBLER. Remy Shankar, CASE MANAGEMENT DCP- Discharge Planning Updated by [id number]: Remy Shankar on 10/09/18 12:[address] Patient Name: LELA RIVERA Encounter No: [id number] : 1975 Primary Insurance: [employer] [place] PRIVATE OPTIONS SCOUT Anticipated DC Date: 10-09-2018 Planned Disposition: Inpatient Rehab External [facility] DCP follow-up note: CM FAXED REFERRAL UPDATE TO [facility] AT [phone]. CM WAITING ADMISSION DETERMINATION WELL INSURANCE AUTHORIZATION FOR [facility]PATIENT REHAB AT [facility]. Remy Shankar, CASE MANAGEMENT Appended by Remy Shankar on 10/09/2018 13:12 SENIOR INTERNAL AUDITOR: CM CALLED [facility], , REQUESTED UPDATE ON PLACEMENT. [facility] REPORTS THEY ARE CONTACTING PT'S INSURANCE FOR AUTHORIZATION OF REHAB SERVICES. CM NOTIFIED PT WHO IS STILL IN AGREEMENT WITH INPATIENT REHAB SOON POSSIBLE. CM WAITING ADMISSION DETERMINATION WELL INSURANCE AUTHORIZATION FOR [facility]PAT[facility] AT [facility]. REMY SHANKAR, CASE MANAGEMENT DCP- Discharge Planning Updated by [email or web address]: Remy Shankar on 10/08/18 12:[address] Patient Name: LELA RIVERA Encounter No: [id number] : 1975 Primary Insurance: [place] PRIVATE OPTIONS SCOUT Anticipated DC Date: 10-08-2018 Planned Disposition: Inpatient Rehab External Planned Provider: [facility] DCP follow-up note: CM SPOKE TO PT IN ROOM WHO REQUESTED INPATIENT REHAB AT [facility] IN [place]. CM CALLED [facility] AT [phone], SPOKE TO [facility] OF ADMISSIONS WHO TOOK REFERRAL INFORMATION AND WILL SCREEN FOR ADMISSION. CM FAXED REFERRAL TO [facility] AT [phone]. CM WAITING ADMISSION DETERMINATION WELL INSURANCE AUTHORIZATION FOR [facility]PATIENT RE[facility]AB [facility]. Remy Shankar CASE MANAGEMENT DCP- Discharge Planning Updated by [email or web address]: Remy Shankar on 10/07/18 3:[address] Patient Name: LELA RIVERA Admission Status: Elective Accout number: [id number] Admission Date: 09-19-2018 : 1975 Admission Diagnosis:ACUTE RESPIRATORY FAILURE WITH HYPOXIA Attending: ROYAL SCHWARTZ Current LOS: 18 Anticipated DC Date: 10-08-2018 Planned Disposition: Inpatient Rehab Primary Insurance: [place] PRIVATE OPTIONS SCOUT PLANNED EXTERNAL PROVIDER: [facility] Discharge Planning Comments: CM RECEIVED INPATIENT REHAB PRESCREENING ORDER. CM SPOKE TO DANIE OF [facility] WHO REPORTS THEY DO NOT ACCEPT PT'S INSURANCE. CM MET WITH PT IN ROOM TO DISCUSS DISCHARGE NEEDS AND PLANNING. CM DISCUSSED AVAILABILITY OF HOME HEALTH, REHAB SERVICES AND MEDICAL EQUIPMENT. CM DISCUSSED REHAB OPTIONS, PROVIDERS AND LOCATIONS OF REHAB AT GREAT LENGTH, PUTTING OPTIONS IN WRITING AT PT'S REQUEST. PT UNSURE OF WHAT SHE WANTS TO DO AND WANTS TO DISCUSS OPTIONS WITH HER SPOUSE AND MOTHER. CM PROVIDED PT WITH CM, IMPROVEMENT ADVISOR AND CONCESSION MANAGER CONTACT INFORMATION. CM WAITING ON PT'S DECISION REGARDING REHAB (INPATIENT, [facility], OUTPATIENT OR HOME HEALTH) AFTER SHE DISCUSSES THESE OPTIONS WITH HER FAMILY. Manager Sharepoint: Remy Shankar DCP- Discharge Planning Updated by [email or web address]: Jeanne Lopez on 09/22/18 3:[address] LATE ENTRY 09/21/18 @ 1610 Patient Name: LELA RIVERA Admission Status: Elective Accout number: [id number] Admission Date: 09-19-2018 : 1975 Admission Diagnosis:ACUTE RESPIRATORY FAILURE WITH HYPOXIA Attending: ROYAL SCHWARTZ Current LOS: 3 Anticipated DC Date: Planned Disposition: Home Primary Insurance: [place] PRIVATE OPTIONS SCOUT Discharge Planning Comments: CM met with patients mother (Alma Rosa) at beside. Patient is currently on ventilator and sedated. Plan is for patient to return to her home upon discharge. Patient lives at home with her . Alma Rosa stated that the patient and her (Edy) are currently in process of moving. Family uncertain of discharge needs at this time. CM will continue to follow and assist as needed with discharge planning/ needs. Manager Sharepoint: Jeanne Lopez DCPIA - Discharge Planning Initial Assessment Updated by [email or web address]: Remy Shankar on 10/07/18 4:33 pm * Is the patient Alert and Oriented? Yes * How many steps to enter\exit or inside your home? * PCP Artis Garcia * [facility] * Preadmission Environment Home with Family * ADLs Independent * Equipment None * List name and contact numbers for known caregivers / representatives who currently or will assist patient after discharge: EDY - - [phone] * Verbal permission to speak to the caregivers and representatives has been obtained from the patient. N/A * Community resources currently utilized None * Additional services required to return to the preadmission environment? No * Can the patient safely return to the preadmission environment? Yes * Has this patient been hospitalized within the prior 30 days at any hospital? No Last DP export: 10/09/18 3:06 pm Patient Name: LELA RIVERA Page [id number] at 1731 All edits/amendments must be made on the electronic document DICTATION DATE: 10/09/181730 METAL TRIMMER: FRANCISCA 10/09/181730 RPT#: [id number] DC DATE:10/09/18 STATUS: DIS IN [facility] [address] [place] [address] END OF REPORT
== END 2018-10-09 17:11 | DRG 870 ==
LOC: D.ICU 16:19 → D.M2 18:14
PROVIDERS: Family Medicine; Internal Medicine Nephrology; Internal Medicine Pulmonary Disease; Student in an Organized Health Care Education/Training Program; ADMIT Family Medicine; ATTEND Family Medicine
PROC: 5A1955Z Respiratory Ventilation, Greater than 96 Consecutive Hours (ICD-10-PCS; principal; 2018-09-19)
PROC: 05HM33Z Insertion of Infusion Device into Right Internal Jugular Vein, Percutaneous Approach (ICD-10-PCS; 2018-09-19)
PROC: 0BH17EZ Insertion of Endotracheal Airway into Trachea, Via Natural or Artificial Opening (ICD-10-PCS; 2018-09-19)
PROC: 03HY32Z Insertion of Monitoring Device into Upper Artery, Percutaneous Approach (ICD-10-PCS; 2018-09-20)
PROC: 4A133B1 Monitoring of Arterial Pressure, Peripheral, Percutaneous Approach (ICD-10-PCS; 2018-09-20)
PROC: 4A133J1 Monitoring of Arterial Pulse, Peripheral, Percutaneous Approach (ICD-10-PCS; 2018-09-20)
DX: A41.9 Sepsis, unspecified organism (principal); J96.01 Acute respiratory failure with hypoxia; J11.00 Influenza due to unidentified influenza virus with unspecified type of pneumonia; J18.9 Pneumonia, unspecified organism; J96.02 Acute respiratory failure with hypercapnia; F17.203 Nicotine dependence unspecified, with withdrawal; I24.8 Other forms of acute ischemic heart disease; G47.33 Obstructive sleep apnea (adult) (pediatric); E66.01 Morbid (severe) obesity due to excess calories; D64.9 Anemia, unspecified; E61.1 Iron deficiency; Z68.39 Body mass index [BMI] 39.0-39.9, adult; R50.9 Fever, unspecified; I27.20 Pulmonary hypertension, unspecified; E09.9 Drug or chemical induced diabetes mellitus without complications; J44.9 Chronic obstructive pulmonary disease, unspecified; L89.101 Pressure ulcer of unspecified part of back, stage 1

== ENCOUNTER 2018-12-24 11:00 | Outpatient (CLI) | payer MEDICAID ==
[~2018-12-24] VITALS: Ht 170.2 cm; Wt 100.5 kg
--- NOTE | ~2018-12-24 | HEMODYNAMI ---
PATIENT:LELA RIVERA MEDICAL RECORD: [id number] : [birth year] LOCATION:[facility] ADMISSION DATE: 12/24/18 Generatedon:12/24/201813:17 Patient name: LELA RIVERA Patient #: [id number] SSN: : Date of study: 12/24/2018 Page: Of Hemodynamic Procedure Report Patient Data Patient Demographics Procedure consent was obtained First Name: LELA Gender: Female Last Name: MIGUEL : 1975 Middle Initial: ADOLFO Age: 43 year(s) Patient #: [id number] Race: Unknown Additional ID: [id number] Contact details [address]: [address] [place] [address] State: [place] City: [place] Zip code: [address] Past Medical History Allergies Allergen Reaction Date Comments Reported Other allergy 12/24/2018 Measle vaccine, vancomycin Admission Admission Data Admission Date: 12/24/2018 Admission Time: 11:00 Height (in.): 65 BSA: 2.06 (m2) Height (cm.): 165.1 BMI: 36.44 (kg/m2) Weight (lbs.): 219 Weight (kg.): 99.34 Lab Results Lab Result Date: 12/24/2018 Lab Result Time: 0:00 Biochemistry Name Units Result Min Max BUN mg/dl 15 --(--*-)-- 7 18 Creatinine mg/dl 0.7 --(*---)-- 0.6 1.3 CBC Name Units Result Min Max Hemoglobin g/dl 13.9 --(*---)-- 13.5 17.5 Procedure Procedure Types Cath Procedure Diagnostic Procedure C [facility] w/Coronaries Procedure Description Procedure Date Procedure Date: 12/24/2018 Procedure Start Time: 12:53 Procedure End Time: 13:10 Procedure Staff Name Function Gerardo London MD Performing Physician Rodrigo Mera RN Senior Solutions Consultant Tracy Londono RT Monitor Reji Egan RT Scrub Timur Phelps RN Nurse Procedure Data Cath Procedure Fluoroscopy Diagnostic fluoroscopy Total fluoroscopy Time: 5 time: 5 min min Diagnostic fluoroscopy Total fluoroscopy dose: 779 dose: 779 mGy mGy Contrast Material Contrast Material Type Amount (ml) Isovue 300 54 Entry Location Entry Primary Successful Side Size Upsize Upsize Entry Closure Bazan ccessful Closure Location (Fr) 1 (Fr) 2 (Fr) Remarks Device Remarks Radial Right 6 Fr Mechanical TR artery Short Compression Femoral Right 5 Fr Exoseal artery Estimated blood loss: 10 ml Diagnostic catheters Device Type Used For End Catheter Placement DIAGNOSTIC Choteau 110cm 5 Procedure Fr catheter ([id number]) DIAGNOSTIC JL 3.5 5Fr Procedure catheter ([id number]) DIAGNOSTIC JL 3.5 5Fr Procedure catheter ([id number]) Procedure Complications No complications Procedure Medications Medication Administration Route Dosage 0.9% NaCl I.V. 100 ml/hr Oxygen etCO2 Nasal cannula 2 l/min Heparin Flush Bag added to field 2 bags (1000units/500ml NS) Lidocaine 2% added to field 20 Radial Cocktail added to field 1 syringe (Verapamil 2mg/Nitro 400mcg/Heparin 1500units) Versed I.V. 2 mg Fentanyl I.V. 100 mcg Versed I.V. 1 mg Radial Cocktail I.A. 1 syringe (Verapamil 2mg/Nitro 400mcg/Heparin 1500units) Versed I.V. 1 mg Hemodynamics Rest BSA: 2.06 (m2) HGB: 13.9 (g/dl) O2 Consumption: Estimated: 197.52 (ml/min) O2 Co nsumption indexed: Estimated:95.88 (ml/min/m) Heart Rate: 59 (bpm) Pressure Samples Time Site Value (mmHg) Purpose Heart Use Rate(bpm) 12:56 LV 108/-6,3 Snapshot 69 12:56 LV 118/-4,9 Snapshot 71 12:56 AO 98/72(86) Pullback 67 12:56 LV 105/11,22 Pullback 67 Gradients Valve Time Site 1 Site 2 Mean SEP/DFP Peak To Heart Use (mmHg) (sec/min) Peak Rate (mmHg) (bpm) Aortic 12:56 LV AO 3 7 7 67 105/11,22 98/72(86) Calculations Valve P-P Mean Valve Index Valve Source Name Gradient Area Flow (cm2) Aortic 7 3 7 3 Snapshots Pre Cath Intra NCS Post Cath Vital Signs Time Heart Resp SPO2 etCO2 NIBP Rhythm Pain Sedation Rate (ipm) (%) (mmHg) (mmHg) Status Level (bpm) 12:37:16 62 24 99 33.7 124/66(98) NSR 0 (11) 10(A) , No pain 12:41:30 62 23 98 27 114/65(92) NSR 0 (11) 10(A) , No pain 12:45:39 59 21 98 37.5 115/61(81) NSR 0 (11) 10(A) , No pain 12:49:47 59 14 96 35.2 105/68(88) NSR 0 (11) 10(A) , No pain 12:53:51 56 21 96 41.2 118/68(83) NSR 0 (11) 10(A) , No pain 12:58:01 68 15 94 41.2 122/63(92) NSR 0 (11) 10(A) , No pain 13:02:13 70 17 96 38.9 125/63(92) NSR 0 (11) 10(A) , No pain 13:06:24 68 20 100 39.7 125/67(94) NSR 0 (11) 10(A) , No pain 13:10:36 62 24 98 33.7 128/68(87) NSR 0 (11) 10(A) , No pain Medications Time Medication Route Dose Verified Delivered Reason Notes Effectiveness by by 12:39:49 0.9% NaCl I.V. 100 Timur Timur Per ml/hr Lenin Phelps physician RN RN 12:40:03 Oxygen etCO2 2 l/min Timur Timur for low 02 Nasal Lorigan Lorigan sats cannula RN RN 12:40:14 Heparin Flush added 2 bags Timur Timur used for Bag to Lorigan Lorigan procedure (1000units/500ml field RN RN NS) 12:40:28 Lidocaine 2% added 20ml Timur Timur for local to vial Lorigan Lorigan anesthetic field RN RN 12:40:49 Radial Cocktail added 1 Timur Timur used for (Verapamil to syringe Lorigan Lorigan procedure 2mg/Nitro field RN RN 400mcg/Heparin 1500units) 12:52:36 Versed I.V. 2 mg Timur Timur for sedation Lenin Phelps RN RN 12:52:48 Fentanyl I.V. 100 mcg Timur Timur for sedation Lenin Phelps RN, RN 12:53:51 Versed I.V. 1 mg Timur Ding for sedation Lenin Phelps RN, RN 12:54:08 Radial Cocktail I.A. 1 Timur Carrillo for (Verapamil syringe Lorigan Surya vasodilation 2mg/Nitro RAMONA TOLBERT 400mcg/Heparin 1500units) 12:56:02 Versed I.V. 1 mg Timur Ding for sedation Lenin Phelps RN lens blank gauger Log Time Note 12:19:45 Patient Height : 65 inches 12:19:51 Patient Weight : 219 lbs 12:24:20 Lab Result : BUN 15 mg/dl 12:24:20 Lab Result : Hemoglobin 13.9 g/dl 12:24:20 Lab Result : Creatinine 0.7 mg/dl 12:25:55 Diagnostic Cath status Elective 12:25:57 Rodrigo Mera RN sent for patient. Start room use. 12:25:59 Time tracking: Regular hours (M-F 7:00 - 5:00) 12:26:04 Plan of Care:Hemodynamics will remain stable., Cardiac rhythm will remain stable., Comfort level will be maintained., Respiratory function will remain adequate., Patient/ family verbilizes understanding of procedure., Procedure tolerated without complication., Recovers from procedure without complications.. 12:29:14 Patient received from Pre/Post Procedure Room to [facility] 2 Alert and oriented. Tansferred to table in Supine position. 12:29:15 Warm blankets applied, and lexi hugger turned on for patient comfort. 12:29:15 Correct patient and procedure confirmed by team. 12:29:18 Signed procedure consent form obtained from patient. 12:29:19 ECG and BP/O2 sat monitors applied to patient. 12:36:12 Vital chart was started 12:39:49 0.9% NaCl 100 ml/hr I.V. was administered by Timur Phelps RN; Per physician; 12:40:03 Oxygen 2 l/min etCO2 Nasal cannula was administered by Timur Phelps RN; for low 02 sats; 12:40:14 Heparin Flush Bag (1000units/500ml NS) 2 bags added to field was administered by Timur Phelps RN; used for procedure; 12:40:28 Lidocaine 2% 20ml vial added to field was administered by Timur Phelps RN; for local anesthetic; 12:40:49 Radial Cocktail (Verapamil 2mg/Nitro 400mcg/Heparin 1500units) 1 syringe added to field was administered by Timur Phelps RN; used for procedure; 12:45:02 Baseline sample Acquired. 12:45:06 Rhythm: sinus rhythm 12:45:08 Full Disclosure recording started 12:45:37 H&P Date Dictated: 12/01/2018 Within 30 days and on chart., H&P Addendum completed by physician on day of procedure. (MUST COMPLETE FOR ALL OUTPATIENTS). 12:45:39 Pre-procedure instructions explained to patient. 12:45:44 Family in waiting room. 12:45:46 Patient NPO since Midnight. 12:46:13 Patient allergic to Other allergyMeasle vaccine, vancomycin 12:46:16 Is the patient allergic to Iodine/contrast media? No. 12:46:18 Was the patient premedicated? Yes 12:46:19 Is patient on blood thinner?No 12:46:22 Patient diabetic? No. 12:46:30 Patient not . Patient has had hysterectomy. 12:46:42 HCG/Urine : completed and on chart, negative 12:46:50 Snore? Yes 12:46:51 Sleep apnea? Yes 12:46:52 Deviated septum? No 12:46:55 Airway obstruction? No ? 12:47:27 IV patent on arrival in left forearm with 0.9% NaCl at [facility]. 12:47:31 Lab results completed and on chart. 12:47:37 Right Radial & Right Groin area was prepped with chlora-prep and draped in sterile fashion 12:47:45 Patient pain scale 0/10 ?. 12:47:47 Alarms reviewed by R. N. 12:47:51 Sharps counted by scrub and verified by R.N. 12:47:52 Physician paged 12:51:12 Physician arrived 12:51:12 --------ALL STOP TIME OUT------ 12:51:13 Final Timeout: patient, procedure, and site verified with staff and physician. All members of the team are in agreement. 12:51:15 Right Radial & Right Groin site verified by team. 12:51:20 Maximum allowable Isovue 300 dose 300ml. Physician notified. (300ml for normal creatinines. For patients with creatinine of 1.7 or higher multiply weight(kg) x 5 divided by creatinine.) 12:51:26 Fire Safety Assessment: A--An alcohol-based skin anteseptic being used preoperatively., C--Open oxygen or nitrous oxide is being used., D--An ESU, laser, or fiber-optic light is being used. 12:51:32 Physical assessment completed. ASA score P 2 - A patient with mild systemic disease as per Gerardo London MD. 12:51:41 Sedation plan: IV Moderate Sedation Medication:Versed, Fentanyl 12:51:53 Use device set Radial Dx or PCI 12:51:55 ACIST Syringe (19259) opened to sterile field. 12:51:55 Medline Cath Pack ([id number]) opened to sterile field. 12:51:56 Bag Decanter (2002S) opened to sterile field. 12:51:56 DIAGNOSTIC WIRE .035 260cm J wire (699994) opened to sterile field. 12:51:57 ACIST Hand Control (52575) opened to sterile field. 12:51:57 ACIST Manifold (10863) opened to sterile field. 12:51:58 Tegaderm 4 x 4 (1626W) opened to sterile field. 12:52:00 MBrace Wrist Support ([id number]) opened to sterile field. 12:52:03 SHEATH 6FR Slender (17-7382) opened to sterile field. 12:52:36 Versed 2 mg I.V. was administered by Timur Phelps RN; for sedation; 12:52:48 Fentanyl 100 mcg I.V. was administered by Timur Phelps RN; for sedation; 12:52:53 Procedure started. 12:53:19 Local anesthetic to right radial artery with Lidocaine 2% by Gerardo London MD.INITIAL ACCESS ONLY 12:53:51 Versed 1 mg I.V. was administered by Timur Phelps RN; for sedation; 12:54:01 A 6 Fr Short sheath was inserted into the Right Radial artery 12:54:08 Radial Cocktail (Verapamil 2mg/Nitro 400mcg/Heparin 1500units) 1 syringe I.A. was administered by Gerardo London MD; for vasodilation; 12:54:26 A DIAGNOSTIC Choteau 110cm 5 Fr catheter (562646) was advanced over the wire and used for Procedure. 12:55:35 LV angiography performed. 12:56:02 Versed 1 mg I.V. was administered by Timur Phelps RN; for sedation; 12:56:43 LV gram done using MUÑIZ 12:56:50 EF : 55 % 12:57:25 RCA angiography performed. 12:58:30 Catheter removed. 12:58:56 A DIAGNOSTIC JL 3.5 5Fr catheter ([id number]) was advanced over the wire and used for Procedure. 13:03:31 SHEATH 5FR [place] (PIQ767) opened to sterile field. 13:03:42 Catheter removed. 13:04:17 Local anesthetic to right femoral artery with Lidocaine 2% by Gerardo London MD.ADDITIONAL ACCESS 13:04:32 A 5 Fr sheath was inserted into the Right Femoral artery 13:05:01 A DIAGNOSTIC JL 3.5 5Fr catheter ([id number]) was advanced over the wire and used for Procedure. 13:06:27 LCA angiography performed. 13:06:49 Catheter removed. 13:06:56 TR BAND Standard ([id number]) opened to sterile field. 13:07:03 EXOSEAL 5Fr (EX500) opened to sterile field. 13:07:16 Sheath removed intact; hemostasis achieved with Exoseal to the Right Femoral artery. 13:07:53 Sheath removed intact; hemostasis achieved with Mechanical Compression to the Right Radial artery. 13:08:01 Procedure ended.(Physican Out) 13:08:13 Fluoroscopy time 05.00 minutes. 13:08:17 Fluoroscopy dose: 779 mGy 13:08:17 Flurop Dose total: 779 13:08:31 Contrast amount:Isovue 300 54ml. 13:08:35 Sharps counted by scrub and verified by R.N. 13:08:38 TR band inflated with 10cc of air. 13:08:40 Insertion/operative site no bleeding no hematoma. 13:08:46 Post right femoral artery:stable 13:08:52 Post right radial artery:stable 13:08:56 Post Procedure Pulses reassessed and unchanged 13:09:11 Post procedure: right dorsailis pedis pulse 1+ Palpable, but thready & weak; easily obliterated. 13:09:23 Post-procedure physical assessment completed. ASA score P 2 - A patient with mild systemic disease as per Gerardo London MD. 13:09:26 Post procedure rhythm: unchanged. 13:09:34 Estimated blood loss: 10 ml 13:09:36 Post procedure instruction explained to patient.Patient verbalizes understanding. 13:09:44 Procedure and supply charges have been captured, reviewed, submitted and are correct. 13:10:07 Procedure Complication : No complications 13:10:10 Vital chart was stopped 13:10:11 See physician's report for complete and final results. 13:10:13 Report given to Pre/Post Procedure Room. 13:10:17 Patient transfered to Pre/Post Procedure Room with Stretcher. 13:10:19 Procedure ended. 13:10:19 Full Disclosure recording stopped 13:10:22 End room use (Document Last) Device Usage Item Name Manufacture Quantity Catalog Hospital Part Current Minimal Lot# / Number Charge Number Stock Stock Serial# Code ACIST Acist 1 44790 167193 791315 501567 20 Syringe Medical (13416) Systems Inc Medline Medline 1 [id number] 674290 62978 317007 5 Cath Pack ([id number]) Bag Microtek 1 2001S 537667 19419 052656 5 Decanter Medical Inc. (2001S) DIAGNOSTIC St Rex 1 116789 901260 636193 235399 30 WIRE .035 260cm J wire (337512) ACIST Hand Acist 1 31393 036885 835053 270602 5 Control Medical (74145) Systems Inc ACIST Acist 1 55478 402676 576405 694394 5 Manifold Medical (84869) Systems Inc Tegaderm 4 3M 1 1626W 416963 495495 893697 5 x 4 (1626W) MBrace Advanced 1 140-0250-00 454883 47158 550229 5 Wrist Vascular Support Dynamics ([id number]) SHEATH 6FR Terumo 1 [id number] 085776 366125 632351 5 Slender (80-1060) DIAGNOSTIC Terumo 1 40-6483 054991 096971 352469 5 Choteau 110cm 5 Fr catheter (880700) DIAGNOSTIC Cardinal 1 [id number] 950376 133460 301324 5 JL 3.5 5Fr Health catheter (011428W) SHEATH 5FR Terumo 1 ITG047 492826 982935 523868 5 [place]anticoke (JTC866) TR BAND Terumo 1 SEI85-IVQ 736991 178823 149657 40 Standard (HFT17CIC) EXOSEAL 5Fr Cardinal 1 EX500 926440 045621 894130 10 (EX500) Health Signature Audit Webster Stage Time Signature Unsigned Intra-Procedure 12/24/2018 Tracy Londono 1:17:20 PM RT(R) Signatures Monitor : Tracy Londono Signature : RT Date : Time : [place] [address] [place] [address]
--- NOTE | ~2018-12-24 | OP ---
PATIENT NAME: LELA RIVERA MEDICAL RECORD: [id number] :[birth year] LOCATION:D.CAT ADMISSION DATE: SURGEON: KATEY BROWER MD DATE OF OPERATION: 12/24/2018 PROCEDURE: Left heart catheterization, selective coronary angiography, right radial approach. CATHETERS: A 5-Jamaican sheath. Radial sheath. The procedure was well tolerated. The patient was returned to the nieto, sheath removed. ExoSeal device as well as TR band was placed. FINDINGS: Left ventriculography in 30-degree MUÑIZ view: Normal wall motion and normal systolic function. CORONARY ANATOMY: LEFT MAIN: Left main is free of disease. LAD: Free of disease in the diagonal system. CIRCUMFLEX: Free of disease in marginal system. RIGHT CORONARY ARTERY: Dominant artery, gives rise to PDA, free of disease. IMPRESSION: Normal systolic function, normal coronary anatomy. TRANSINT:[id number] Voice Confirmation ID: [id number] DOCUMENT ID: [id number] KATEY BROWER MD CC: [id number] DICTATION DATE: 12/24/18 1310 PLISSE MACHINE OPERATOR HELPER: 12/24/18 1514 DEP CLI 12/24/18 [facility] [address] [place] [address]
[~2018-12-24 11:00] MED LIST: HUMULIN R100 U/ML SC; IPRAT-ALBUT 0.5-3 ML UPD; LANTUS INSULIN10 ML SC; MIRALAX17 GM NG; PREDNISONE10 MG PO; TOPROL XL50 MG PO
[2018-12-24] MEDS ORDERED: MERIBIN5 MG PO (11:26)
[2018-12-24 11:36] VITALS: BP 137/35; Ht 170.2 cm; Wt 100.5 kg
[2018-12-24 11:48] LABS: CALC OSMOLALITY 274 mosm/kg (275-300); CALCIUM 9.3 mg/dL (8.5-10.1); CARBON DIOXIDE 24.9 mmol/L (21.0-32.0); CHLORIDE - SERUM 104 mmol/L (98-107); CREATININE - SERUM 0.7 mg/dL (0.6-1.3); HCG SERUM NEGATIVE (NEGATIVE); POTASSIUM - SERUM 3.9 mmol/L (3.5-5.1); SODIUM 137 mmol/L (136-145); UREA NITROGEN 15 mg/dL (7-18); eGFR NON AFRICAN AMERICAN > 90 mL/min (90-120)
[2018-12-24 11:49] LABS: GLUCOSE 103 mg/dL (74-106)
[2018-12-24 11:51] LABS: BASOPHILS 0.4 % (0-2); EOSINOPHILS 0.7 % (0-7); HEMATOCRIT 38.8 % (36.0-48.0); HEMOGLOBIN 13.9 g/dL (12-16); IMMATURE GRANULOCYTES 0.3 % (0-5); LYMPHOCYTES 35.1 % (15-50); MCH 32.7 pg (26.0-34.0); MCHC 35.8 g/dL (31.0-37.0); MCV 91.3 fL (80.0-100.0); MEAN PLATELET VOLUME 9.8 fL (7.4-10.4); NEUTROPHILS 54.5 % (40-80); PLATELET COUNT 238 10x3/uL (130-400); RBC 4.25 10x6/uL (4.00-5.40); RDW 12.2 % (11.5-14.5); WBC 7.4 10x3/uL (4.8-10.8)
--- NOTE | 2018-12-24 13:30 | NUR ---
PT RECEIVED VIA STRETCHER FROM RETAIL STORE ASSISTANT FOR RECOVERY POST PROCEDURE. PT AWAKE BUT DROWSY, DENIES PAIN OR DISCOMFORT. TR BAND TO R WRIST, DRESSING CDI NO BLEEDING OR SWELLING NOTED. 5FR EXOCELE TO R GROIN, DRESSING CDI NO BLEEDING OR SWELLING NOTED, PEDAL PULSES PALPABLE. IV PATENT INFUSING VIA ORDERS. HR NSR RATE 61, BP 128/67, O2 SAT 99 ON 2L/NC. AT BEDSIDE, CALL LIGHT IN REACH. PT INSTRUCTED TO KEEP HEAD ON PILLOW AND R LEG STRAIGHT
--- NOTE | 2018-12-24 13:45 | NUR ---
PT RESTING W/O COMPLAINTS. TR BAND TO R WRIST, DRESSING CDI NO BLEEDING OR SWELLING NOTED. R GROIN SOFT, DRESSING CDI NO BLEEDING OR SWELLING NOTED. PEDAL PULSES PALPABLE. CALL LIGHT IN REACH, DENIES NEEDS AT THIS TIME. AT BEDSIDE.
--- NOTE | 2018-12-24 14:15 | NUR ---
PT RESTING COMFORTABLY, TR BAND TO R WRIST, DRESSING CDI NO BLEEDING OR HEMATOMA NOTED. R GROIN DRESSING REMAINS CDI NO BLEEDING OR SWELLING NOTED. VSS, CALL LIGHT IN REACH
--- NOTE | 2018-12-24 14:32 | NUR ---
PT STILL RESTING QUIETLY. TR BAND IN PLACE, NO BLEEDING OR SWELLING NOTED. R GROIN SOFT NO BLEEDING OR SWELLING NOTED. 3CC AIR REMOVED FROM TR BAND W/O BLEEDING. OFFERED TO SIT HOB UP SLIGHTLY, PT REFUSES AT THIS TIME PREFERS TO STAY LAYING. PT OFFERED SANDWICH AND DRINK DOESNT WANT AT THIS TIME. CALL LIGHT IN REACH. DENIES OTHER NEEDS
--- NOTE | 2018-12-24 14:50 | NUR ---
4 ADD'L CC AIR REMOVED FROM TR BAND, NO BLEEDING OR SWELLING NOTED. R GROIN REMAINS SOFT TO TOUCH, NO BLEEDING OR SWELLING NOTED. IV REMOVED W CATH INTACT , MONITORS AND O2 REMOVED. PT UP TO DRESS FOR DISCHARGE
--- NOTE | 2018-12-24 15:00 | NUR ---
DISCHARGE INSTRUCTIONS REVIEWED W PT AND , BOTH VERBALIZED UNDERSTANDING. TR BAND AND REMAINING AIR REMOVED NO BLEEDING OR SWELLING NOTED. 2X2 AND TEGADERM DRESSING APPLIED TO SITE.
--- NOTE | 2018-12-24 15:12 | NUR ---
PT DISCHARGED VIA WC TO PRIVATE VEHICLE WITH ALL BELONGINGS
== END 2018-12-24 15:10 | disposition home or self-care (01) ==
LOC: D.CATH 11:00
PROVIDERS: ATTEND Internal Medicine Interventional Cardiology
DX: I20.9 Angina pectoris, unspecified (principal); Z01.812 Encounter for preprocedural laboratory examination

== ENCOUNTER → 2019-03-02 13:39 | Outpatient (CLI) | payer MEDICAID ==
[2018-12-24 11:36] VITALS: BMI 34.7
[~2019-03-02 13:39] MED LIST changes: +MERIBIN5 MG PO
== END | disposition home or self-care (01) ==
LOC: D.RT 13:39
PROVIDERS: ATTEND Internal Medicine Pulmonary Disease
DX: J44.9 Chronic obstructive pulmonary disease, unspecified (principal)

== ENCOUNTER → 2020-02-18 10:09 | Outpatient (CLI) | payer MEDICAID ==
[2018-12-24 11:36] VITALS: BMI 34.7
== END | disposition home or self-care (01) ==
LOC: D.LAB 10:09
PROVIDERS: ATTEND Internal Medicine Pulmonary Disease
DX: Z11.59 Encounter for screening for other viral diseases (principal)

== ENCOUNTER → 2020-02-21 13:49 | Outpatient (CLI) | payer MEDICAID ==
[2018-12-24 11:36] VITALS: BMI 34.7
== END | disposition home or self-care (01) ==
LOC: D.RT 10-26 13:00 → D.CT 10-26 14:00 → D.RT 13:49
PROVIDERS: ATTEND Internal Medicine Pulmonary Disease
DX: J98.4 Other disorders of lung (principal)

== ENCOUNTER 2020-04-30 19:43 | Emergency (ER) | payer MEDICAID ==
[~2020-04-30] VITALS: Ht 170.2 cm; Wt 113.6 kg
[2020-04-30 19:56] VITALS: Ht 170.2 cm; Wt 113.6 kg
[2020-04-30 21:53] LABS: BILIRUBIN NEGATIVE (NEGATIVE); KETONE NEGATIVE (NEGATIVE); NITRITE NEGATIVE (NEGATIVE); UROBILINOGEN NORMAL mg/dL (< 2)
[2020-04-30 21:55] LABS: HCG URINE NEGATIVE (NEGATIVE)
[2020-04-30 21:58] LABS: BASOPHILS 0.1 % (0-2); EOSINOPHILS 0 % (0-7); HEMATOCRIT 38.9 % (36.0-48.0); HEMOGLOBIN 13.6 g/dL (12-16); IMMATURE GRANULOCYTES 0.2 % (0-5); LYMPHOCYTES 14.4 % (15-50); MCH 33.3 pg (26.0-34.0); MCV 95.3 fL (80.0-100.0); MEAN PLATELET VOLUME 9.5 fL (7.4-10.4); MONOCYTES 14.5 % (2-11); NEUTROPHILS 70.8 % (40-80); RBC 4.08 10x6/uL (4.00-5.40); RDW 12.2 % (11.5-14.5); WBC 8.3 10x3/uL (4.8-10.8)
[2020-04-30 22:01] LABS: PLATELET COUNT 164 10x3/uL (130-400)
[2020-04-30 22:07] LABS: CALCIUM 8.8 mg/dL (8.5-10.1); CARBON DIOXIDE 25.2 mmol/L (21.0-32.0); CREATININE - SERUM 0.9 mg/dL (0.6-1.3); POTASSIUM - SERUM 3.2 mmol/L (3.5-5.1)
[2020-04-30 22:12] LABS: ALBUMIN 3.3 g/dL (3.4-5.0); BILIRUBIN - TOTAL 0.64 mg/dL (0.2-1.3); PROTEIN - SERUM 7.5 g/dL (6.4-8.2)
[2020-04-30] MEDS ORDERED: AUGMENTIN 875-11 TAB PO (23:16)
[2020-04-30 23:59] VITALS: BP 138/75
== END 2020-04-30 23:59 | disposition home or self-care (01) ==
LOC: D.ER 19:43
PROVIDERS: Family Medicine
DX: R50.9 Fever, unspecified (principal); R94.4 Abnormal results of kidney function studies; R74.0 Nonspecific elevation of levels of transaminase and lactic acid dehydrogenase [LDH]; R73.9 Hyperglycemia, unspecified; E87.6 Hypokalemia; E87.1 Hypo-osmolality and hyponatremia; R59.1 Generalized enlarged lymph nodes; I10 Essential (primary) hypertension